=== PATIENT | female | born 1940 | race Caucasian/White ===

== ENCOUNTER 2022-06-13 20:06 | Outpatient (CLI) | payer MEDICARE, BC, SELFPAY | END 2022-06-13 20:07 | disposition home or self-care (01) | LOC: AMB 06-23 14:07 | PROVIDERS: PCP Family Medicine; Visit Provider Family Medicine | DX: R53.1 Weakness (principal) | CPT/HCPCS: A0998 ==

== ENCOUNTER 2022-07-14 12:38 | Emergency (ER) | payer MEDICARE, BC, SELFPAY ==
[2022-07-14 12:52] VITALS: BP 123/79; PULSE 91; RESP 18; TEMP 36.5; O2SAT 93; BMI 94.6
--- NOTE | 2022-07-14 14:06 | CRLHL7_ITS ---
For Patients: As a result of the Century Cures Act, medical imaging exams and procedure reports are released immediately into your electronic medical record. You may view this report before your referring provider. If you have questions, please contact your health care provider. INDICATION: Left ankle injury TECHNIQUE: X-ray left ankle, three views COMPARISON: None FINDINGS: Marked diffuse subcutaneous edema. The ankle mortise is intact. Small corticated osseous fragment at the lateral aspect of the calcaneus on the AP view appears chronic. Negative for acute fracture or dislocation. Moderate calcaneal spur. IMPRESSION: Marked subcutaneous edema. No acute fracture or dislocation. Moderate calcaneal spur. Dictated by Claire Martinez MD @ 07/14/2022 3:02:06 PM (Electronically Signed)
--- NOTE | 2022-07-14 14:56 | ED_ITS ---
HPI - Extremity Injury (Lower) General Chief Complaint: Extremity Pain/Injury, Lower Stated Complaint: Cant put weight on left leg Time Seen by Provider: 07/14/22 14:51 History of Present Illness HPI Narrative: This 82-year-old female comes in with severe pain in her left ankle. She states that she fell about a month ago and did have x-ray at that time. She was told that it was an ankle sprain. She has been ambulating on this ankle since then but reports that her pain is been worse over the past week and today she had great difficulty bearing weight due to pain in her left ankle. She does not report any other injury. She does live alone at home. Related Data Home Medications Medication Instructions Recorded Confirmed atorvastatin 20 mg tablet mg 07/14/22 bupropion HCl 150 mg 24 hr tablet, mg PO 07/14/22 extended release irbesartan 75 mg tablet mg 07/14/22 metformin 500 mg tablet mg 07/14/22 oxybutynin chloride 5 mg tablet mg 07/14/22 verapamil 240 mg tablet,extended mg PO 07/14/22 release Allergies Allergy/AdvReac Type Severity Reaction Status Date / Time No Known Drug Allergies Allergy Verified 07/14/22 12:58 Review of Systems Status of ROS: Reports: 10 or more systems reviewed and unremarkable except as noted in History and below Narrative: Constitutional: No fevers, no weight gain or loss. Eyes: No discharge. No vision changes. HENT: No congestion, no sore throat, no ear pain. Cardiovascular: No chest pain, no palpitations. Respiratory: No shortness of breath, no wheezes, no cough. Gastrointestinal: No abdominal pain, no vomiting, no diarrhea. Genitourinary: No dysuria, no hematuria. Musculoskeletal: Left ankle pain as described above. Skin: No rashes, no pruritis. Neurological: No dizziness, weakness, sensory change, speech change. Endo/Heme/Allergies: No bruising or bleeding. No polydipsia. Pysch: no suicidality, no anxiety, no insomnia. All other systems reviewed and are negative. Exam Narrative: Exam Narrative: Constitutional: Well-developed, well-nourished, no acute distress. HEENT: Normocephalic, atraumatic. Neck: Normal range of motion. Nontender. Supple. Heart: Regular. No murmurs. Normal rate. Intact distal pulses. Lungs: Clear to auscultation. No chest discomfort. No wheezes, rhonchi, or rales. Abdomen: Normal bowel sounds. Nontender. No rebound tenderness. Genitalia: Deferred. Back: No midline tenderness. Normal range of motion. Extremities: Left ankle pain. No sign of deformity or bruising. No ligament instability. Skin: Intact. No rash. Warm. No erythema or pallor. Neurologic: No altered sensation. No weakness. Alert and oriented. Psychiatric: No suicidality. No anxiety or depression. No insomnia. Nursing notes and vitals signs are reviewed. Const: Vital Signs, click to edit/add: Vital Signs - 24 hr 07/14/22 12:52 Temperature 97.7 F Pulse Rate [Pulse Oximeter] 91 Respiratory Rate 18 Blood Pressure [Le ft Upper Arm] 123/79 Pulse Oximetry 93 Oxygen Delivery Me thod Room Air Course Vital Signs Vital signs: Initial Vital Signs Temperature 97.7 F 07/14/22 12:52 Temperature Source Temporal Artery Scan 07/14/22 12:52 Pulse Rate 91 07/14/22 12:52 Respiratory Rate 18 07/14/22 12:52 Blood Pressure 123/79 07/14/22 12:52 Blood Pressure Mean 93 07/14/22 12:52 Blood Pressure Position Supine 07/14/22 12:52 Pulse Oximetry 93 07/14/22 12:52 Oxygen Delivery Method 07/14/22 12:52 Vital Signs Temperature 97.7 F 07/14/22 12:52 Pulse Rate 91 07/14/22 12:52 Respiratory Rate 18 07/14/22 12:52 Blood Pressure 123/79 07/14/22 12:52 Pulse Oximetry 93 07/14/22 12:52 Oxygen Delivery Method 07/14/22 12:52 Temperature 97.7 F 07/14/22 12:52 Pulse Rate 91 07/14/22 12:52 Respiratory Rate 18 07/14/22 12:52 Blood Pressure 123/79 07/14/22 12:52 Pulse Oximetry 93 07/14/22 12:52 Oxygen Delivery Method 07/14/22 12:52 MDM - Extremity Injury (Lower) MDM Narrative Medical decision making narrative: This patient comes in with worsening left ankle pain since a fall that occurred about a month ago. X-ray images of the ankle today show no acute findings. She does have significant swelling in that left lower extremity chronically due to lymphedema. The patient received an intramuscular injection of morphine 10 mg which brought some relief to her symptoms. Family members will be able to stay with her and help her as needed. She is okay to be discharged home. She did receive a prescription for [place]. Imaging Data XR L Ankle: Radiologist's impression: Marked subcutaneous edema. No acute fracture or dislocation. Moderate calcaneal spur. Discharge Plan Discharge Clinical Impression: Ankle sprain and strain Patient Disposition: Home w/ Parent or Adult Condition: Stable Additional Instructions: Use medications as needed and directed. Increase activity as tolerated. Follow up with MD or return if worsening symptoms occur. Prescriptions: No Action metformin 500 mg tablet Label Comments: TAKE ONE TABLET BY MOUTH TWICE DAILY WITH MEALS atorvastatin 20 mg tablet Label Comments: TAKE ONE TABLET BY MOUTH ONE TIME DAILY AT BEDTIME irbesartan 75 mg tablet Label Comments: TAKE ONE TABLET BY MOUTH ONE TIME DAILY verapamil 240 mg tablet extended release PO Label Comments: TAKE ONE TABLET BY MOUTH ONE TIME DAILY with a meal oxybutynin chloride 5 mg tablet Label Comments: TAKE ONE TABLET BY MOUTH TWICE DAILY bupropion HCl 150 mg tablet extended release 24 hr PO Label Comments: TAKE ONE TABLET BY MOUTH EVERY DAY IN THE MORNING. Follow Up/Referrals: Joaquina Cartwright DO [Primary Care Provider] - Stand Alone Forms: [employer] Info Instructions
[2022-07-14 15:00] VITALS: BP 143/80; RESP 16
[2022-07-14 15:30] VITALS: BP 152/88; RESP 16
[2022-07-14] MEDS: MORPHINE 10 MG/ML inj IM (15:45)
[2022-07-14 16:00] VITALS: BP 135/78; RESP 18
[2022-07-14 16:30] VITALS: BP 125/67
--- OUTSIDE RECORDS SUMMARY | 2022-07-21 21:33 | XMS_ITS | Clinical Summary ---
:1940 Author Organization [facility] [place] [address] Care Team Providers Name Role Phone Yossi Mendezrick Unavailable Unavailable Shay Woodard MD Unavailable Joaquina Cartwright DO Primary Care Provider Allergies Active Allergy Reactions Severity Noted Date Comments Adhesive Tape Contact Dermatitis 03/01/2007 TAKES TH E SKIN OFF Aspirin, Buffered Anaphylaxis High 03/01/2007 Dexamethasone GI Upset Low 03/01/2007 Esophagitis fr om prolonged high dose use. Brompheniramine Maleate Rash 03/01/2007 Triamterene-Hydrochloroth Itching 03/01/2007 iazid Ethylenediamine 08/10/2010 Raw Skin Iodine *Unknown - Pt 06/18/2008 Doesn't Remember Lisinopril Cough 03/14/2011 Shellfish Containing Anaphylaxis 06/18/2008 Products Simvastatin Myalgia 02/27/2012 Improved after stopping med Sulfite Anaphylaxis High 03/01/2007 Tetanus Antitoxin 03/01/2007 possible a llergy Hydrocodone-Acetaminophen Hypotension 04/10/2012 Ca used low BP, feels Strange Medications Medication Sig Dispensed Refills Start Date End Date Status Insulin USE USE 100 Each 1 08/29/2016 Active Syringe-Needle U-100 DIRECTED WITH 0.5 mL 31 gauge x INSULIN 02/26Indications: Diabetes mellitus without complication (HC) acetaminophen Take 1 tablet by 0 12/02/2018 Active (TYLENOL EXTRA mouth every 6 STRGTH) 500 mg tablet hours if needed. Max acetaminophen dose: 4000mg in 24 hrs. ULTICARE PEN NEEDLE FOR ADMINISTERING 100 Each 3 12/05/2018 Active 31 gauge x INSULIN AT HOME. 02/26Indications: Controlled type 2 diabetes mellitus with complication, with long-term current use of insulin (HC) CPAPIndications: CPAP machine for 1 Device 11/10/2019 Active Obstructive sleep home use at apnea pressure: 11 , Heated humidifier x 1 q 5 yr, Water chamber x 1 q 6 mo, chin strap x 1 q 6 mo, nasal interface mask x 1 q 3 mo, with nasal cushion x 2 q mo, heated pap tubing x 1 q 3 mo, headgear x 1 q 6 mo, non disposable filter 1 q 6 mo, disposable filter x 2 q mo Length of Need: 99 months, Frequency of use: Daily cholecalciferol Take 1 capsule by 0 09/14/2020 Active (VITAMIN D-3) 2,000 mouth once daily. unit capsule 3 times weekly Blood-Glucose Meter Dispense glucose 1 Each 0 09/12/2021 Active (True Metrix Glucose meter, test strips Meter)Indications: and lancets Diabetes mellitus covered by the without complication patient insurance. (HC) Test 1 time per day. blood sugar Dispense item 100 Each 3 09/12/2021 Act allie diagnostic (True covered by pt ins Metrix Glucose Test TEST ONCE DAILY Strip) stripIndications: Diabetes mellitus without complication (HC) insulin glargine, Inject 12 units 10 Each 3 10/03/2021 Active U-100, 100 unit/mL (3 subcutaneous mL) penIndications: before bedtime. Controlled type 2 Product diabetes mellitus desired:BASAGLAR with complication, with long-term current use of insulin (HC) diclofenac topical Apply 2 g 100 g 1 10/03/2021 Active (VOLTAREN) 1 % topically to gelIndications: DDD affected area(s) 4 (degenerative disc times daily. Apply disease), lumbosacral to lower back four times daily for pain EPINEPHrine (EpiPen Inject 0.3 mg (1 2 Each 1 06/19/2022 Active 2-Carlos) 0.3 mg/0.3 mL pen) intramuscular auto-injectorIndicati each time if ons: Allergic needed for reaction to drug, Allergic Reaction. sequela oxybutynin (DITROPAN) Take 1 Tablet (5 180 Tablet 0 06/19/2022 Active 5 mg mg) by mouth two tabletIndications: times daily. Urinary incontinence, unspecified type atorvastatin Take 1 Tablet (20 90 Tablet 3 10/02/2022 Active (LIPITOR) 20 mg mg) by mouth at tabletIndications: bedtime. Mixed hyperlipidemia buPROPion (WELLBUTRIN Take 1 Tablet (150 90 Tablet 3 2 Active XL) 150 mg mg) by mouth every Extended-Release morning. tabletIndications: Fibromyalgia DULoxetine (CYMBALTA) Take 2 Capsules 180 Capsule 3 10/02/2022 Active 30 mg Delayed-release (60 mg) by mouth capsuleIndications: once daily. Anxiety, Depression, recurrent (HC) irbesartan (AVAPRO) Take 1 Tablet (75 90 Tablet 3 10/02/2022 Active 75 mg mg) by mouth once tabletIndications: daily. Diabetic nephropathy associated with type 2 diabetes mellitus (HC) metFORMIN Take 1 Tablet (500 180 Tablet 3 10/02/2022 Active (GLUCOPHAGE) 500 mg mg) by mouth two tabletIndications: times daily with Diabetes mellitus meals. 9 am and 7 without complication pm (HC) verapamil SR (CALAN Take 1 Tablet (240 90 Tablet 3 10/02/2022 Active SR) 240 mg extended mg) by mouth once release daily with a meal. tabletIndications: Essential hypertension clotrimazole Apply topically to 45 g 0 06/19/2022 Active (LOTRIMIN) 1 % affected area(s) creamIndications: two times daily. Tinea corporis Until resolved, about 2-4 weeks Active Problems Problem Noted Date CKD (chronic kidney disease) stage 3, GFR 30-59 ml/min 10/23/2020 Overview: Per chart review: creatinine intermitten tly elevated since 2012 ranging from 1.07-1.66. In 2019, Dr Guerrero noted baseline to be around 1.2 ROB started Dec with increase creatinine 20-30% (depending if compare with 1.07 or baseline 1.2). Repeat end of Oct 2020, if increasing further t/c decreasing irbesartan and nephrology consult. See lab note sent via [facility] [facility] [facility]. Controlled type 2 diabetes mellitus with complication, with long-term 04/12/2020 current use of insulin Trigeminal neuralgia of right side of face 09/03/2019 BRITANY 04/05/2004 AHI-45 09/22/2018 Lymphedema of both lower extremities 07/01/2015 DDD (degenerative disc disease), thoracic 12/02/2014 DDD (degenerative disc disease), lumbar 12/02/2014 Severe lumbar facet arthropathy 10/20/2014 S/P knee replacement 06/07/2012 ACP (advance care planning) 08/13/2011 Overview: Discussed 08/13/2011 At risk for falling 08/13/2011 Overview: Uses cane when out; home: has a walker. 08/13/2011 Chronic pain 05/16/2011 Fibromyalgia 07/20/2010 Overview: S/P Accupuncture x 2 with no benefit. 05/16/2011 Unspecified urinary incontinence 07/20/2010 Overview: Reports much improved with Ditropan. Glenohumeral Arthropathy, Right Shoulder 03/22/2010 Colonic polyps 04/07/2009 Overview: Colonoscopy 04/2009 normal repeat in 5 ye ars Colonoscopy 06/2014 diverticulosis, no fo llow up needed Unspecified essential hypertension 06/19/2008 Esophageal reflux 07/24/2007 Dysthymic disorder 07/24/2007 Generalized osteoarthrosis, unspecified site 7 Type II or unspecified type diabetes mellitus without mention of 07/24/2007 complication, not stated as uncontrolled Overview: No October 2012, 11/27 Morbid obesity 05/07/2007 Mixed hyperlipidemia 03/06/2007 Other specified cardiac dysrhythmias(427.89) 7 Overview: SVT s/p Ablation 10/1991 Resolved Problems Problem Noted Date Resolved Date Long-term (current) use of anticoagulants 06/28/2008 02/03/2009 Routine general medical examination at [facility] 007 10/20/2014 facility Encounters Date Type Specialty Care Team Description 07/18/2022 Office Visit Joaquina Cartwright DO Derm Problem (Spot on right arm/); Ankle Pa in/problem 07/18/2022 Travel 06/19/2022 Office Visit Joaquina Cartwright DO Derm Problem (Check spot on (L) arm); Refil l Request; Leg Swelling; M edication Management; Hea ring Problem; Lab; B ack Pain 06/19/2022 Travel 05/21/2022 Refill Joaquina Cartwright DO Refi ll Request; OXYBUTYNIN 05/17/2022 Refill Joaquina Cartwright DO Refi ll Request (Oxybutinin 5mg tab ) 04/30/2022 Refill Joaquina Cartwright DO Refi ll Request (Duloxetine) from Last 3 Months Immunizations Name Administration Dates Next Due AMB INFLUENZA IIV3 (AGE 65+ YRS) PF 07/14/2018 (Flu Clinic Only) COVID-19 vaccine (Moderna 12/29/2020 100mcg/0.5mL) PF, MDV Influenza, High-dose Inactivated 06/14/2020, 07/14/2019, , 09/16/2015 Influenza, High-dose Quadrivalent 07/25/2021 Inactivated Influenza, Inactivated AIIV4 (Age 65+ 06/19/2022 Years) Preserv Free Influenza, Inactivated IIV3 (Age 65+ 08/07/2017 Years) Preserv Free Pneumococcal Poly,23-Valent 05/17/2016 (Pneumovax) Pneumococcal conj 13-Valent (Prevnar 02/15/2015 13) Zoster (Shingrix-RZV, recombinant) 01/20/2021, 09/20/2020 Family History Medical History Relation Name Comments Heart Disease Father [place] Hypertension Father [place] Hypertension Mother Melissa Stroke Mother Melissa cva at 56yo Heart Disease Sister Rhina Tachycardia; sp Ablation - didn't work; on Atenolol Anesthesia Problem No Family History Blood Disease No Family History Cancer-breast No Family History Relation Name Status Comments Father Boston (Age 61) accidental asp hyxiation Mother Melissa (Age 63) hemorrhagic [place] Sister Rhina Alive Social History Tobacco Use Types Packs/Day Years Used Date Never Smoker Smokeless Tobacco: Never Used Tobacco Cessation: Counseling Given: Yes Alcohol Use Standard Drinks/Week Comments Yes 0 (1 standard drink = 0.6 oz pure alcoho l) Rare Alcohol Habits Answer Date Recorded How often do you have a drink containing alcohol? Monthly or less 04/12/2020 How many drinks containing alcohol do you have on a 1 or 2 02/25/2019 typical day when you are drinking? How often do you have six or more drinks on one Never 02/25/2019 occasion? Comment: Rare 06/19/2022 Sex Assigned at Date Recorded Not on file COVID-19 Exposure Response Date Recorded In the last 10 days, have you been in contact with No / Unsu re 07/18/2022 10:09 AM CDT someone who was confirmed or suspected to have Coronavirus/COVID-19? Obstetrics History Para Term AB IAB SAB Ectopic Multiple Living Live Births 2 2 1 2 Date Outcome GA Total Labor/2nd/3rd Weight Sex Delivery Anes PTL Judy A 1 A5 Name Clin Labor Para Term Last Filed Vital Signs Vital Sign Reading Time Taken Comments Blood Pressure 131/76 07/18/2022 10:33 AM CDT Pulse 88 07/18/2022 10:33 AM CDT Temperature 37.5 ??C (99.5 ??F) 04/12/2020 11:05 AM CDT Respiratory Rate 20 05/30/2017 2:15 PM CDT Oxygen Saturation 96% 07/18/2022 10:33 AM CDT Inhaled Oxygen Concentration - - Weight 111.8 kg (246 lb 6.4 oz) 06/19/2022 11:33 AM CDT Height 161.3 cm (5' 3.5) 10/03/2021 7:51 AM CEREAL CHEMIST Body Mass Index 42.96 10/03/2021 7:51 AM CEREAL CHEMIST Plan of Treatment Upcoming Encounters Date Type Specialty Care Team Description 08/15/2022 Office Visit Bhumi Velez DPM [address] [phone] (Wo sonia) 10/04/2022 Office Visit Joaquina Cartwright DO [phone] (Adriano scott) Health Maintenance Due Date Last Done Comments Tetanus booster 03/18/2018 03/18/2008 (Declined) COVID-19 vaccine series (4 - 11/23/2021 09/28/2021, 021, Booster for Moderna series) 11/28/2020 BMI (ht and wt on same day) for 10/03/2022 10/03/2021, 11/2019, age 18+ 09/03/2019, Additional history exists Medicare Wellness for age 65+ 10/03/2022 10/03/2021, 2019, 09/03/2019, Additional history exists Depression screening for age 12+ 12/19/2022 12/19/2021, , 10/03/2021, Additional history exists DEXA/DXA scan for age 65+ Completed 04/17/2011 Pneumococcal series for age 65+ Completed 05/17/2016, 02/2015 Zoster (shingles) series for age Completed 01/20/2021, 05/2020 50+ Influenza for age 65+ Completed 06/19/2022, 07/25/2021, 06/14/2020, Additional history exists Medical Devices Implanted Type Area Crew Boss Device Shelf Model / Identifier Expiration Date Ser ial / Lot Head Fem Aubrey M 36mm [id number] - [id number] Left: Hip DE PUY [id number]# / Implanted: Qty: 1 on 06/18/2008 at [facility] / [id number] Procedures Procedure Name Priority Date/Time Associated Diagnosis Comme nts PATH TISSUE EXAM Routine 07/18/2022 11:00 AM Skin lesion of le ft Results for this CDT arm procedure are i n the results section. LATISHA Routine 06/19/2022 11:59 AM Skin lesion Results for this PREP,SKIN,HAIR,NAIL CDT procedur e are in the results section. from Last 3 Months Results PATH TISSUE EXAM (07/18/2022 11:00 AM CDT) Component Value Ref Test Analysis Performed At [facility] gist Range Method Time Signature Case Report Pathology Report ?Case: [id number] ? 07/20/2022 [facility] Authorizing Provider: ??Joshua bailey, Joaquina Loredo, DO ?Collected: ? 07/18/2022 1100 ? 12:43 PM LABORAT ORY-CE Ordering Location: ? [facility] [place] ?? Received: ?07/18/2022 1127 ? CDT NTRAL ? Clinic ? LABORATORY Pathologist: ? Greg Hernandez MD ? Specimen: ?Right Forearm ? Final SKIN, RIGHT FOREARM, BIOPSY: 07/20/2022 [facility] Electronically Diagnosis 1. Seborrheic keratosis 12:43 PM VENKATAA AYE-CE signed by David, 2. Negative for malignancy CDT NTR AL Greg Bautista MD LABORATORY on 022 at 12:43 PM Clinical Right forearm 07/20/2022 [facility] Information lesion, 12:43 PM LABORATORY-CE growing and CDT NTRAL changing. LABORATORY Gross A) Received in formalin, lab eled with the patient's name and date of , is a 1.9 x 1.1 cm skin biopsy. There is a 1.4 x 0.7 x 0.3 cm granular brown-black ??lesion. The specimen is inked red, seriall 07/20/2022 [facility] Description y sectioned and entirely submitted in 2 cassettes. 12:43 PM LABORATORY-CE CDT NTRAL Alex Carballo, 07/18/2022 5:46 PM LABORATORY Microscopic The final diagnosis is based on microscopic examination of appropriate sections of all specimens. 07/20/2022 DAVE YOUNG Description 12:43 PM LABORATORY-CE The epidermis shows acantho sis and hyperkeratosis. No significant atypia is seen. The presence of red ink is confirmed on tissue sections. CDT NTRAL LABORATORY Additional 07/20/2022 [facility] Information Interpreted at [facility], [facility] - [address], [place] [address] 12:43 PM LABORATORY-CE CDT NTRMN LABORATORY Specimen Anatomical Collection Method Collection Time Receive d Time (Source) Location / / Volume Laterality Other (Right Non-Blood / 07/18/2022 11:00 07/18/2022 Forearm) Unknown AM CDT 11:27 AM CDT Joaquina Cartwright DO PATHOLOGY/CYTOLOGY Performing Organization Address City/State/ZIP Code Phon e Number [facility] [address] [place] [address] LABORATORY-CENTRAL [address] LABORATORY (ABNORMAL) LATISHA PREP,SKIN,HAIR,NAIL (06/19/2022 11:59 AM CDT) [facility] gist Method Time Signature OBSERVATION Fungal 06/19/2022 [facility] elements 12:20 PM CDT [place] seen (A) CLINIC Specimen Anatomical Collection Method Collection Time Receive d Time (Source) Location / / Volume Laterality Other SPECIMEN FROM SKIN Non-Blood / 06/19/2022 11:59 06/19 OBTAINED BY Unknown AM CDT 11:59 AM CDT SCRAPING / Unknown Joaquina Cartwright DO MICROBIOLOGY Performing Organization Address City/State/ZIP Code Phon e Number [facility] [address] [place], [place] [id number] from Last 3 Months Insurance Payer Benefit Plan / Subscriber ID Effective Dates Phone Addre ss Type Group MEDICARE PART B MEDICARE PART B [id number] 2003-Presen ATTN: CLAIMS - HB USE ONLY HB ONLY t [address] [place] [address] MEDICARE PART A MEDICARE PART A [id number] 2003-Presen ATTN: CLAIMS - HB USE ONLY HB ONLY t [address] [place] [address] MEDICARE PART B MEDICARE PART B [id number] 2003-Presen ATTN: CLAIMS - HB USE ONLY HB ONLY t [address] [place] [address] MEDICARE PART A MEDICARE PART A [id number] 2003-Presen ATTN: CLAIMS - HB USE ONLY HB ONLY t [address] [place] [address] BLUE CROSS BLUE CROSS OF [id number] 2007-Presen [address] [place] [facility] [place] [address] BLUE CROSS MR BLUE CROSS [id number] 2016-Presen [address] [address] [place], [place] ONLY [id number] Paulette Monroe Personal/Family Self 1940 [address] [id number] Advance Directives Documents on File Type Date Recorded 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
== END 2022-07-14 17:05 | disposition home or self-care (01) ==
PROVIDERS: Emergency Provider Emergency Medicine Emergency Medical Services; PCP Family Medicine
DX: S93.402A Sprain of unspecified ligament of left ankle, initial encounter (principal); S96.912A Strain of unspecified muscle and tendon at ankle and foot level, left foot, initial encounter; X58.XXXA Exposure to other specified factors, initial encounter; Y93.9 Activity, unspecified; Y92.9 Unspecified place or not applicable; Y99.9 Unspecified external cause status
CPT/HCPCS: 73610; 96372; 99283; 99284; J2270

== ENCOUNTER 2022-08-07 11:52 | Outpatient (CLI) | payer MEDICARE, BC, SELFPAY ==
--- OUTSIDE RECORDS SUMMARY | 2022-09-16 18:09 | XMS_ITS | Clinical Summary ---
:1940 Author Organization [facility] [place] [address] Care Team Providers Name Role Phone Yosis Mendezrick Unavailable Unavailable Shay Woodard MD Unavailable [...] Strange Medications Medication Sig Dispensed Refills Start End Status Date Date Insulin USE USE 100 Each 1 08/29/20 Active Syringe-Needle DIRECTED WITH 16 U-100 0.5 mL 31 INSULIN gauge x 02/26Indications: Diabetes mellitus without complication (HC) acetaminophen Take 1 tablet by 0 12/02/19 Active (TYLENOL EXTRA mouth every 6 19 STRGTH) 500 mg hours if needed. tablet Max acetaminophen dose: 4000mg in 24 hrs. ULTICARE PEN NEEDLE FOR 100 Each 3 02/22/20 Active 31 gauge x ADMINISTERING 19 02/26Indications: INSULIN AT HOME. Controlled type 2 diabetes mellitus with complication, with long-term current use of insulin (HC) CPAPIndications: CPAP machine for 1 Device 11/10/19 Active Obstructive sleep home use at 20 apnea pressure: 11 , Heated humidifier x [...] of use: Daily cholecalciferol Take 1 capsule 0 09/14/20 Active (VITAMIN D-3) 2,000 by mouth once 20 unit capsule daily. 3 times weekly Blood-Glucose Meter Dispense glucose 1 Each 0 09/12/20 Active (True Metrix meter, test 21 Glucose strips and Meter)Indications: lancets covered Diabetes mellitus by the patient without insurance. Test complication (HC) 1 time per day. blood sugar Dispense item 100 Each 3 09/12/20 Acti ve diagnostic (True covered by pt 21 Metrix Glucose Test ins TEST ONCE Strip) DAILY stripIndications: Diabetes mellitus without complication (HC) diclofenac topical Apply 2 g 100 g 1 10/03/20 A ctive (VOLTAREN) 1 % topically to 21 gelIndications: DDD affected area(s) (degenerative disc 4 times daily. disease), Apply to lower lumbosacral back four times daily for pain EPINEPHrine (EpiPen Inject 0.3 mg (1 2 Each 1 06/19/20 Active 2-Carlos) 0.3 mg/0.3 pen) 22 mL intramuscular auto-injectorIndica each time if tions: Allergic needed for reaction to drug, Allergic sequela Reaction. oxybutynin Take 1 Tablet (5 180 Tablet 0 06/19/20 A ctive (DITROPAN) 5 mg mg) by mouth two 22 tabletIndications: times daily. Urinary incontinence, unspecified type atorvastatin Take 1 Tablet 90 Tablet 3 10/02/20 Act allie (LIPITOR) 20 mg (20 mg) by mouth 22 tabletIndications: at bedtime. Mixed hyperlipidemia buPROPion Take 1 Tablet 90 Tablet 3 10/02/20 Active (WELLBUTRIN XL) 150 (150 mg) by 22 mg Extended-Release mouth every tabletIndications: morning. Fibromyalgia DULoxetine Take 2 Capsules 180 Capsule 3 10/02/20 A ctive (CYMBALTA) 30 mg (60 mg) by mouth 22 Delayed-release once daily. capsuleIndications: Anxiety, Depression, recurrent (HC) irbesartan (AVAPRO) Take 1 Tablet 90 Tablet 3 10/02/20 Active 75 mg (75 mg) by mouth 22 tabletIndications: once daily. Diabetic nephropathy associated with type 2 diabetes mellitus (HC) metFORMIN Take 1 Tablet 180 Tablet 3 10/02/20 Activ e (GLUCOPHAGE) 500 mg (500 mg) by 22 tabletIndications: mouth two times Diabetes mellitus daily with without meals. 9 am and complication (HC) 7 pm verapamil SR (CALAN Take 1 Tablet 90 Tablet 3 10/02/20 Active SR) 240 mg extended (240 mg) by 22 release mouth once daily tabletIndications: with a meal. Essential hypertension clotrimazole Apply topically 45 g 0 06/19/20 A ctive (LOTRIMIN) 1 % to affected 22 creamIndications: area(s) two Tinea corporis times daily. Until resolved, about 2-4 weeks insulin glargine, Inject 12 units 10 Each 3 10/03/20 Discontinued U-100, 100 unit/mL subcutaneous 21 022 (*Discontinued (3 mL) before bedtime. by elyssa gamboa penIndications: Product clin ician) Controlled type 2 desired:BASAGLAR diabetes mellitus with complication, with long-term current use of insulin (HC) Active Problems Problem Noted Date CKD (chronic kidney disease) stage 3, GFR 30-59 ml/min 10/23/2020 Overview: Per chart review: creatinine intermitten tly elevated since 2012 ranging from 1.07-1.66. In 2018, Dr Guerrero noted baseline to be around 1.2 ROB started Dec with increase creatinine 20-30% (depending if compare with 1.07 or baseline 1.2). Repeat end of Oct 2020, if increasing further t/c decreasing irbesartan and nephrology consult. See lab note sent via [facility]. Controlled type 2 diabetes mellitus with complication, [...] 02/03/2009 Routine general medical examination at [facility] 007 10/20/2014 facility Encounters Date Type Specialty Care Team Description 08/22/2022 Office Visit Bailey Staley MD Hospita l F/U ([facility] COVID-19, alter ed mental status); Medica tion List Update (D/c ins ulin) 08/22/2022 Travel 08/16/2022 Telephone Rudy Velez DPM Que stions 08/07/2022 Orders Only Scanner <No scans attac hed> 08/06/2022 Orders Only Scanner <No scans attac hed> 07/18/2022 Office Visit Joaquina Cartwright, DO Derm Problem (Spot on right arm/); Ankle Pa in/problem 07/18/2022 Travel 07/14/2022 Orders Only Scanner <No scans attac hed> 06/19/2022 Office Visit Joaquina Cartwright, DO Derm Problem (Check spot on (L) arm); Refil l Request; Leg Swelling; M edication Management; Hea ring Problem; Lab; B ack Pain 06/19/2022 Travel from Last 3 Months Immunizations Name Administration [...] in contact with No / Unsu re 08/22/2022 12:42 PM [employer] someone who was confirmed or suspected to have Coronavirus/COVID-19? Obstetrics History Para Term AB IAB SAB Ectopic Multiple Living Live Births 2 2 1 2 Date Outcome GA Total Labor/2nd/3rd Weight Sex Delivery Anes PTL Judy A 1 A5 Name Clin Labor Para Term Last Filed Vital Signs Vital Sign Reading Time Taken Comments Blood Pressure 135/73 08/22/2022 1:05 PM [employer] Pulse 78 08/22/2022 1:05 PM [employer] Temperature 37.5 ??C (99.5 ??F) 04/12/2020 11:05 AM CDT Respiratory Rate 20 05/30/2017 2:15 PM CDT Oxygen Saturation 96% 08/22/2022 1:05 PM [employer] Inhaled Oxygen Concentration - - Weight 111.7 kg (246 lb 4.8 oz) 08/22/2022 1:05 PM [employer] Height 161.3 cm (5' 3.5) 10/03/2021 7:51 AM [employer] Body Mass Index 42.95 10/03/2021 7:51 AM [employer] Plan of Treatment Upcoming Encounters Date Type Specialty Care Team Description 09/18/2022 Office Visit Bhumi Velez DPM [address] [phone] (Wo rk) 10/04/2022 Office Visit Joaquina Cartwright DO [address] 1 [phone] (Wo rk) Health Maintenance Due Date Last Done Comments [...] history exists Medical Devices Implanted Type Area Second Rigger Device Shelf Model / Identifier Expiration Date Ser ial / Lot Head Fem Aubrey M 36mm [id number] - [id number] Left: Hip DE PUY [id number]# / Implanted: Qty: 1 on 06/18/2008 at [facility] / [id number] Procedures Procedure Name Priority Date/Time Associated Comments Diagnosis SCAN-CT INTERPRETATION 08/07/2022 12:00 AM CDT SCAN-RADIOLOGY REPORT 08/06/2022 12:00 Re sults for this AM CDT procedure are i n the results section. PATH TISSUE EXAM Routine 07/18/2022 11:00 Skin lesion of Resul ts for this AM CDT left arm procedure are i n the results section. SCAN-RADIOLOGY REPORT 07/14/2022 12:00 Re sults for this AM CDT procedure are i n the results section. LATISHA PREP,SKIN,HAIR,NAIL Routine 06/19/2022 11:59 Skin lesion Results for this AM CDT procedure are i n the results section. from Last 3 Months Results SCAN-CT INTERPRETATION (08/07/2022 12:00 AM CDT) Narrative This result has an attachment that is no t available. Scanner OTHER SCAN-RADIOLOGY REPORT (08/06/2022 12:00 AM CDT)Only the most recent of2 results within the time period is included. Narrative This result has an attachment that is no t available. Scanner OTHER PATH TISSUE EXAM (07/18/2022 11:00 AM CDT) Component Value Ref Test Analysis Performed At [facility] gist Range Method Time Signature Case Report Pathology Report ?Case: [id number] ? 07/20/2022 [facility] Authorizing Provider: ??Joaquina Ramos DO ?Collected: ? 07/18/2022 1100 ? 12:43 PM LABORAT ORY- Ordering Location: ? [facility] ?? Received: ?07/18/2022 1127 ? CDT NTRAL ? Clinic ? LABORATORY Pathologist: ? Greg Hernandez MD ? Specimen: ?Right Forearm ? Final SKIN, RIGHT FOREARM, BIOPSY: 07/20/2022 [facility] Electronically Diagnosis 1. Seborrheic keratosis 12:43 PM LABORA ALLYY-CE signed by David, 2. Negative for malignancy CDT NTR DAVE Bautista MD LABORATORY on 022 at 12:43 PM Clinical Right forearm 07/20/2022 [facility] Information lesion, 12:43 PM LABORATORY-CE growing and CDT NTRAL changing. LABORATORY Gross A) Received in formalin, lab eled with the patient's name and date of , is a 1.9 x 1.1 cm skin biopsy. There is a 1.4 x 0.7 x 0.3 cm granular brown-black ??lesion. The specimen is inked red, seriall 07/20/2022 [facility] Description y sectioned and entirely submitted in 2 cassettes. 12:43 PM LABORATORY-CE CDT NTRAL Alex Carballo, 07/18/2022 5:46 PM LABORATORY Microscopic The final diagnosis is based on microscopic examination of appropriate sections of all specimens. 07/20/2022 [employer] Description 12:43 PM LABORATORY-CE The epidermis shows acantho sis and hyperkeratosis. No significant atypia is seen. The presence of red ink is confirmed on tissue sections. CDT NTRAL LABORATORY Additional 07/20/2022 [facility] Information Interpreted at [facility], Central Laboratory - [address], [place] [address] 12:43 PM LABORATORY-CE CDT NTRAL LABORATORY Specimen Anatomical Collection Method Collection Time Receive d Time (Source) Location / / Volume Laterality Other (Right Non-Blood / 07/18/2022 11:00 07/18/2022 Forearm) Unknown AM CDT 11:27 AM CDT Joaquina Cartwright DO PATHOLOGY/CYTOLOGY Performing Organization Address City/State/ZIP Code Phon e Number [facility] [address] [place] [address] LABORATORY-CENTRAL 2000 LABORATORY (ABNORMAL) LATISHA PREP,SKIN,HAIR,NAIL (06/19/2022 11:59 AM CDT) [facility] gist Method Time Signature OBSERVATION Fungal 06/19/2022 [facility] elements 12:20 PM CDT [facility] seen (A) CLINIC Specimen Anatomical Collection Method Collection Time Receive d Time (Source) Location / / Volume Laterality Other SPECIMEN FROM SKIN Non-Blood / 06/19/2022 11:59 06/19 OBTAINED BY Unknown AM CDT 11:59 AM CDT SCRAPING / Unknown Joaquina Cartwright DO MICROBIOLOGY Performing Organization Address City/State/ZIP Code Phon e Number [facility] [address] [place] [id number] from Last 3 Months Insurance Payer Benefit Plan / Subscriber ID Effective Dates Phone Addre ss Type Group MEDICARE PART B MEDICARE PART B [id number] 2003-Presen ATTN: CLAIMS - HB USE ONLY HB ONLY t [address] [place] [address] MEDICARE PART A MEDICARE PART A [id number] 2003-Presen ATTN: CLAIMS - HB USE ONLY HB ONLY t [address] [place] [phone] MEDICARE PART B MEDICARE PART B [id number] 2003-Presen ATTN: CLAIMS - HB USE ONLY HB ONLY t [address] [place] [phone] MEDICARE PART A MEDICARE PART A [id number] 2003-[employer]en ATTN: CLAIMS - HB USE ONLY HB ONLY t [address] [place] [phone] BLUE CROSS BLUE CROSS OF [id number] 2007-Presen [address] [place] [address] BLUE CROSS MR BLUE CROSS [id number] 2016-Presen [address] [address] [place] t [place], [place] MR PB ONLY [id number] Paulette Monroe Personal/Family Self 1940 [address] [place] [phone] Advance Directives Documents on File Type Date Recorded Patient Registered Nurse Hh Case Manager Explanati on Healthcare Directive 12/19/2021 3:39 PM HEALTHCARE DIRECTIVE, 02/25/2019 Latest Code Status on File Code Status Date Activated Date Inactivated Comments Full Code 06/18/2008 10:57 AM 06/22/2008 1:52 PM Full Code 06/18/2008 9:12 AM 06/18/2008 10:57 AM Care Teams Dye Lab Technician Relationship Specialty Start Date End Date Joaquina Cartwright DO PCP - General Family Practice 11/14/[address] [place] [address] Yossi Mendez Orthopedics Surgery - Orthopedics 02/27/12 Shay Woodard MD Endocrinology 02/27/12 [address] [facility] [address] [place] [address]
== END 2022-08-07 11:53 | disposition home or self-care (01) ==
LOC: AMB 09-16 18:06
PROVIDERS: PCP Family Medicine; Visit Provider Family Medicine
DX: S39.92XA Unspecified injury of lower back, initial encounter (principal); S09.90XA Unspecified injury of head, initial encounter; W18.30XA Fall on same level, unspecified, initial encounter; Y92.031 Bathroom in apartment as the place of occurrence of the external cause
CPT/HCPCS: A0425; A0427

== ENCOUNTER 2022-08-07 12:49 | Observation (INO) | payer MEDICARE, BC, SELFPAY ==
[2022-08-07] VITALS (9 sets, daily range): BP systolic 109–145; BP diastolic 68–88; PULSE 76–97; RESP 18–22; TEMP 36.7–37.3; O2SAT 94–99; BMI 41.7; BMI 46.2
--- NOTE | 2022-08-07 13:19 | CRLHL7_ITS ---
For Patients: As a result of the Century Cures Act, medical imaging exams and procedure reports are released immediately into your electronic medical record. You may view this report before your referring provider. If you have questions, please contact your health care provider. INDICATION: FALL TECHNIQUE: Head CT without contrast. COMPARISON: CT head November 23, 2018 FINDINGS: CSF spaces: Within normal limits for age. Brain parenchyma and extra-axial spaces: There are nonspecific moderate low attenuation white matter changes consistent with chronic microvascular disease. No sign of intracranial hemorrhage, or midline shift. Central greater than peripheral volume loss with associated ex vacuo dilatation of the lateral ventricles. Stable left cerebellar encephalomalacia. Skull base and calvarium: The visualized paranasal sinuses and mastoid air cells demonstrate no acute or significant findings. The visualized orbits are grossly unremarkable. No skull fractures. Vascular calcifications. IMPRESSION: No acute intracranial abnormality. Central greater than peripheral volume loss with associated ex vacuo dilatation of the lateral ventricles. Finding can potentially be seen in the setting of normal pressure hydrocephalus (NPH). 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 Please note that all CT scans at this facility use dose modulation, iterative reconstruction, and/or weight-based dosing when appropriate to reduce radiation dose to as low as reasonably achievable. Dictated by Jesús Stevenson MD @ 08/07/2022 2:05:47 PM (Electronically Signed)
--- NOTE | 2022-08-07 13:19 | CRLHL7_ITS ---
For Patients: As a result of the Century Cures Act, medical imaging exams and procedure reports are released immediately into your electronic medical record. You may view this report before your referring provider. If you have questions, please contact your health care provider. Indication: Fall. Technique: Three views. Comparison: 09/08/2018. Findings/Impression: Status post bilateral total hip arthroplasties. No evidence of fracture or loosening. No hip dislocation. Degenerative changes in the bilateral SI joints and visualized lower lumbar spine. Arcuate lines are intact. Pubic symphysis is congruent. Dictated by Wild Avila MD @ 08/07/2022 2:24:57 PM (Electronically Signed)
--- NOTE | 2022-08-07 13:19 | CRLHL7_ITS ---
For Patients: As a result of the Century Cures Act, medical imaging exams and procedure reports are released immediately into your electronic medical record. You may view this report before your referring provider. If you have questions, please contact your health care provider. INDICATION: Neck injury. Fell. TECHNIQUE: Volumetric helical scanning of the cervical spine was performed without contrast material. Sagittal and coronal reconstructions were also obtained. COMPARISON: None. FINDINGS: No fracture, traumatic subluxation or prevertebral soft tissue swelling is demonstrated. Multilevel spondylosis is demonstrated. C4, C5 and C6 are fused. The cervical spine is alordotic. IMPRESSION: 1. Negative for acute traumatic abnormality. 2. C4-C6 fusion, multilevel spondylosis and alordosis. Please note that all CT scans at this facility use dose modulation, iterative reconstruction, and/or weight-based dosing when appropriate to reduce radiation dose to as low as reasonably achievable. Dictated by Franck Jones MD @ 08/07/2022 2:33:10 PM (Electronically Signed)
[2022-08-07 14:27] LABS: Basophils Absolute Auto 0.01 K/uL (0.00-0.30); Basophils Percent Auto 0.1 % (0.0-3.0); Eosinophils Absolute Auto 0.03 K/uL (0.00-0.50); Eosinophils Percent Auto 0.4 % (0.0-7.0); Hematocrit 42.2 % (33.0-51.0); Hemoglobin* 13.3 gm/dL (12.0-16.0); Immature Granulocytes Abs Auto 0.01 K/uL (0.00-0.30); Lymphocytes Percent Auto 15.2 % (20-44); Mean Corpuscular HGB Conc 32 gm/dL (32-36); Mean Corpuscular Hemoglobin 32 pg (26-34); Mean Corpuscular Volume 100 fL (80-100); Monocytes Percent Auto 13.9 % (0.0-11.0); Neutrophils Absolute Auto 5.32 K/uL (1.7-7.0); Neutrophils Percent Auto 70.3 % (42.0-72.0); Platelet Count* 204 K/uL (140-440); RDW Coefficient of Variation % 11.7 % (11.5-15.5); Red Blood Count 4.21 m/uL (4.00-5.20); White Blood Count* 7.57 K/uL (4.50-11.00)
[2022-08-07 14:34] LABS: Slide Review Reflex No; Troponin, Point-of-Care* 0.02 ng/ml (0.01-0.04)
--- OUTSIDE RECORDS SUMMARY | 2022-08-07 14:51 | XMS_ITS | Clinical Summary ---
:1940 Author Organization [facility] [place] [address] Care Team Providers Name Role Phone Yossi [...] nephrology consult. See lab note sent via Hyper[employer]. Controlled type 2 diabetes mellitus with complication, [...] 06/28/2008 02/03/2009 Routine general medical examination at [facility] 007 10/20/2014 facility Encounters Date Type Specialty [...] Refi ll Request (Oxybutinin 5mg tab ) from Last 3 Months Immunizations Name Administration [...] 161.3 cm (5' 3.5) 10/03/2021 7:51 AM PHARMACEUTICAL SCIENTIST Body Mass Index 42.96 10/03/2021 7:51 AM PHARMACEUTICAL SCIENTIST Plan of Treatment Upcoming Encounters Date Type Specialty Care Team Description 08/15/2022 Office Visit Bhumi Velez, HILARYM [address] [phone] ([place]) 10/04/2022 Office Visit Joaquina Cartwright DO [address] [phone] ([place]o [place]) Health Maintenance Due Date Last Done Comments [...] history exists Medical Devices Implanted Type Area Transit Planner Device Shelf Model / Identifier Expiration Date Ser ial / Lot Head Fem Aubrey M 36mm [id number] - [id number] Left: Hip DE PUY [id number]# / Implanted: Qty: 1 on 06/18/2008 at [facility] / [id number] Procedures Procedure Name Priority Date/Time Associated Diagnosis [...] Component Value Ref Test Analysis Performed At [facility] gist Range Method Time Signature Case Report Pathology Report ?Case: [id number] ? 07/20/2022 [facility] Authorizing Provider: ??Joshua bailey, Joaquina Loredo, DO ?Collected: ? 07/18/2022 1100 ? 12:43 PM LABORAT ORY-CE Ordering Location: ? [facility] ?? Received: ?07/18/2022 1127 ? CDT NTRAL ? Clinic ? LABORATORY Pathologist: ? Greg Hernandez MD ? Specimen: ?Right Forearm ? Final SKIN, RIGHT FOREARM, BIOPSY: 07/20/2022 [facility] Electronically Diagnosis 1. Seborrheic keratosis 12:43 PM LABORA AYE-CE signed by David, 2. Negative for malignancy CDT NTR AL Greg Bautista MD LABORATORY on 022 at 12:43 PM Clinical Right forearm 07/20/2022 [facility] Information lesion, 12:43 PM LABORATORY-CE growing and CDT NTRAL changing. LABORATORY Gross A) Received in formalin, lab eled with the patient's name and date of , is a 1.9 x 1.1 cm skin biopsy. There is a 1.4 x 0.7 x 0.3 cm granular brown-black ??lesion. The specimen is inked red, seriall 07/20/2022 [facility] Description y sectioned and entirely submitted in 2 cassettes. 12:43 PM LABORATORY-CE CDT NTRAL Alex Carballo, 07/18/2022 5:46 PM LABORATORY Microscopic The final diagnosis is based on microscopic examination of appropriate sections of all specimens. 07/20/2022 [facility] Description 12:43 PM LABORATORY-CE The epidermis shows acantho sis and hyperkeratosis. No significant atypia is seen. The presence of red ink is confirmed on tissue sections. CDT NTRAL LABORATORY Additional 07/20/2022 [facility] Information Interpreted at [facility], Central Laboratory - [address], [place] [address] 12:43 PM LABORATORY-CE CDT NTRTX LABORATORY Specimen Anatomical Collection Method Collection Time Receive d Time (Source) Location / / Volume Laterality Other (Right Non-Blood / 07/18/2022 11:00 07/18/2022 Forearm) Unknown AM CDT 11:27 AM CDT Joaquina Cartwright DO PATHOLOGY/CYTOLOGY Performing Organization Address City/[facility]/ZIP Code Phon e Number [facility] [address] [place] [address] LABORATORY-CENTRAL 2000 LABORATORY (ABNORMAL) LATISHA PREP,SKIN,HAIR,NAIL (06/19/2022 11:59 AM CDT) [facility] gist Method Time Signature OBSERVATION Fungal [facility] 12[facility]20 PM CDT SALT FLAT seen (A) CLINIC Specimen Anatomical Collection Method Collection Time Receive d Time (Source) Location / / Volume Laterality Other SPECIMEN FROM SKIN Non-Blood / 06/19/2022 11:59 06/19 OBTAINED BY Unknown AM CDT 11:59 AM CDT SCRAPING / Unknown Joaquina Cartwright DO MICROBIOLOGY Performing Organization Address City/State/ZIP Code Phon e Number [facility] [address] [place] [address] from Last 3 Months Insurance Payer Benefit Plan / Subscriber ID Effective Dates Phone Addre ss Type Group MEDICARE PART B MEDICARE PART B [id number] 2003-Presen ATTN: CLAIMS - HB USE ONLY HB ONLY t [address] [place] [address] MEDICARE PART A MEDICARE PART A [id number] 2003-Presen ATTN: CLAIMS - HB USE ONLY HB ONLY t [address] [place] [address] MEDICARE PART B MEDICARE PART B [id number] 2003-Presen ATTN: CLAIMS - HB USE ONLY HB ONLY t [address] [place] [address] MEDICARE PART A MEDICARE PART A [id number] 2003-Presen ATTN: CLAIMS - HB USE ONLY HB ONLY t [address] [place] [address] BLUE CROSS BLUE CROSS OF [id number] 2007-Presen [id number] [place] [address] BLUE CROSS MR BLUE CROSS [id number] 2016-Presen [address] [address] [place], [place] ONLY [id number] Paulette Monroe Personal/Family Self 1940 [address] ([address]) [address] [address] Advance Directives Documents on File Type Date Recorded Patient Supervisor Paper Testing Explanati on Healthcare Directive 12/19/2021 3:39 PM HEALTHCARE DIRECTIVE, 02/25/2019 Latest Code Status on File Code Status Date Activated Date Inactivated Comments Full Code 06/18/2008 10:57 AM 06/22/2008 1:52 PM Full Code 06/18/2008 9:12 AM 06/18/2008 10:57 AM Care Teams Certified Scrum Master Relationship Specialty Start Date End Date Joaquina Cartwright DO PCP - General Family Practice 11/14/[address] [place] [address] Yossi Mendez Orthopedics Surgery - Orthopedics 02/27/12 Shay Woodard MD Endocrinology 02/27/12 [address] [place] [address]
[2022-08-07 14:55] LABS: INR 1.02 (0.91-1.10)
[2022-08-07 15:15] LABS: Chloride* 103 mmol/L (96-114); Potassium* 4.5 mmol/L (3.6-5.1); Sodium* 137 mmol/L (135-149)
[2022-08-07 15:18] LABS: Blood Urea Nitrogen* 17 mg/dL (7-30); Calcium* 8.3 mg/dL (8.4-10.6); Carbon Dioxide* 24 mmol/L (20-32); Creatinine* 0.8 mg/dL (0.5-1.5); Est. Creatinine Clearance* 36.16; Estimated Glomerular Filt Rate 73 ml/min; Glucose* 125 mg/dL (60-115)
--- NOTE | 2022-08-07 15:24 | ED_ITS ---
HPI - Fall General Chief Complaint: Fall/Minor Trauma Stated Complaint: Hip pain Time Seen by Provider: 08/07/22 13:19 Source: patient Mode of arrival: EMS Limitations: no limitations History of Present Illness HPI Narrative: Patient is an 82-year-old female who lives independently in the community, brought in by EMS after she fell in the bathroom. She complains of left hip discomfort, and really inability to bear weight, although I do note that there is an abrasion the inner part of her left eye. She denies losing consciousness, does not have any chest pain or other extremity discomfort. Says that she has fallen 3 times in the more recent past. No history of blood thinners, loss of conscious, amnesia, neck or back pain. MD complaint: fall Onset (ago): minute(s) Fall from: standing Fall witnessed: no Place fall occurred: home Loss of consciousness: No Prolonged down time: no Symptoms prior to fall: none Context: tripped/slipped Location of injury: head and pelvis Severity: moderate Quality: sharp Associated symptoms (after fall): denies Related Data Home Medications Medication Instructions Recorded Confirmed atorvastatin 20 mg tablet 20 mg PO HS 07/14/22 08/07/22 bupropion HCl 150 mg 24 hr tablet, 150 mg PO QDAY 07/14/22 08/07/22 extended release irbesartan 75 mg tablet 75 mg PO DAILY 07/14/22 08/07/22 metformin 500 mg tablet 500 mg PO BID 07/14/22 08/07/22 oxybutynin chloride 5 mg tablet 5 mg PO BID 07/14/22 08/07/22 verapamil 240 mg tablet,extended 240 mg PO DAILY 07/14/22 08/07/22 release blood sugar diagnostic (Contour 08/07/22 08/07/22 Next Test Strips) clotrimazole 1 % topical cream 1 applic topical BID PRN 08/07/22 08/07/22 duloxetine 30 mg capsule,delayed 60 mg PO DAILY 08/07/22 08/07/22 release insulin glargine 100 unit/mL (3 12 unit subcut QPM 08/07/22 08/07/22 mL) subcutaneous pen Allergies Allergy/AdvReac Type Severity Reaction Status Date / Time aspirin Allergy Anaphylaxis Verified 08/07/22 13:05 Review of Systems Status of ROS: Reports: 10 or more systems reviewed and unremarkable except as noted in History and below [facility] Social History Smoking Status: Never smoker Do you use any of these nicotine containing products: None Second hand tobacco smoke exposure: No How often do you have a drink containing alcohol: never How often do you have six or more drinks on one occasion: Never AUDIT-C Alcohol total score: 0 Non-prescribed substance use: denies use Exam Narrative: Exam Narrative: Patient is an 82-year-old female brought in by EMS, complains of pain in her left hip, along with her sacral area, she was unable to stand so they brought her in, she has had a number of falls. Pupils are equal round reactive to light, GCS is 15/15, TMs are normal, neck is supple full range of motion, small abrasion is noted on the apart inner part of her left eye socket, oropharynx normal, cervical spine nontender, chest is clear heart sounds are normal, abdomen is soft and very obese, legs lower extremities show marked lymphedema bi laterally, with the scars from knee replacements, she can move her right leg, lifted up, her left leg she cannot up as well, and she grimaces in pain when I move her left laying through flexion extension internal external rotation distal pulses are normal Const: Vital Signs, click to edit/add: Vital Signs - 24 hr 08/07/22 12:50 08/07/22 14:18 08/07/22 14:30 Temperature 98.7 F Pulse Rate 97 96 Pulse Rate [Left P ulse Oximeter] 91 Respiratory Rate 20 Blood Pressure [Le ft Upper Arm] 145/84 H Pulse Oximetry 96 94 94 Oxygen Delivery Me thod Room Air Documenting provider has reviewed patient's vital signs: yes Common normals: no apparent distress Course Course Hospital Course: Patient was unable to walk further than approximately 10-15 feet, with a walker, complaining of left hip pain. During road test. from [facility] medicine, I discussed with and will see Vital Signs Vital signs: Initial Vital Signs Temperature 98.7 F 08/07/22 12:50 Temperature Source Temporal Artery Scan 08/07/22 12:50 Pulse Rate 91 08/07/22 12:50 Respiratory Rate 20 08/07/22 12:50 Blood Pressure 145/84 H 08/07/22 12:50 Blood Pressure Mean 104 08/07/22 12:50 Blood Pressure Position Semi-Fowlers 08/07/22 12:50 Pulse Oximetry 96 08/07/22 12:50 Oxygen Delivery Method 08/07/22 12:50 Vital Signs Temperature 98.7 F 08/07/22 12:50 Pulse Rate 91 08/07/22 12:50 Respiratory Rate 20 08/07/22 12:50 Blood Pressure 145/84 H 08/07/22 12:50 Pulse Oximetry 96 08/07/22 12:50 Oxygen Delivery Method 08/07/22 12:50 Temperature 98.7 F 08/07/22 12:50 Pulse Rate 96 08/07/22 14:30 Respiratory Rate 20 08/07/22 12:50 Blood Pressure 145/84 H 08/07/22 12:50 Pulse Oximetry 94 08/07/22 14:30 Oxygen Delivery Method 08/07/22 12:50 MDM - Fall MDM Narrative Medical decision making narrative: Considerations include but not limited to fracture, sprain, contusion, dislocation, vascular damage, nerve damage, ligamentous damage, tendon damage as well as other etiologies. Medical Records Attestation: I reviewed the patient's medical records. Lab Data Attestation: I reviewed the patient's lab results. Labs: Lab Results 08/07/22 08/07/22 08/07/22 Range/Units 14:20 14:20 14:20 WBC 7.57 (4.50-11.00) K/uL RBC 4.21 (4.00-5.20) m/uL Hgb 13.3 (12.0-16.0) gm/dL Hct 42.2 (33.0-51.0) % MCV 100 (80-100) fL MCH 32 (26-34) pg MCHC 32 (32-36) gm/dL RDW Coeff of Nicko 11.7 (11.5-15.5) % Plt Count 204 (140-440) K/uL Neut % (Auto) 70.3 (42.0-72.0) % Lymph % (Auto) 15.2 L (20-44) % Owsley % (Auto) 13.9 H (0.0-11.0) % Eos % (Auto) 0.4 (0.0-7.0) % Baso % (Auto) 0.1 (0.0-3.0) % Neut # (Auto) 5.32 (1.7-7.0) K/uL Lymph # (Auto) 1.20 (0.90-2.90) K/uL Owsley # (Auto) 1.10 H (0.00-0.90) K/UL Eos # (Auto) 0.03 (0.00-0.50) K/uL Baso # (Auto) 0.01 (0.00-0.30) K/uL Abs Immat Gran (auto) 0.01 (0.00-0.30) K/uL INR 1.02 (0.91-1.10) Sodium 137 (135-149) mmol/L Potassium 4.5 (3.6-5.1) mmol/L Chloride 103 (96-114) mmol/L Carbon Dioxide 24 (20-32) mmol/L BUN 17 (7-30) mg/dL Creatinine 0.8 (0.5-1.5) mg/dL Estimated Creat Clear 36.16 Estimated GFR 73 ml/min Glucose 125 H (60-115) mg/dL Calcium 8.3 L (8.4-10.6) mg/dL POC Troponin I (0.01-0.04) ng/ml 08/07/22 Range/Units 14:20 WBC (4.50-11.00) K/uL RBC (4.00-5.20) m/uL Hgb (12.0-16.0) gm/dL Hct (33.0-51.0) % MCV (80-100) fL MCH (26-34) pg MCHC (32-36) gm/dL RDW Coeff of Nicko (11.5-15.5) % Plt Count (140-440) K/uL Neut % (Auto) (42.0-72.0) % Lymph % (Auto) (20-44) % Owsley % (Auto) (0.0-11.0) % Eos % (Auto) (0.0-7.0) % Baso % (Auto) (0.0-3.0) % Neut # (Auto) (1.7-7.0) K/uL Lymph # (Auto) (0.90-2.90) K/uL Owsley # (Auto) (0.00-0.90) K/UL Eos # (Auto) (0.00-0.50) K/uL Baso # (Auto) (0.00-0.30) K/uL Abs Immat Gran (auto) (0.00-0.30) K/uL INR (0.91-1.10) Sodium (135-149) mmol/L Potassium (3.6-5.1) mmol/L Chloride (96-114) mmol/L Carbon Dioxide (20-32) mmol/L BUN (7-30) mg/dL Creatinine (0.5-1.5) mg/dL Estimated Creat Clear Estimated GFR ml/min Glucose (60-115) mg/dL Calcium (8.4-10.6) mg/dL POC Troponin I 0.02 (0.01-0.04) ng/ml ECG Data Attestation: I personally reviewed and interpreted this ECG as follows: Interpretation: Wide QRS rhythm, right bundle-branch block, no acute changes when review from previous EKG Discharge Plan Discharge Clinical Impression: Acute hip pain, Weakness, Fall Patient Disposition: Admitted As Inpatient
[2022-08-07] MEDS: ACETAMINOPHEN 500 MG TABLET 1000 MG PO (16:00)
[2022-08-07 16:32] LABS: PCR FLU A Negative PCR FLU A (Negative); PCR FLU B Negative PCR FLU B (Negative)
[2022-08-07 16:35] LABS: SARS PCR* POSITIVE SARS-CoV-2 (Negative)
--- NOTE | 2022-08-07 16:46 | PM.IMHP1 ---
Hospitalist- H&P: HPI History of Present Illness Date Seen: 08/08/22 Chief complaint: Hip pain Narrative: ADMISSION HISTORY AND PHYSICAL - HOSPITALIST Chief Complaint: I fell this morning; I'm not sure what happened HPI: 82 y/o WFPaulette, who lives alone at [address] [place] [address] woke this morning and upon waking she walked to the bathroom; fell hitting the back of her head. She did not pass out (she is pretty sure) and called out for help. A neighbor heard her calling out and the RN came in from the care center and helped her up - realizing she was weak and unsteady the RN called EMS. no signficant injury noted; no bleeding from the head; feels achy. She was at her baseline health status most of the last month. She did have an ER visit on 07/14/22 for a fall; she says that one was definitely related to some ankle pain she had been having. Ultimately in the ED: found to be Covid positive (vaccinated x 3, last was in 01/01) unsure of start of disease, today? Head CT and neck CT were unremarkable. Found to be too weak to go home; Hospital Medicine team I've updated the PFSH, medications and allergies in the [facility]se tabs. INVESTIGATIONS: LABS/MICRO/ECG/IMAGING Afebrile. Very mildly elevated blood pressures. Systolics run 143-152. Respiratory rate 16 18. Room air sats in mid 90s. Pulse 90s CBC unremarkable INR normal Chemistries are unremarkable, LFTs are pending Will add BNP, CRP. Will also had D-dimer and LDH. Pelvic XR Status post bilateral total hip arthroplasties. No evidence of fracture or loosening. No hip dislocation. Degenerative changes in the bilateral SI joints and visualized lower lumbar spine. Arcuate lines are intact. Pubic symphysis is congruent. Head CT IMPRESSION: No acute intracranial abnormality. Central greater than peripheral volume loss with associated ex vacuo dilatation of the lateral ventricles. Finding can potentially be seen in the setting of normal pressure hydrocephalus (NPH). 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 Neck CT IMPRESSION: 1. Negative for acute traumatic abnormality. 2. C4-C6 fusion, multilevel spondylosis and alordosis. REVIEW OF SYSTEMS: 12-point ROS completed with patient and negative unless otherwise stated in HPI or below. PHYSICAL EXAM: CODE STATUS: Needs addressing CONSTITUTIONAL: looks a little uncomfortable; tired appearing - forgetful and seems to lose track of my question. asking her to grab the side rails and pull herself up demonstrates she is very weak. VITAL SIGNS: see record. HEENT: Normocephalic, atraumatic. PERRL, EOMI, conjunctivae pink, no scleral icterus. Ears and nose externally normal. Pharynx normal. NECK: No JVD. No carotid bruit, no thyromegaly, no adenopathy. CHEST: Clear to auscultation bilaterally - no wheezes. HEART: S1 and S2 normal. No harsh murmurs. bilateral severe lymphedema MUSCULOSKELETAL: No gross joint deformity or swelling. NEURO: Cranial nerves intact. Grossly intact. No asymmetric findings. SKIN: No rashes, petechiae, concerning changes PSYCHIATRIC: Euthymic. ADMIT TO MEDSURG: FLOOR CARE DVT: Lovenox GI: PO intake Time spent: 70 minutes examining patient, conferring with family and patient, care staff, developing care plan [facility] Medical History At risk for falling Chronic pain CKD (chronic kidney disease) Dysthymic disorder Essential hypertension Fibromyalgia Generalized osteoarthritis GERD (gastroesophageal reflux disease) H/O paroxysmal supraventricular tachycardia Insulin dependent diabetes mellitus Lymphedema Mixed hyperlipidemia Morbid obesity BRITANY on CPAP Venous insufficiency of both lower extremities Surgical History H/O bilateral hip replacements History of bilateral knee replacement History of partial hysterectomy History of radiofrequency ablation (RFA) procedure for cardiac arrhythmia Social History (Updated 08/07/22 @ 17:17 by Yudith Narayan MD) Narrative: ; lives at [place]; Jayy (son) is POA. Highest level of school completed/degree received: high school graduate Smoking Status: Never smoker Do you use any of these nicotine containing products: None Second hand tobacco smoke exposure: No How often do you have a drink containing alcohol: never How often do you have six or more drinks on one occasion: Never AUDIT-C Alcohol total score: 0 Non-prescribed substance use: denies use Caffeine: No service: No Meds Home Medications and Allergies Home Medications Medication Instructions Recorded Confirmed Type atorvastatin 20 mg tablet 20 mg PO HS 07/14/22 08/07/22 History bupropion HCl 150 mg 24 hr tablet, 150 mg PO QDAY 07/14/22 08/07/22 History extended release irbesartan 75 mg tablet 75 mg PO DAILY 07/14/22 08/07/22 History metformin 500 mg tablet 500 mg PO BID 07/14/22 08/07/22 History oxybutynin chloride 5 mg tablet 5 mg PO BID 07/14/22 08/07/22 History verapamil 240 mg tablet,extended 240 mg PO DAILY 07/14/22 08/07/22 History release acetaminophen 500 mg tablet 1,000 mg PO Q6H PRN 08/07/22 08/07/22 History blood sugar diagnostic (Contour 08/07/22 08/07/22 History Next Test Strips) duloxetine 30 mg capsule,delayed 60 mg PO DAILY 08/07/22 08/07/22 History release epinephrine 0.3 mg/0.3 mL 0.3 ml IM DIRECTED PRN 08/07/22 08/07/22 History injection, auto-injector (EpiPen) insulin glargine 100 unit/mL (3 12 unit subcut QPM 08/07/22 08/07/22 History mL) subcutaneous pen Allergies Allergy/AdvReac Type Severity Reaction Status Date / Time aspirin Allergy Anaphylaxis Verified 08/07/22 13:05 Exam Const: Vital Signs, click to edit/add: Vital Signs - 24 hr 08/07/22 12:50 08/07/22 14:18 08/07/22 14:30 Temperature 98.7 F Pulse Rate 97 96 Pulse Rate [Left P ulse Oximeter] 91 Respiratory Rate 20 Blood Pressure [Le ft Upper Arm] 145/84 H Pulse Oximetry 96 94 94 Oxygen Delivery Me thod Room Air Hospitalist - H&P: Result Labs Labs: Short CBC 08/07/22 Range/Units 14:20 WBC 7.57 (4.50-11.00) K/uL Hgb 13.3 (12.0-16.0) gm/dL Hct 42.2 (33.0-51.0) % Plt Count 204 (140-440) K/uL BMP 08/07/22 14:20 Sodium 137 Potassium 4.5 Chloride 103 Carbon Dioxide 24 BUN 17 Creatinine 0.8 Glucose 125 H Calcium 8.3 L Assessment and Plan Assessment and plan (1) COVID-19: Problem comment: Not clear on the start of symptoms, presumably today. Should consider 3 days of IV Remdesivir secondary to her weakness and COVID fog. She would risk secondary to her multiple comorbidities for severe disease. However a risk benefit discussion should be had with her son as we are not seeing critical illness with this variant. Status: Acute (2) Weakness: Problem comment: related to #1 Status: Acute (3) Fall: Problem comment: related to #1 Status: Acute (4) AMS (altered mental status): Problem comment: related to #1 Status: Acute (5) Insulin dependent diabetes mellitus: Problem comment: SSI; A1C to lab add on Status: Acute (6) Essential hypertension: Problem comment: continue home meds cautiously Status: Acute (7) CKD (chronic kidney disease): Status: Acute (8) BRITANY on CPAP: Status: Acute (9) Morbid obesity: Status: Acute (10) GERD (gastroesophageal reflux disease): Status: Acute (11) Dysthymic disorder: Status: Acute (12) Chronic pain: Status: Acute (13) At risk for falling: Status: Acute (14) Lymphedema: Status: Acute (15) Generalized osteoarthritis: Status: Acute
--- NOTE | 2022-08-07 17:03 | W.PC.EDHO ---
Primary Language: Preferred Language: Orientation Status: [] Alert & Oriented [] Slight Confusion [] Known Dx Dementia Transfers By: [] Assist of 1 [] Assist of 2 [] Lift Active Medications Generic Name Dose Route Start Last Admin Trade Name Shabana PRN Reason Stop Dose Admin Acetaminophen 1,000 mg 08/07/22 16:54 08/07/22 16:00 Acetaminophen 500 Mg Tablet PO 08/07/22 16:55 1,000 mg ONCE ONE Administration Description of Symptoms ED Triage Present Problem Fell this morning. Thinks her walker slipped. Pt Description unsure of when she fell and how long she was on the ground for. Pt made a lot of noise and yelled for help from her neighbors. [facility] Initially c/o of left hip pain, has hx pf left hip pain, but stated this was different. Is a diabetic, BS 160. Takes insulin at night. EMS gave fentanyl for pain. ED Triage Date of Onset of 08/07/22 Symptoms Female History Patient Burton Coma Scale Burton coma scale total score 14 Pain Pain Description [Buttock] Dull, Achy Pain Description [Buttock] Dull, Achy Pain Intensity [Buttock] 2 Pain Intensity [Buttock] 2 Pain Intensity 2 Pain Scale Used [Buttock] Numeric (1 - 10) Pain Scale Used [Buttock] Numeric (1 - 10) Pain Scale Used Numeric (1 - 10) IV Insertion/Site Date of IV Line Insertion [ 08/07/22 Left] Oxygen Administration Pulse Oximetry 94 Pulse Oximetry 94 Pulse Oximetry 96 Oxygen Delivery Method Room Air Cardiac Monitoring EKG Method Bedside
[2022-08-07 17:59] LABS: D Dimer Quantitative* 0.56 ug/ml (0.00-0.50)
[2022-08-07 18:04] LABS: Hemoglobin A1C* 7.09 % (0-5.6)
[2022-08-07 18:52] LABS: Albumin* 4.3 g/dL (3.3-5.0)
[2022-08-07 18:55] LABS: Alanine Aminotransferase* 20 U/L (4-35); Alkaline Phosphatase* 77 U/L (40-150); Aspartate Amino Transferase* 54 U/L (12-35); Bilirubin Direct* 0.1 mg/dL (0.0-0.5); Bilirubin Total* 0.4 mg/dL (0.1-1.5); Lactate Dehydrogenase* 688 U/L (313-618); Total Protein* 7.1 g/dL (6.0-8.3)
[2022-08-07 19:00] LABS: C Reactive Protein* < 0.5 mg/dL (0.5-1.0)
--- NOTE | 2022-08-07 19:02 | PC.NURSE ---
ADMIT TO M/S FLOOR AT 1600. COVID POSITIVE. HERE D/T WEAKNESS AND FALL IN HOME HURTING LEFT HIP. PAIN REPORTED 2/10. TYLENOL GIVEN IN ED. PT UP WITH AXJennifer, VIC WAY TO [facility] TO VOID CLEAR YELLOW URINE. PT 02 STABLE DURING ASSESSMENT AT 97% RA. CONTINUOUS PULSE OX MONITORING IN PLACE. PT REPORTS SLIFHT CONFUSION/BRAIN FOG, OTHERWISE ABLE TO RECALL RECENT AND PAST EVENTS. TELE PLACED. BG AT ADMISSION 151.
[2022-08-07 19:04] LABS: NT Pro B Type NatriureticPept* 518 PG/mL (0-450)
[2022-08-07] MEDS: ATORVASTATIN 10 MG TABLET 20 MG PO (21:33)
[2022-08-07] MEDS: OXYBUTYNIN CHLORIDE 5 MG TABLET PO (21:34)
[2022-08-07] MEDS: SODIUM CHLORIDE 0.9 % (FLUSH) 10 ML SYRINGE IVF (21:42)
[2022-08-07] MEDS: 0.9 % SODIUM CHLORIDE 250 ml IV (22:23)
[2022-08-07] MEDS: ACETAMINOPHEN 325 MG TABLET PO (22:23)
[2022-08-08] VITALS (11 sets, daily range): BP systolic 106–161; BP diastolic 65–100; PULSE 76–106; RESP 20; TEMP 36.6–36.9; O2SAT 93–96
--- NOTE | 2022-08-08 06:47 | PC.NURSE ---
23-07: pleasant and cooperative. Calls appropriately. A x 1 with gb and walker to [facility], urge incontinence requiring brief changes. 1 Lg BM. VSS. Afebrile. Tele = first degree AV block. CPAP on when sleeping.
[2022-08-08] MEDS: buPROPion XL 150 MG TABLET PO (09:28)
[2022-08-08] MEDS: DULOXETINE 30 MG CAPSULE DR 60 MG PO (09:28)
[2022-08-08] MEDS: OXYBUTYNIN CHLORIDE 5 MG TABLET PO ×2 (09:28→21:03)
[2022-08-08] MEDS: SODIUM CHLORIDE 0.9 % (FLUSH) 10 ML SYRINGE IVF ×3 (09:29→22:02)
[2022-08-08] MEDS: VERAPAMIL HCL 240 MG ER TABLET PO (10:26)
[2022-08-08] MEDS: IRBESARTAN 150 MG TABLET 75 MG PO (10:27)
--- NOTE | 2022-08-08 12:35 | P.IMPN_ITS ---
Progress Note: A&P Assessment and plan (1) COVID-19: Problem details: We assume 08/07 as the start of her illness. We started Remdesivir yesterday. We will continue for a 3 day regimen. Likely she will be able to return to her apartment with some short-term home health verses working on placement for long- term assisted living. Status: Acute (2) Weakness: Problem details: related to #1 Status: Acute (3) Fall: Problem details: related to #1 Status: Acute (4) AMS (altered mental status): Problem details: related to #1 Status: Acute (5) Insulin dependent diabetes mellitus: Problem details: A1c 7.0. Blood glucose 151, 143, 149, 142. No supplemental insulin needed. Status: Acute (6) Essential hypertension: Problem details: continue home meds cautiously Status: Acute (7) CKD (chronic kidney disease): Status: Acute (8) BRITANY on CPAP: Status: Acute (9) Morbid obesity: Status: Acute (10) GERD (gastroesophageal reflux disease): Status: Acute (11) Dysthymic disorder: Status: Acute (12) Chronic pain: Status: Acute (13) At risk for falling: Status: Acute (14) Lymphedema: Status: Acute (15) Generalized osteoarthritis: Status: Acute Subjective Date Seen: 08/08/22 Interval history: Daily Progress Note - Hospital Medicine Day #: 2 COVID positive 08/07, 1st day of symptoms 08/07. CC: Weakness, confusion OVERNIGHT UPDATES FROM STAFF & MED, LAB, IMAGING UPDATES Paulette looks much brighter and alert today. She now can remember being down in the bathroom and using the bathroom shelving unit to make noise in order to get help. She specifically remembers thinking her true nevi knock over this shower racquet should make enough noise and someone should call for help. She has remained afebrile, normal vital signs, on room air. Nursing reports that she was able to use her walker and move slowly around the side of the bed. And she has eaten breakfast. No new labs were drawn this morning. Review of Systems: See subjective Cardiac: No new chest pain/pressure/palpitations. Respiratory: no new dyspnea. GI: No abdominal bloating Objective: Alert, sitting in her chair, eating breakfast Vitals: Reviewed and unremarkable i.e. remarkable for how normal they appear see above Lungs: Clear. Cardiac: S1S2. Disposition/Potential discharge - Likely to return to previous living situation with some short-term assistance verses long-term assisted living placement. Total time is 35 minutes with greater than 50% spent in counseling and coordination of care. Exam Const: Vital Signs, click to edit/add: Vital Signs - 24 hr 08/07/22 12:50 08/07/22 14:18 08/07/22 14:30 Temperature 98.7 F Pulse Rate 97 96 Pulse Rate [Left P ulse Oximeter] 91 Pulse Rate [orthos tatic lying] Pulse Rate [orthos tatic sitting] Pulse Rate [orthos tatic standing] Respiratory Rate 20 Blood Pressure [Le ft Upper Arm] 145/84 H Blood Pressure [Ri ght Arm] Blood Pressure [or thostatic lying] Blood Pressure [or thostatic sitting] Blood Pressure [or thostatic standing ] Pulse Oximetry 96 94 94 Oxygen Delivery Me thod Room Air Oxygen Flow Rate 08/07/22 18:11 08/07/22 18:30 08/07/22 18:30 Temperature 99.1 F Pulse Rate Pulse Rate [Left P ulse Oximeter] 97 Pulse Rate [orthos tatic lying] Pulse Rate [orthos tatic sitting] Pulse Rate [orthos tatic standing] Respiratory Rate 20 20 Blood Pressure [Le ft Upper Arm] Blood Pressure [Ri ght Arm] 133/80 Blood Pressure [or thostatic lying] Blood Pressure [or thostatic sitting] Blood Pressure [or thostatic standing ] Pulse Oximetry 97 97 97 Oxygen Delivery Me thod Room Air Room Air Oxygen Flow Rate 0 0 08/07/22 18:30 08/07/22 17:48 08/07/22 19:46 Temperature 98.8 F 98.8 F Pulse Rate Pulse Rate [Left P ulse Oximeter] 97 88 Pulse Rate [orthos tatic lying] Pulse Rate [orthos tatic sitting] Pulse Rate [orthos tatic standing] Respiratory Rate 22 20 20 Blood Pressure [Le ft Upper Arm] 109/68 Blood Pressure [Ri ght Arm] 124/76 Blood Pressure [or thostatic lying] Blood Pressure [or thostatic sitting] Blood Pressure [or thostatic standing ] Pulse Oximetry 97 99 95 Oxygen Delivery Me thod Room Air Room Air Room Air Oxygen Flow Rate 08/07/22 20:59 08/07/22 23:00 08/07/22 23:00 Temperature 98.1 F Pulse Rate Pulse Rate [Left P ulse Oximeter] 89 89 Pulse Rate [orthos tatic lying] Pulse Rate [orthos tatic sitting] Pulse Rate [orthos tatic standing] Respiratory Rate 18 20 Blood Pressure [Le ft Upper Arm] Blood Pressure [Ri ght Arm] 143/88 H Blood Pressure [or thostatic lying] Blood Pressure [or thostatic sitting] Blood Pressure [or thostatic standing ] Pulse Oximetry 95 94 Oxygen Delivery Me thod Room Air Oxygen Flow Rate 08/07/22 23:00 08/08/22 02:25 08/08/22 04:26 Temperature 97.9 F Pulse Rate 76 Pulse Rate [Left P ulse Oximeter] 82 Pulse Rate [orthos tatic lying] Pulse Rate [orthos tatic sitting] Pulse Rate [orthos tatic standing] Respiratory Rate 20 Blood Pressure [Le ft Upper Arm] Blood Pressure [Ri ght Arm] 153/98 H Blood Pressure [or thostatic lying] Blood Pressure [or thostatic sitting] Blood Pressure [or thostatic standing ] Pulse Oximetry 96 96 Oxygen Delivery Me thod Room Air Oxygen Flow Rate 08/08/22 06:00 08/08/22 07:00 08/08/22 07:00 Temperature 98.1 F Pulse Rate Pulse Rate [Left P ulse Oximeter] 91 Pulse Rate [orthos tatic lying] 89 Pulse Rate [orthos tatic sitting] 96 Pulse Rate [orthos tatic standing] 106 H Respiratory Rate 20 20 Blood Pressure [Le ft Upper Arm] Blood Pressure [Ri ght Arm] 152/89 H Blood Pressure [or thostatic lying] 161/98 H Blood Pressure [or thostatic sitting] 139/100 H Blood Pressure [or thostatic standing ] 118/70 Pulse Oximetry 93 Oxygen Delivery Me thod Room Air Oxygen Flow Rate 08/08/22 11:00 Temperature 98.5 F Pulse Rate Pulse Rate [Left P ulse Oximeter] 90 Pulse Rate [orthos tatic lying] Pulse Rate [orthos tatic sitting] Pulse Rate [orthos tatic standing] Respiratory Rate 20 Blood Pressure [Le ft Upper Arm] Blood Pressure [Ri ght Arm] 127/69 Blood Pressure [or thostatic lying] Blood Pressure [or thostatic sitting] Blood Pressure [or thostatic standing ] Pulse Oximetry 94 Oxygen Delivery Me thod Room Air High Flow Nasal Cannula Oxygen Flow Rate 0 Labs Labs: Laboratory Results - last 24 hr 08/07/22 08/07/22 08/07/22 14:20 14:20 14:20 WBC 7.57 RBC 4.21 Hgb 13.3 Hct 42.2 MCV 100 MCH 32 MCHC 32 RDW Coeff of Nicko 11.7 Plt Count 204 Neut % (Auto) 70.3 Lymph % (Auto) 15.2 L Gibson % (Auto) 13.9 H Eos % (Auto) 0.4 Baso % (Auto) 0.1 Neut # (Auto) 5.32 Lymph # (Auto) 1.20 Gibson # (Auto) 1.10 H Eos # (Auto) 0.03 Baso # (Auto) 0.01 Abs Immat Gran (auto) 0.01 INR 1.02 D-Dimer Quant (PE/DVT) 0.56 H Sodium 137 Potassium 4.5 Chloride 103 Carbon Dioxide 24 BUN 17 Creatinine 0.8 Estimated Creat Clear 36.16 Estimated GFR 73 Glucose 125 H Hemoglobin A1c Calcium 8.3 L Total Bilirubin 0.4 Direct Bilirubin 0.1 AST 54 H ALT 20 Alkaline Phosphatase 77 Lactate Dehydrogenase 688 H C-Reactive Protein < 0.5 L NT-Pro-B Natriuret Pep 518 H Total Protein 7.1 Albumin 4.3 SARS-CoV-2 (PCR) Influenza Type A (PCR) Influenza Type B (PCR) POC Troponin I 08/07/22 08/07/22 08/07/22 14:20 14:20 14:20 WBC RBC Hgb Hct MCV MCH MCHC RDW Coeff of Nicko Plt Count Neut % (Auto) Lymph % (Auto) Gibson % (Auto) Eos % (Auto) Baso % (Auto) Neut # (Auto) Lymph # (Auto) Gibson # (Auto) Eos # (Auto) Baso # (Auto) Abs Immat Gran (auto) INR D-Dimer Quant (PE/DVT) Sodium Potassium Chloride Carbon Dioxide BUN Creatinine Estimated Creat Clear Estimated GFR Glucose Hemoglobin A1c 7.09 H Calcium Total Bilirubin Cancelled Direct Bilirubin Cancelled AST Cancelled ALT Cancelled Alkaline Phosphatase Cancelled Lactate Dehydrogenase C-Reactive Protein NT-Pro-B Natriuret Pep Total Protein Cancelled Albumin Cancelled SARS-CoV-2 (PCR) Influenza Type A (PCR) Influenza Type B (PCR) POC Troponin I 0.02 08/07/22 15:27 WBC RBC Hgb Hct MCV MCH MCHC RDW Coeff of Nicko Plt Count Neut % (Auto) Lymph % (Auto) Gibson % (Auto) Eos % (Auto) Baso % (Auto) Neut # (Auto) Lymph # (Auto) Gibson # (Auto) Eos # (Auto) Baso # (Auto) Abs Immat Gran (auto) INR D-Dimer Quant (PE/DVT) Sodium Potassium Chloride Carbon Dioxide BUN Creatinine Estimated Creat Clear Estimated GFR Glucose Hemoglobin A1c Calcium Total Bilirubin Direct Bilirubin AST ALT Alkaline Phosphatase Lactate Dehydrogenase C-Reactive Protein NT-Pro-B Natriuret Pep Total Protein Albumin SARS-CoV-2 (PCR) POSITIVE SARS-CoV-2 A Influenza Type A (PCR) Negative PCR FLU A Influenza Type B (PCR) Negative PCR FLU B POC Troponin I
--- NOTE | 2022-08-08 13:23 | PC.SOCIAL ---
Discharge plan: CAlled son, Jayy, regarding d/c plans. Jayy states he and family have noticed pt is having more memory issues and they think she would benefit from assisted living facility. Son as already contacted [facility] and would like asssistance contacting [facility] assisted living to get pt on their waiting list. Son is not expecting pt to go directly into assisted living from this hospital stay and states they have people coming into her home to assist at this time and that pt can return to her apartment at discharge if appropriate. Called [facility] and requested pt be put on waiting list. rescue worker, Janie, will call son to discuss this option. rescue worker to follow up as needed.
[2022-08-08] MEDS: 0.9 % SODIUM CHLORIDE 250 ml IV ×2 (19:26→21:49)
--- NOTE | 2022-08-08 20:09 | PC.NURSE ---
Pt is using 4 wheel walker and SBA within room to ambulate between bed, BR, and chair. RA all day, personal CPAP w/o O2 while sleeping. Denies need for medication for random aches and pains. Reid BENTLEY edema +4 chronic, states she has used lymphedema treatments in past, isn't currently using due to be such a trouble.
[2022-08-08] MEDS: ATORVASTATIN 10 MG TABLET 20 MG PO (21:02)
[2022-08-08] MEDS: guaiFENesin 100 MG/ML CUP PO (22:32)
--- NOTE | 2022-08-08 23:53 | PC.NURSE ---
Nurse Care Hours: [id number] Pt this shift calm and cooperative. Up to bathroom with SB assist and 4WW. Loose stool x2 in toilet. Flame Hardener encouraged pt to eat some yogurt for breakfast for probiotics. Pt states loose stools are common after greasy food. Oral cares done, face washed, and gown changed. No c/o pain. Stable on room air. Moist cough non productive, LS coarse crackles throughout. Robitussin given PRN per pt request. 1 unit insulin given at 2100 for BS 163. cardiac rhythm NSR with 1 degree block. IV in L hand was hitting against wall when ambulating. Some leaking noted. After 20min, flushed and patent, IV fluids running, no concern. Hand protected by stretchy covering. CPAP on NOC.
[2022-08-09] VITALS (12 sets, daily range): BP systolic 112–146; BP diastolic 61–111; PULSE 66–97; RESP 20; TEMP 36.2–36.9; O2SAT 93–97
[2022-08-09 07:06] LABS: HCO3 VBG 29 mmol/L (21-28); Ionized Calcium* 1.12 mmol/L (1.11-1.30); PCO2 VBG 50 mmHG (40-50); PO2 VBG 51.1 mmHG (25-47); pH VBG 7.368 (7.32-7.43)
[2022-08-09 07:17] LABS: Hematocrit 39.7 % (33.0-51.0); Hemoglobin* 12.5 gm/dL (12.0-16.0); Mean Corpuscular HGB Conc 32 gm/dL (32-36); Mean Corpuscular Hemoglobin 32 pg (26-34); Mean Corpuscular Volume 101 fL (80-100); Platelet Count* 191 K/uL (140-440); Red Blood Count 3.94 m/uL (4.00-5.20); White Blood Count* 5.01 K/uL (4.50-11.00)
[2022-08-09 07:25] LABS: Slide Review Reflex No
--- NOTE | 2022-08-09 07:27 | PC.NURSE ---
[id number]: Patient pleasant and cooperative. Denies pain. SBA w/4ww. A&Ox3. O2 sats >90% on RA. Uses CPAP during noc. Afebrile. Patient reports feeling clearer than the previous day.
[2022-08-09 07:33] LABS: Chloride* 106 mmol/L (96-114); Sodium* 139 mmol/L (135-149)
[2022-08-09 07:36] LABS: Blood Urea Nitrogen* 23 mg/dL (7-30); Carbon Dioxide* 26 mmol/L (20-32); Creatinine* 0.9 mg/dL (0.5-1.5); Est. Creatinine Clearance* 36.16; Estimated Glomerular Filt Rate 63 ml/min
[2022-08-09 07:37] LABS: Calcium* 8.4 mg/dL (8.4-10.6); Glucose* 118 mg/dL (60-115); Magnesium* 1.6 mg/dL (1.5-2.6)
[2022-08-09 07:49] LABS: Potassium* 4.3 mmol/L (3.6-5.1)
[2022-08-09 07:54] LABS: NT Pro B Type NatriureticPept* 131 PG/mL (0-450)
[2022-08-09] MEDS: OXYBUTYNIN CHLORIDE 5 MG TABLET PO ×2 (08:16→21:10)
[2022-08-09] MEDS: VERAPAMIL HCL 240 MG ER TABLET PO (08:17)
[2022-08-09] MEDS: buPROPion XL 150 MG TABLET PO (08:17)
[2022-08-09] MEDS: IRBESARTAN 150 MG TABLET 75 MG PO (08:17)
[2022-08-09] MEDS: DULOXETINE 30 MG CAPSULE DR 60 MG PO (08:17)
[2022-08-09] MEDS: SODIUM CHLORIDE 0.9 % (FLUSH) 10 ML SYRINGE IVF ×2 (08:18→21:17)
--- NOTE | 2022-08-09 11:53 | P.IMPN_ITS ---
Progress Note: A&P Assessment and plan (1) COVID-19: Problem details: Clinically improved. At high risk for complicated and severe COVID. We assume 08/07 as the start of her illness. We started Remdesivir yesterday. We will continue for a 3 day regimen. Likely she will be able to return to her apartment with some short-term home health verses working on placement for long- term assisted living. Status: Acute (2) Fall: Problem details: related to #1. PT and OT to assess mobility with walker inability to return home Status: Acute (3) Weakness: Problem details: related to #1. PT and OT to assess ability to manage ADLs at home Status: Acute (4) AMS (altered mental status): Problem details: related to #1. Improved Status: Acute (5) Morbid obesity: Status: Acute (6) BRITANY on CPAP: Status: Acute (7) Lymphedema: Problem details: Patient declines support hose Status: Acute (8) Diabetes mellitus: Problem details: Adequate blood sugar control Status: Acute Plan Continue in hospital until safe discharge plan can be established. Patient is approaching getting back to baseline. If she can manage ADLs with her walker I think she can be discharged to home for outpatient recovery. Time Spent With Patient Total time spent: Total time spent today is 40 minutes, 30 minutes in course care discussing with patient other providers ongoing management of disability and COVID infection. Subjective Date Seen: 08/09/22 Interval history: 82-year-old female seen in followup of hospitalization with COVID infection. On the day of admission she fell and hit her head. She subsequently has had some report of brain fog probably related to COVID. Today she reports feeling better. She feels stronger. She feels like mentally she is sharper. She has began to get up and move with her walker and repeat it is that is getting better as well. Exam Narrative: Exam Narrative: She is alert and appears in no distress. She is able to give significant detail s of her history, social circumstances and ability to provide her own self-care. Respirations are clear to auscultation without wheezing rales or rhonchi. Cardiovascular: S1, S2, regular rate and rhythm. Abdomen is soft without tenderness or mass. Extremities with bilateral 3+ edema. Const: Vital Signs, click to edit/add: Vital Signs - 24 hr 08/08/22 12:00 08/08/22 15:00 08/08/22 15:00 Temperature 98.5 F Pulse Rate Pulse Rate [Left P ulse Oximeter] 76 76 Pulse Rate [orthos tatic lying] Pulse Rate [orthos tatic sitting] Pulse Rate [orthos tatic standing] Respiratory Rate 20 20 Blood Pressure [Le ft Arm] Blood Pressure [Ri ght Arm] 114/65 Blood Pressure [or thostatic lying] Blood Pressure [or thostatic sitting] Blood Pressure [or thostatic standing ] Pulse Oximetry 93 96 Oxygen Delivery Me thod Room Air Oxygen Flow Rate 08/08/22 15:00 08/08/22 19:00 08/08/22 20:00 Temperature 98.4 F Pulse Rate 84 Pulse Rate [Left P ulse Oximeter] 80 Pulse Rate [orthos tatic lying] Pulse Rate [orthos tatic sitting] Pulse Rate [orthos tatic standing] Respiratory Rate Blood Pressure [Le ft Arm] 132/67 Blood Pressure [Ri ght Arm] Blood Pressure [or thostatic lying] Blood Pressure [or thostatic sitting] Blood Pressure [or thostatic standing ] Pulse Oximetry 93 93 Oxygen Delivery Me thod Room Air Oxygen Flow Rate 08/08/22 23:49 08/08/22 23:49 08/08/22 23:00 Temperature 98.4 F Pulse Rate 79 Pulse Rate [Left P ulse Oximeter] 80 84 Pulse Rate [orthos tatic lying] Pulse Rate [orthos tatic sitting] Pulse Rate [orthos tatic standing] Respiratory Rate 20 20 Blood Pressure [Le ft Arm] 106/68 Blood Pressure [Ri ght Arm] 114/65 Blood Pressure [or thostatic lying] Blood Pressure [or thostatic sitting] Blood Pressure [or thostatic standing ] Pulse Oximetry 96 Oxygen Delivery Me thod Room Air Oxygen Flow Rate 08/09/22 02:13 08/09/22 04:00 08/09/22 06:00 Temperature Pulse Rate 85 Pulse Rate [Left P ulse Oximeter] Pulse Rate [orthos tatic lying] 83 Pulse Rate [orthos tatic sitting] 88 Pulse Rate [orthos tatic standing] 90 Respiratory Rate Blood Pressure [Le ft Arm] Blood Pressure [Ri ght Arm] Blood Pressure [or thostatic lying] 140/111 H Blood Pressure [or thostatic sitting] 124/72 Blood Pressure [or thostatic standing ] 121/70 Pulse Oximetry 95 Oxygen Delivery Me thod Oxygen Flow Rate 08/09/22 03:00 08/09/22 07:00 08/09/22 07:00 Temperature 98.4 F 97.1 F L Pulse Rate 78 Pulse Rate [Left P ulse Oximeter] 88 80 Pulse Rate [orthos tatic lying] Pulse Rate [orthos tatic sitting] Pulse Rate [orthos tatic standing] Respiratory Rate 20 20 Blood Pressure [Le ft Arm] 124/72 146/76 H Blood Pressure [Ri ght Arm] Blood Pressure [or thostatic lying] Blood Pressure [or thostatic sitting] Blood Pressure [or thostatic standing ] Pulse Oximetry 93 94 Oxygen Delivery Me thod Room Air Room Air Oxygen Flow Rate 0 08/09/22 07:00 Temperature Pulse Rate Pulse Rate [Left P ulse Oximeter] 80 Pulse Rate [orthos tatic lying] Pulse Rate [orthos tatic sitting] Pulse Rate [orthos tatic standing] Respiratory Rate Blood Pressure [Le ft Arm] Blood Pressure [Ri ght Arm] Blood Pressure [or thostatic lying] Blood Pressure [or thostatic sitting] Blood Pressure [or thostatic standing ] Pulse Oximetry Oxygen Delivery Me thod Oxygen Flow Rate Documenting provider has reviewed patient's vital signs: yes Labs Labs: Laboratory Results - last 24 hr 08/09/22 08/09/22 08/09/22 06:30 06:30 06:30 WBC 5.01 RBC 3.94 L Hgb 12.5 Hct 39.7 MCV 101 H MCH 32 MCHC 32 Plt Count 191 VBG pH 7.368 VBG pCO2 50 VBG pO2 51.1 H VBG HCO3 29 H Sodium 139 Potassium 4.3 Chloride 106 Carbon Dioxide 26 BUN 23 Creatinine 0.9 Estimated Creat Clear 36.16 Estimated GFR 63 Glucose 118 H Calcium 8.4 Ionized Calcium Alicia 1.12 Magnesium 1.6 NT-Pro-B Natriuret Pep 131
--- NOTE | 2022-08-09 20:34 | PC.NURSE ---
Pt up with SBA and 4 wheel walker within room. Continues on room air during wake hours and CPAP during sleep hours. Denies N/V.
[2022-08-09] MEDS: ACETAMINOPHEN 325 MG TABLET PO (21:08)
[2022-08-09] MEDS: ATORVASTATIN 10 MG TABLET 20 MG PO (21:09)
[2022-08-10] VITALS (8 sets, daily range): BP systolic 119–137; BP diastolic 79–83; PULSE 77–87; RESP 16–20; TEMP 36.4–36.6; O2SAT 94–99
--- NOTE | 2022-08-10 05:11 | PC.NURSE ---
Shift note: Pt's condition is stable. No fever, cough, diarrhea and headache observed. Pt denied pain and v/s WNL. No fall attempt noted. Assist of 1 with walker and GB. CPAP on at night.
[2022-08-10] MEDS: IRBESARTAN 150 MG TABLET 75 MG PO (09:18)
[2022-08-10] MEDS: DULOXETINE 30 MG CAPSULE DR 60 MG PO (09:18)
[2022-08-10] MEDS: OXYBUTYNIN CHLORIDE 5 MG TABLET PO (09:18)
[2022-08-10] MEDS: VERAPAMIL HCL 240 MG ER TABLET PO (09:19)
[2022-08-10] MEDS: buPROPion XL 150 MG TABLET PO (09:19)
[2022-08-10] MEDS: SODIUM CHLORIDE 0.9 % (FLUSH) 10 ML SYRINGE IVF (09:21)
--- NOTE | 2022-08-10 14:02 | PM.DS1 ---
DS: Providers Provider Time Seen by Provider: 12:15 Date Seen: 08/10/22 Date of admission: 08/07/22 16:59 Primary care physician: Joaquina Cartwright DO Admitting Clinician: Yudith Narayan MD Consults: 08/07/22 18:26 Consult to Occupational Therapy [CONS] Routine Comment: Reason(s) for OT Consult:: Evaluate and Treat Difficulty Managing ADLs Any Restrictions?:: No Restrictions Comment: COVID POSITIVE Consult to Physical Therapy [CONS] Routine Comment: Reason(s) for PT Consult:: Evaluate and Treat Recent Falls Any Restrictions?:: No Restrictions 08/07/22 18:30 Consult to Occupational Therapy [CONS] Routine Comment: Reason(s) for OT Consult:: Evaluate and Treat Any Restrictions?:: No Restrictions Consult to Physical Therapy [CONS] Routine Comment: Reason(s) for PT Consult:: Evaluate and Treat Any Restrictions?:: No Restrictions Consult to [facility] [CONS] Routine Comment: Reason for Consult:: Social Service Consult Attending Physician on discharge: Melissa Mejía MD Date of Discharge: 08/10/22 DS: Diagnosis Discharge Diagnosis (1) COVID-19: Status: Acute Problem details: Clinically improved. We assume 08/07 as the start of her illness. Completed 3 days of Remdesivir. (2) AMS (altered mental status): Status: Acute Problem details: related to #1. Resolved (3) Weakness: Status: Acute Problem details: related to #1. (4) Fall: Status: Acute Problem details: related to #1. (5) CKD (chronic kidney disease): Status: Chronic (6) Essential hypertension: Status: Chronic (7) Insulin dependent diabetes mellitus: Status: Chronic Problem details: A1c 7.0. DS: Summary Hospital Course Hospital Course: Marina is an 82-year-old female who lives alone at [address] [facility] [address] and fell upon walking to the bathroom 1st thing in the morning. As far she knows, she did not pass out. A neighbor heard her calling and then are and came and helped her get. She was still weak and unsteady so the RN called EMS. She was found to be positive for COVID. Head CT and neck CT were unremarkable. She was too weak to go home. She was admitted to the hospital and started on a 3 day course of Remdesivir. She remained afebrile and not need supplemental oxygen. At home her son assists with meals, shopping, transportation and setting up her meds in a pillbox. She has an alarm to alert her when to take the medications. They have been [place] [facility] for her; this started prior to her recent fall and need for hospitalization. Her [place] was 24/30 during this hospitalization. She reported brain fog from COVID. With a current level of care that she already is getting at her apartment, she is safe to return there today. I will order a home safety evaluation and her son can continue to assist her in finding a assisted living. She would benefit from further cognitive assessment when no longer having brain fog from COVID. Time Spent with Patient Time attestation: Total time spent providing and/or coordinating discharge services: Exam Narrative: Exam Narrative: General: No acute distress. Awake, alert, oriented x3. No pallor. No jaundice. Oropharynx: Clear. Mucous membranes moist. Cardiovascular: Regular rate and rhythm. No murmurs, gallops, or rubs. Respiratory: Clear to auscultation bilaterally. No wheezes or crackles. Abdomen: Bowel sounds present. Soft, nondistended, nontender. Extremities: 3+ bilateral pedal edema. Const: Vital Signs, click to edit/add: Vital Signs - 24 hr 08/09/22 15:00 08/09/22 15:00 08/09/22 19:00 Temperature 97.2 F L 98.5 F Pulse Rate 66 Pulse Rate [Left P ulse Oximeter] 97 85 Respiratory Rate 20 20 Blood Pressure [Le ft Arm] 112/61 114/68 Pulse Oximetry 97 94 Oxygen Delivery Me thod Room Air Room Air Oxygen Flow Rate 0 08/09/22 23:55 08/09/22 23:55 08/09/22 23:00 Temperature 98 F Pulse Rate 70 Pulse Rate [Left P ulse Oximeter] 81 Respiratory Rate 20 20 Blood Pressure [Le ft Arm] 121/75 Pulse Oximetry 94 Oxygen Delivery Me thod CPAP Oxygen Flow Rate 0 08/09/22 20:00 08/10/22 01:20 08/10/22 03:00 Temperature 97.6 F Pulse Rate Pulse Rate [Left P ulse Oximeter] 77 Respiratory Rate 20 20 Blood Pressure [Le ft Arm] 137/83 Pulse Oximetry 94 94 97 Oxygen Delivery Me thod Room Air Room Air Oxygen Flow Rate 0 08/10/22 04:00 08/10/22 07:58 08/10/22 11:34 Temperature 98 F 97.5 F L Pulse Rate Pulse Rate [Left P ulse Oximeter] 83 87 Respiratory Rate 16 18 Blood Pressure [Le ft Arm] 121/79 119/82 Pulse Oximetry 97 99 97 Oxygen Delivery Me thod Room Air Room Air Oxygen Flow Rate 08/10/22 12:15 08/10/22 12:45 Temperature Pulse Rate 80 Pulse Rate [Left P ulse Oximeter] Respiratory Rate Blood Pressure [Le ft Arm] Pulse Oximetry 97 Oxygen Delivery Me thod Oxygen Flow Rate Documenting provider has reviewed patient's vital signs: yes DS: Data Data Completed and Pending Completed studies during hospitalization: Ordering Physician: Chalino Zimmerman M.D. Date of Service: 08/07/22 Procedure(s): CT cervical spine wo con Accession Number(s): [id number] cc: Chalino Zimmerman M.D.; Joaquina Cartwright D.O.~ For Patients: As a result of the Cures Act, medical imaging exams and procedure reports are released immediately into your electronic medical record. You may view this report before your referring provider. If you have questions, please contact your health care provider. INDICATION: Neck injury. Fell. TECHNIQUE: Volumetric helical scanning of the cervical spine was performed without contrast material. Sagittal and coronal reconstructions were also obtained. COMPARISON: None. FINDINGS: No fracture, traumatic subluxation or prevertebral soft tissue swelling is demonstrated. Multilevel spondylosis is demonstrated. C4, C5 and C6 are fused. The cervical spine is alordotic. IMPRESSION: 1. Negative for acute traumatic abnormality. 2. C4-C6 fusion, multilevel spondylosis and alordosis. Please note that all CT scans at this facility use dose modulation, iterative reconstruction, and/or weight-based dosing when appropriate to reduce radiation dose to as low as reasonably achievable. Dictated by Franck Jones MD @ 08/07/2022 2:33:10 PM (Electronically Signed) Ordering Physician: Chalino Zimmerman M.D. Date of Service: 08/07/22 Procedure(s): CT head/brain wo con Accession Number(s): [id number] cc: Chalino Zimmerman M.D.; Joaquina Cartwright D.O.~ For Patients: As a result of the Cures Act, medical imaging exams and procedure reports are released immediately into your electronic medical record. You may view this report before your referring provider. If you have questions, please contact your health care provider. INDICATION: FALL TECHNIQUE: Head CT without contrast. COMPARISON: CT head November 23, 2018 FINDINGS: CSF spaces: Within normal limits for age. Brain parenchyma and extra-axial spaces: There are nonspecific moderate low attenuation white matter changes consistent with chronic microvascular disease. No sign of intracranial hemorrhage, or midline shift. Central greater than peripheral volume loss with associated ex vacuo dilatation of the lateral ventricles. Stable left cerebellar encephalomalacia. Skull base and calvarium: The visualized paranasal sinuses and mastoid air cells demonstrate no acute or significant findings. The visualized orbits are grossly unremarkable. No skull fractures. Vascular calcifications. IMPRESSION: No acute intracranial abnormality. Central greater than peripheral volume loss with associated ex vacuo dilatation of the lateral ventricles. Finding can potentially be seen in the setting of normal pressure hydrocephalus (NPH). 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 Please note that all CT scans at this facility use dose modulation, iterative reconstruction, and/or weight-based dosing when appropriate to reduce radiation dose to as low as reasonably achievable. Dictated by Jesús Stevenson MD @ 08/07/2022 2:05:47 PM (Electronically Signed) Ordering Physician: Chalino Zimmerman M.D. Date of Service: 08/07/22 Procedure(s): XR hip LT min 2V Accession Number(s): [id number] cc: Chalino Zimmerman M.D.; Joaquina Cartwright D.O.~ For Patients: As a result of the Cures Act, medical imaging exams and procedure reports are released immediately into your electronic medical record. You may view this report before your referring provider. If you have questions, please contact your health care provider. Indication: Fall. Technique: Three views. Comparison: 09/08/2018. Findings/Impression: Status post bilateral total hip arthroplasties. No evidence of fracture or loosening. No hip dislocation. Degenerative changes in the bilateral SI joints and visualized lower lumbar spine. Arcuate lines are intact. Pubic symphysis is congruent. Dictated by Wild Avila MD @ 08/07/2022 2:24:57 PM (Electronically Signed) 08/07/2022 1:42 p.m. EKG: Wide QRS rhythm, 94 beats per minute, left axis deviation, right bundle-branch block, inferior infarct, age undetermined. Discharge Plan Discharge Disposition: Home, Self-Care Date of Admission: 08/07/22 16:59 Attending Provider on Discharge: Melissa Mejía Primary Care Provider: Joaquina Cartwright Condition: Improved Anticipated Discharge Date/Time: 08/10/22 14:27 Discharge Medications: Continued metformin 500 mg tablet 500 mg PO BID Label Comments: TAKE ONE TABLET BY MOUTH TWICE DAILY WITH MEALS atorvastatin 20 mg tablet 20 mg PO HS Label Comments: TAKE ONE TABLET BY MOUTH ONE TIME DAILY AT BEDTIME irbesartan 75 mg tablet 75 mg PO DAILY Label Comments: TAKE ONE TABLET BY MOUTH ONE TIME DAILY verapamil 240 mg tablet extended release 240 mg PO DAILY Label Comments: TAKE ONE TABLET BY MOUTH ONE TIME DAILY with a meal oxybutynin chloride 5 mg tablet 5 mg PO BID Label Comments: TAKE ONE TABLET BY MOUTH TWICE DAILY bupropion HCl 150 mg tablet extended release 24 hr 150 mg PO QDAY Label Comments: TAKE ONE TABLET BY MOUTH EVERY DAY IN THE MORNING. duloxetine 30 mg capsule,delayed release(DR/EC) 60 mg PO DAILY Label Comments: TAKE TWO CAPSULES BY MOUTH DAILY (DME) Contour Next Test Strips Strip MISCELLANEOUS Label Comments: USE TO TEST BLOOD SUGARS ONCE DAILY acetaminophen 500 mg tablet 1,000 mg PO Q6H PRN epinephrine [EpiPen] 0.3 mg/0.3 mL auto-injector 0.3 ml IM DIRECTED PRN Rx Instructions: do not exceed 3 doses per episode Changed insulin glargine 100 unit/mL (3 mL) insulin pen 7 unit subcut QPM Qty: 15 0RF Discharge Orders: Discharge Order (Routine); Ordered 08/10/22 Ordered By: Melissa Mejía Patient Education: COVID-19 (Coronavirus Disease 2019) (DC) Additional Instructions: Cognitive testing when no longer having brain fog from acute covid. Home safety evaluation. Activity Level: Activity as Tolerated and Use Walker Discharge Diet: Diabetic Follow Up Appointments: Joaquina Cartwright, [Primary Care Provider] - (1-2 weeks) Forms: [facility]
--- NOTE | 2022-08-10 14:38 | PC.NURSE ---
Shift Summary: patient pleasant and cooperative. Up with SBA, walker and gait belt. Denies pain or SOB. Continues to maintain o2 sats >90% on RA. Tolerating regular diet. Alert and oriented, using call light appropriately.
--- NOTE | 2022-08-10 14:53 | PC.SOCIAL ---
Discharge planning: Spoke with sonJayy by phone. Jayy agrees with plan for discharge home today and will provide assistance as needed with meals. Son is concerned about others being exposed to pt due to COVID so states he will be the only family member stopping by to assist pt at home as needed and that he can do this. Son agrees with MD recommendation for home safety eval. Son will continue to look into plans for future placement at [facility] when pt needs a higher level of care and was not interested in resources on other facilities. Son will pick pt up at discharge and take her to her apartment. No further social work needs identified.
--- NOTE | 2022-08-10 16:45 | PC.NURSE ---
Discharge. shift note [id number]. Pt. alert and oriented. IV removed intact. Patient belongings list reviewed and signed by patient. Pt. used wheelchair to son waiting in car. Pt. was discharged at 1630.
== END 2022-08-10 16:30 | disposition home or self-care (01) ==
LOC: ED 15:39 → MEDSURG 16:59
PROVIDERS: Admitting Provider Family Medicine; Emergency Provider Family Medicine; PCP Family Medicine; Visit Provider Family Medicine
DX: U07.1 COVID-19 (principal); R53.1 Weakness; R41.82 Altered mental status, unspecified; M25.552 Pain in left hip; W19.XXXA Unspecified fall, initial encounter; I12.9 Hypertensive chronic kidney disease with stage 1 through stage 4 chronic kidney disease, or unspecified chronic kidney disease; E11.22 Type 2 diabetes mellitus with diabetic chronic kidney disease; N18.9 Chronic kidney disease, unspecified; Z79.4 Long term (current) use of insulin; Z79.84 Long term (current) use of oral hypoglycemic drugs; Z91.81 History of falling; I89.0 Lymphedema, not elsewhere classified; R26.89 Other abnormalities of gait and mobility; S00.81XA Abrasion of other part of head, initial encounter; Z96.653 Presence of artificial knee joint, bilateral; M79.7 Fibromyalgia; G47.33 Obstructive sleep apnea (adult) (pediatric); Z99.89 Dependence on other enabling machines and devices; E66.01 Morbid (severe) obesity due to excess calories; Z68.41 Body mass index [BMI] 40.0-44.9, adult; K21.9 Gastro-esophageal reflux disease without esophagitis; F34.1 Dysthymic disorder; G89.29 Other chronic pain; M15.9 Polyosteoarthritis, unspecified; Z90.711 Acquired absence of uterus with remaining cervical stump
CPT/HCPCS: 36415; 70450; 72125; 73502; 80048; 80076; 82330; 82803; 82947; 82962; 83036; 83615; 83735; 83880; 85025; 85027; 85379; 85610; 86140; 87631; 93005; 94761; 96365; 96366; 96372; 97112; 97116; 97161; 97165; 97535; 99284; 99285; G0378; A9270; G0379; J7050

== ENCOUNTER 2022-08-17 13:20 | Outpatient (RCR) | payer MEDICARE, BC, SELFPAY | END 2023-05-02 23:59 | disposition home or self-care (01) | PROVIDERS: PCP Family Medicine; Visit Provider Family Medicine | DX: R53.1 Weakness (principal); Z86.16 Personal history of COVID-19; Z51.89 Encounter for other specified aftercare | CPT/HCPCS: 97165; 97535 ==

== ENCOUNTER 2022-09-24 22:33 | Outpatient (CLI) | payer MEDICARE, BC, SELFPAY | END 2022-09-24 22:34 | disposition home or self-care (01) | LOC: AMB 10-04 18:56 | PROVIDERS: PCP Family Medicine; Visit Provider Internal Medicine | DX: S09.90XA Unspecified injury of head, initial encounter (principal); W18.30XA Fall on same level, unspecified, initial encounter; Y92.032 Bedroom in apartment as the place of occurrence of the external cause | CPT/HCPCS: A0425; A0429 ==

== ENCOUNTER 2022-09-24 23:06 | Emergency (ER) | payer MEDICARE, BC, SELFPAY ==
[2022-09-24 23:13] VITALS: BP 124/66; PULSE 89; RESP 18; TEMP 36.6; O2SAT 96
--- NOTE | 2022-09-24 23:17 | CRLHL7_ITS ---
For Patients: As a result of the Century Cures Act, medical imaging exams and procedure reports are released immediately into your electronic medical record. You may view this report before your referring provider. If you have questions, please contact your health care provider. INDICATION: Status post fall, striking the back of the head. Headache and neck tenderness. COMPARISON: CT of the head from 08/07/2022. TECHNIQUE: CT examination of the head was performed with 3 mm thick axial and 2 mm thick coronal and sagittal sections without intravenous contrast. Images were obtained from the vertex of the skull through the skull base, and I examined the images with the brain and bone windows. Please note that all CT scans at this facility use dose modulation, iterative reconstruction, and/or weight-based dosing when appropriate to reduce radiation dose to as low as reasonably achievable. FINDINGS: Again seen is the large old infarction of the inferior left cerebellar hemisphere, occupying the majority of the left PICA territory. There is stable moderate dilatation of the ventricles and mild to moderate dilatation of the sulci. This could represent either normal pressure hydrocephalus or moderate, age-appropriate central atrophy. There is stable moderate periventricular and subcortical white matter hypodensity representing age-appropriate small vessel ischemia. Again seen are multiple old lacunar infarcts distributed throughout the external capsules bilaterally, throughout the anterior and posterior limbs of the internal capsule on the left and throughout the internal capsule on the right. The brain is otherwise normal in appearance for the patient`s age on today`s study, with no sign of mass lesion, mass effect, hemorrhage, or edema. The visualized portions of the orbits are normal in appearance. The visualized paranasal sinuses and mastoids are clear. The osseous structures are normal in their appearance with no sign of abnormality in the skull base or calvarium. IMPRESSION: No sign of acute injury to the brain, with no sign of closed head injury. Stable moderate dilatation of the ventricles, more prominent than dilatation of the sulci, moderate, age-appropriate central atrophy versus normal pressure hydrocephalus. 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 Stable moderate, age-appropriate small-vessel ischemic change with stable appearance of multiple old lacunar infarcts. Please note that all CT scans at this facility use dose modulation, iterative reconstruction, and/or weight-based dosing when appropriate to reduce radiation dose to as low as reasonably achievable. Dictated by Jordan Galicia MD @ 09/24/2022 11:49:29 PM (Electronically Signed)
--- NOTE | 2022-09-24 23:18 | CRLHL7_ITS ---
For Patients: As a result of the Century Cures Act, medical imaging exams and procedure reports are released immediately into your electronic medical record. You may view this report before your referring provider. If you have questions, please contact your health care provider. INDICATION: Status post fall, striking the back of the head on the floor. Neck tenderness. COMPARISON: CT of the cervical spine from 08/07/2022 TECHNIQUE: CT examination of the cervical spine is performed without contrast using spiral technique. 1.5 mm thick axial, sagittal and coronal reconstructions were made. Please note that all CT scans at this facility use dose modulation, iterative reconstruction, and/or weight-based dosing when appropriate to reduce radiation dose to as low as reasonably achievable. FINDINGS: : There is stable appearance of fusion from C4 through C6 in anatomic alignment. The C5-6 disc space is nearly completely absent. There is partial absence of the anterior C4-5 disc space. The left C4-5 and both the C5-6 facet joints are fused. There is no sign of fracture or subluxation. The cervical vertebral bodies are normal in height and are in anatomic alignment. There is no sign of prevertebral soft tissue swelling. There is no change in moderate C6-7 disc degenerative disease with moderate loss of disc height. Again seen is mild diffuse disc bulging with posterior osteophytic ridging which may impinge upon the anterior cervical cord but do not appear to be prominent enough to result in spinal stenosis. Again seen is mild left foraminal stenosis from uncovertebral joint hypertrophy. There is no change in prominent anterior lateral osteophytic ridging at C6-7 and C7-T1. The airway structures are normal in appearance. The visualized skull base is normal in appearance. The visualized inferior brain is normal in appearance for the patient`s age. The apices of the lungs are clear. IMPRESSION: No sign of acute osseous injury to the cervical spine. Stable satisfactory appearance status post fusion from C4 through C6 in anatomic alignment. Stable moderate C6-7 disc degenerative disease. Please note that all CT scans at this facility use dose modulation, iterative reconstruction, and/or weight-based dosing when appropriate to reduce radiation dose to as low as reasonably achievable. Dictated by Jordan Galicia MD @ 09/24/2022 11:54:32 PM (Electronically Signed)
--- NOTE | 2022-09-24 23:34 | ED_ITS ---
HPI - Fall General Chief Complaint: Fall/Minor Trauma Stated Complaint: fall Time Seen by Provider: 09/24/22 23:09 History of Present Illness HPI Narrative: Pt is an 82 year old woman who lives independently who fell backwords after tripping in her apartment while getting ready for bed. Pt has no lacerations or skin tears. She appears to have struck her occiput. Pt had no LOC and was able to call for help. Pt his not on anticoagulants and has had a GCS of 15 since arrival. She has no other pain. Pt has full use of all extremities and has no other signs of injury. Pt has not fallen recently but her medical records does list that she is at risk of falling. Pt arrives by ambulance but is able to ambulate. Pt states that she has otherwise been feeling fine. Related Data Home Medications Medication Instructions Recorded Confirmed atorvastatin 20 mg tablet 20 mg PO HS 07/14/22 08/07/22 bupropion HCl 150 mg 24 hr tablet, 150 mg PO QDAY 07/14/22 08/07/22 extended release irbesartan 75 mg tablet 75 mg PO DAILY 07/14/22 08/07/22 metformin 500 mg tablet 500 mg PO BID 07/14/22 08/07/22 oxybutynin chloride 5 mg tablet 5 mg PO BID 07/14/22 08/07/22 verapamil 240 mg tablet,extended 240 mg PO DAILY 07/14/22 08/07/22 release acetaminophen 500 mg tablet 1,000 mg PO Q6H PRN 08/07/22 08/07/22 blood sugar diagnostic (Contour 08/07/22 08/07/22 Next Test Strips) duloxetine 30 mg capsule,delayed 60 mg PO DAILY 08/07/22 08/07/22 release epinephrine 0.3 mg/0.3 mL 0.3 ml IM DIRECTED PRN 08/07/22 08/07/22 injection, auto-injector (EpiPen) Previous Rx's Medication Instructions Recorded insulin glargine 100 unit/mL (3 7 unit (0.07 mL) subcut QPM #15 mL 08/10/22 mL) subcutaneous pen Allergies Allergy/AdvReac Type Severity Reaction Status Date / Time aspirin Allergy Anaphylaxis Verified 08/07/22 13:05 Review of Systems Status of ROS: Reports: 10 or more systems reviewed and unremarkable except as noted in History and below PFSH FORMERLY [facility] Medical History At risk for falling Chronic pain CKD (chronic kidney disease) Diabetes mellitus Dysthymic disorder Essential hypertension Fall Fibromyalgia Generalized osteoarthritis GERD (gastroesophageal reflux disease) H/O paroxysmal supraventricular tachycardia Insulin dependent diabetes mellitus Lymphedema Mixed hyperlipidemia Morbid obesity BRITANY on CPAP Venous insufficiency of both lower extremities Surgical History H/O bilateral hip replacements History of bilateral knee replacement History of partial hysterectomy History of radiofrequency ablation (RFA) procedure for cardiac arrhythmia Social History Narrative: ; lives at [place]; Jayy (son) is POA. Highest level of school completed/degree received: high school graduate Smoking Status: Never smoker Do you use any of these nicotine containing products: None Second hand tobacco smoke exposure: No How often do you have a drink containing alcohol: never How often do you have six or more drinks on one occasion: Never AUDIT-C Alcohol total score: 0 Non-prescribed substance use: denies use Caffeine: No service: No Exam Narrative: Exam Narrative: EXAM GENERAL: Patient appears comfortable and well. Obese and elderly. Head normocephalic no signs of trauma. EYES: No scleral icterus. ENT: Tympanic membranes and oropharynx normal. THYROID: no thyroid nodules or thyromegaly. LYMPH: No supraclavicular or cervical lymphadenopathy. SKIN: Visible skin seen during exam normal or with benign process only. EXT: No dependent lower extremity pedal edema. HEART: Regular rate and rhythm with no murmurs, rubs, or gallops. LUNGS: Clear to auscultation bilaterally with no crackles or wheezes. ABD: Soft, non tender, non distended. PSYCH: Good eye contact, speech is not pressured. Back exam unremarkable Neuro: CN 2-12 intact. No focal defects. GCS 15 no defects. Const: Vital Signs, click to edit/add: Vital Signs - 24 hr 09/24/22 23:13 Temperature 97.8 F Pulse Rate [Left P ulse Oximeter] 89 Respiratory Rate 18 Blood Pressure [Le ft Upper Arm] 124/66 Pulse Oximetry 96 Oxygen Delivery Me thod Room Air Course Course Hospital Course: Pt seen and examined. Pt sent for CT of the head and neck. Reevaluation(s) Reevaluation #1: Head and neck CT negative for acute injuries on my and radiology's review. Pt EKG shows rate of 93 with incomplete right bundle upon my review. Labs including CBC, BMP reviewed by me and are stable. Time: 00:20 Vital Signs Vital signs: Initial Vital Signs Temperature 97.8 F 09/24/22 23:13 Temperature Source Temporal Artery Scan 09/24/22 23:13 Pulse Rate 89 09/24/22 23:13 Respiratory Rate 18 09/24/22 23:13 Blood Pressure 124/66 09/24/22 23:13 Blood Pressure Mean 85 09/24/22 23:13 Blood Pressure Position Sitting 09/24/22 23:13 Pulse Oximetry 96 09/24/22 23:13 Oxygen Delivery Method 09/24/22 23:13 Vital Signs Temperature 97.8 F 09/24/22 23:13 Pulse Rate 89 09/24/22 23:13 Respiratory Rate 18 09/24/22 23:13 Blood Pressure 124/66 09/24/22 23:13 Pulse Oximetry 96 09/24/22 23:13 Oxygen Delivery Method 09/24/22 23:13 Temperature 97.8 F 09/24/22 23:13 Pulse Rate 89 09/24/22 23:13 Respiratory Rate 18 09/24/22 23:13 Blood Pressure 124/66 09/24/22 23:13 Pulse Oximetry 96 09/24/22 23:13 Oxygen Delivery Method 09/24/22 23:13 MDM - Fall MDM Narrative Medical decision making narrative: Pt is a 82 year old woman who lives alone who fell at home hitting her head. She is not on anticoagulation. Pt had CT of head and neck which were negative for acute injuries. Remainder of workup unremarkable. Pt up and does not appear to be orthostatic. Pt at baseline ambulating without difficulty. Differential Diagnosis Differential diagnosis: Likely syncope, compression fracture, concussion with loss of consciousness and concussion without loss of consciousness Medical Records Attestation: I reviewed the patient's medical records. Lab Data Labs: Lab Results 09/25/22 Range/Units 00:00 WBC 10.16 (4.50-11.00) K/uL RBC 3.82 L (4.00-5.20) m/uL Hgb 12.3 (12.0-16.0) gm/dL Hct 38.1 (33.0-51.0) % MCV 100 (80-100) fL MCH 32 (26-34) pg MCHC 32 (32-36) gm/dL RDW Coeff of Nicko 11.8 (11.5-15.5) % Plt Count 222 (140-440) K/uL Neut % (Auto) 65.2 (42.0-72.0) % Lymph % (Auto) 23.2 (20-44) % Pierce % (Auto) 9.3 (0.0-11.0) % Eos % (Auto) 2.0 (0.0-7.0) % Baso % (Auto) 0.2 (0.0-3.0) % Neut # (Auto) 6.63 (1.7-7.0) K/uL Lymph # (Auto) 2.36 (0.90-2.90) K/uL Pierce # (Auto) 0.90 (0.00-0.90) K/UL Eos # (Auto) 0.20 (0.00-0.50) K/uL Baso # (Auto) 0.02 (0.00-0.30) K/uL Abs Immat Gran (auto) 0.01 (0.00-0.30) K/uL Imm/Tot Granulo (auto) 0.1 % Discharge Plan Discharge Clinical Impression: Fall Patient Disposition: Home, Self-Care Condition: Stable Instructions: Fall Prevention for Older Adults (ED) Additional Instructions: Resume previous medications Follow up with your doctor as needed Activity Level: No Restrictions Discharge Diet: Regular Prescriptions: No Action metformin 500 mg tablet 500 mg PO BID Label Comments: TAKE ONE TABLET BY MOUTH TWICE DAILY WITH MEALS atorvastatin 20 mg tablet 20 mg PO HS Label Comments: TAKE ONE TABLET BY MOUTH ONE TIME DAILY AT BEDTIME irbesartan 75 mg tablet 75 mg PO DAILY Label Comments: TAKE ONE TABLET BY MOUTH ONE TIME DAILY verapamil 240 mg tablet extended release 240 mg PO DAILY Label Comments: TAKE ONE TABLET BY MOUTH ONE TIME DAILY with a meal oxybutynin chloride 5 mg tablet 5 mg PO BID Label Comments: TAKE ONE TABLET BY MOUTH TWICE DAILY bupropion HCl 150 mg tablet extended release 24 hr 150 mg PO QDAY Label Comments: TAKE ONE TABLET BY MOUTH EVERY DAY IN THE MORNING. duloxetine 30 mg capsule,delayed release(DR/EC) 60 mg PO DAILY Label Comments: TAKE TWO CAPSULES BY MOUTH DAILY (DME) Contour Next Test Strips Strip MISCELLANEOUS Label Comments: USE TO TEST BLOOD SUGARS ONCE DAILY acetaminophen 500 mg tablet 1,000 mg PO Q6H PRN epinephrine [EpiPen] 0.3 mg/0.3 mL auto-injector 0.3 ml IM DIRECTED PRN Rx Instructions: do not exceed 3 doses per episode insulin glargine 100 unit/mL (3 mL) insulin pen 7 unit subcut QPM Qty: 15 0RF Follow Up/Referrals: Joaquina Cartwright DO [Primary Care Provider] - Stand Alone Forms: MyHealth Info Instructions
--- OUTSIDE RECORDS SUMMARY | 2022-09-24 23:40 | XMS_ITS | Clinical Summary ---
:1940 Author Organization [facility] [place] [address] Care Team Providers Name Role Phone Yossi [...] (HC) CPAPIndications: CPAP machine for 1 Device 11 11/10/2019 Active Obstructive sleep home use at [...] Strip) stripIndications: Diabetes mellitus without complication (HC) diclofenac [...] nephrology consult. See lab note sent via [email or web address]. Controlled type 2 diabetes mellitus with complication, [...] 06/28/2008 02/03/2009 Routine general medical examination at [facility] 007 10/20/2014 facility Encounters Date Type Specialty Care Team Description 09/18/2022 Office Visit Rudy Velez DPM Con sult (Bilateral foot ) 09/18/2022 Travel 08/22/2022 Office Visit Bailey Staley MD Hospita l F/U ([facility] COVID-19, alter ed mental status); Medica tion List Update (D/c ins ulin) 08/22/2022 Travel 08/16/2022 Telephone Rudy Velez DPM Que stions 08/07/2022 Orders Only Scanner 1 scan: (1-Ord) [facility] CERVICAL SPI NE WO, 08/07/2022 08/06/2022 Orders Only Scanner 1 scan: (1-Ord) GEOVANNY, XR HIP LT MIN 2 V, 08/06/2022 07/18/2022 Office Visit Joaquina Cartwright, DO Derm Problem (Spot on right arm/); Ankle Pa in/problem 07/18/2022 Travel 07/14/2022 Orders Only Scanner 1 scan: (1-Ord) GEOVANNY, XR ANKLE LT MIN 3V, 07/14/2022 from Last 3 Months Immunizations Name Administration [...] Tobacco Use Types Packs/Day Years Used Date Smoking Tobacco: Never Smokeless Tobacco: Never Tobacco Cessation: Counseling Given: Yes Alcohol Use [...] more drinks on one Never 02/25/2019 occasion? 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 Height 161.3 cm (5' 3.5) 10/03/2021 7:51 AM 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 Body Mass Index 42.95 10/03/2021 7:51 AM 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 Plan of Treatment Upcoming Encounters Date Type Specialty Care Team Description 10/04/2022 Office Visit Joaquina Cartwright, DO [address] [place], [place] [address] (Wo rk) Health Maintenance Due Date Last Done Comments Tetanus booster 03/18/2018 03/18/2008 (Declined) COVID-19 vaccine series (4 - 11/23/2021 09/28/2021, 021, Booster for Moderna series) 11/28/2020 BMI (ht and wt on same day) for 10/03/2022 10/03/2021, 12/0 11/2019, age 18+ 09/03/2019, Additional history exists [...] history exists Medical Devices Implanted 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 Scanner OTHER SCAN-RADIOLOGY REPORT (08/06/2022 12:00 AM CDT)Only the most recent of2 results within the time period is included. Anatomical Region Laterality Modality Other Narrative This result has an attachment that is no t available. Scanner OTHER PATH TISSUE EXAM (07/18/2022 11:00 AM CDT) Component Value Ref Test Analysis Performed At [facility] gist Range Method Time Signature Case Report Pathology Report ?Case: [id number] ? 07/20/2022 [facility] Authorizing Provider: ??Joaquina Ramos DO ?Collected: ? 07/18/2022 1100 ? 12:43 PM LABORAT ORY-CE Ordering Location: ? [facility] ?? Received: ?07/18/2022 1127 ? CDT NTRAL ? Clinic ? LABORATORY Pathologist: ? Greg Hernandez MD ? Specimen: ?Right Forearm ? Final SKIN, RIGHT FOREARM, BIOPSY: [facility] 1. Seborrheic keratosis 12:43 PM LABORA TORY-CE signed by David, 2. Negative for malignancy CDT NTR AL Greg Bautista MD LABORATORY on 022 at 12:43 PM Clinical Right forearm 07/20/2022 [facility] Information lesion, 12:43 PM LABORATORY-CE growing and CDT NTRAL changing. LABORATORY Gross A) Received in formalin, lab eled with the patient's name and date of , is a 1.9 x 1.1 cm skin biopsy. There is a 1.4 x 0.7 x 0.3 cm granular brown-black ??lesion. The specimen is inked red, seriall 07/20/2022 [facility] Description y sectioned and entirely submitted in 2 cassettes. 12:43 PM LABORATORY-CE CDT NTRAL Alex Carballo, 07/18/2022 5:46 PM LABORATORY Microscopic The final diagnosis is based on microscopic examination of appropriate sections of all specimens. 07/20/2022 HI Cswitch Description 12:43 PM LABORATORY-CE The epidermis shows acantho sis and hyperkeratosis. No significant atypia is seen. The presence of red ink is confirmed on tissue sections. CDT NTRAL LABORATORY Additional 07/20/2022 [facility] Information Interpreted at [facility], [facility] Laboratory - [address], [place] [address] 12:43 PM LABORATORY-CE CDT NTRAL LABORATORY Specimen Anatomical Collection Method Collection Time Receive d Time (Source) Location / / Volume Laterality Other (Right Non-Blood / 07/18/2022 11:00 07/18/2022 Forearm) Unknown AM CDT 11:27 AM CDT Joaquina Cartwright DO PATHOLOGY/CYTOLOGY Performing Organization Address City/State/ZIP Code Phon e Number [facility] [address] [place] [address] LABORATORY-CENTRAL 2000 LABORATORY from Last 3 Months Insurance Payer Benefit Plan / Subscriber ID Effective Dates Phone Addre ss Type Group MEDICARE PART B MEDICARE PART B [id number] 2003-Presen ATTN: CLAIMS - HB USE ONLY HB ONLY t [address] [place] [address] MEDICARE PART A MEDICARE PART A [id number] 2003-Presen ATTN: CLAIMS - HB USE ONLY HB ONLY t [address] [place] [address] MEDICARE PART B MEDICARE PART B [id number] 2003-Presen ATTN: CLAIMS - HB USE ONLY HB ONLY t [address] [place] [address] MEDICARE PART A MEDICARE PART A [id number] 2003-Presen ATTN: CLAIMS - HB USE ONLY HB ONLY t [address] [place] [address] BLUE CROSS BLUE CROSS OF [id number] 2007-Presen [id number] [place], [place] [address] BLUE CROSS MR BLUE CROSS [id number] 2016-Presen [address] [address] [place] t [place], [place] ONLY [id number] Paulette Monroe Personal/Family Self 1940 [address] (Home) [address] [phone] Advance Directives Documents on File Type Date Recorded 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 on Healthcare Directive 12/19/2021 3:39 PM HEALTHCARE DIRECTIVE, 02/25/2019 Latest Code Status on File Code Status Date Activated Date Inactivated Comments Full Code 06/18/2008 10:57 AM 06/22/2008 1:52 PM Code Status History Code Status Date Activated Date Inactivated Comments Full Code 06/18/2008 9:12 AM 06/18/2008 10:57 AM Care Teams 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
[2022-09-25] VITALS: BP 128/71; PULSE 89; RESP 20; O2SAT 96
[2022-09-25 00:06] LABS: Basophils Absolute Auto 0.02 K/uL (0.00-0.30); Basophils Percent Auto 0.2 % (0.0-3.0); Hematocrit 38.1 % (33.0-51.0); Hemoglobin* 12.3 gm/dL (12.0-16.0); Immature Granulocytes Abs Auto 0.01 K/uL (0.00-0.30); Immature Granulocytes Pct Auto 0.1 %; Lymphocytes Absolute Auto 2.36 K/uL (0.90-2.90); Lymphocytes Percent Auto 23.2 % (20-44); Mean Corpuscular HGB Conc 32 gm/dL (32-36); Mean Corpuscular Hemoglobin 32 pg (26-34); Mean Corpuscular Volume 100 fL (80-100); Monocytes Percent Auto 9.3 % (0.0-11.0); Neutrophils Absolute Auto 6.63 K/uL (1.7-7.0); Neutrophils Percent Auto 65.2 % (42.0-72.0); Platelet Count* 222 K/uL (140-440); RDW Coefficient of Variation % 11.8 % (11.5-15.5); Red Blood Count 3.82 m/uL (4.00-5.20); White Blood Count* 10.16 K/uL (4.50-11.00)
[2022-09-25 00:09] LABS: Slide Review Reflex No
[2022-09-25 00:28] LABS: Chloride* 108 mmol/L (96-114); Potassium* 4.1 mmol/L (3.6-5.1); Sodium* 141 mmol/L (135-149)
[2022-09-25 00:31] LABS: Blood Urea Nitrogen* 26 mg/dL (7-30); Carbon Dioxide* 24 mmol/L (20-32); Creatinine* 0.9 mg/dL (0.5-1.5); Estimated Glomerular Filt Rate 63 ml/min; Glucose* 123 mg/dL (60-115)
[2022-09-25 00:32] LABS: Calcium* 8.9 mg/dL (8.4-10.6)
[2022-09-25] MEDS: ACETAMINOPHEN 500 MG TABLET 1000 MG PO (00:45)
== END 2022-09-25 01:00 | disposition home or self-care (01) ==
PROVIDERS: Emergency Provider Internal Medicine; PCP Family Medicine
DX: S09.90XA Unspecified injury of head, initial encounter (principal); W01.0XXA Fall on same level from slipping, tripping and stumbling without subsequent striking against object, initial encounter
CPT/HCPCS: 36415; 70450; 72125; 80048; 85025; 93005; 99283; 99285; A9270

== ENCOUNTER 2022-11-15 10:46 | Outpatient (CLI) | payer MEDICARE, BC, SELFPAY | END 2022-11-15 10:47 | disposition home or self-care (01) | LOC: AMB 18:06 | PROVIDERS: PCP Family Medicine; Visit Provider Internal Medicine | DX: M54.50 Low back pain, unspecified (principal) | CPT/HCPCS: A0998 ==

== ENCOUNTER 2022-12-11 14:28 | Outpatient (CLI) | payer MEDICARE, BC, SELFPAY | END 2022-12-11 14:29 | disposition home or self-care (01) | LOC: AMB 12-13 12:01 | PROVIDERS: PCP Family Medicine; Visit Provider Emergency Medicine | DX: R53.1 Weakness (principal) | CPT/HCPCS: A0998 ==

== ENCOUNTER 2022-12-26 23:25 | Outpatient (CLI) | payer MEDICARE, BC, SELFPAY | END 2022-12-26 23:26 | disposition home or self-care (01) | LOC: AMB 12-27 03:52 | PROVIDERS: PCP Family Medicine; Visit Provider Family Medicine | DX: S09.90XA Unspecified injury of head, initial encounter (principal); W19.XXXA Unspecified fall, initial encounter; Y92.009 Unspecified place in unspecified non-institutional (private) residence as the place of occurrence of the external cause | CPT/HCPCS: A0425; A0427 ==

== ENCOUNTER 2022-12-27 00:03 | Inpatient (IN) | payer MEDICARE, BC, SELFPAY ==
[2022-12-27] VITALS (34 sets, daily range): BP systolic 116–196; BP diastolic 55–121; PULSE 67–106; RESP 16–22; TEMP 36.6–36.9; O2SAT 93–99; BMI 35.4; BMI 42.8
--- NOTE | 2022-12-27 00:15 | CRLHL7_ITS ---
For Patients: As a result of the Century Cures Act, medical imaging exams and procedure reports are released immediately into your electronic medical record. You may view this report before your referring provider. If you have questions, please contact your health care provider. INDICATION: fall CT HEAD WITHOUT CONTRAST TECHNIQUE: Multiple axial CT images were performed through the head without intravenous contrast administration. COMPARISON: 09/24/2022 CT head. FINDINGS: No acute intracranial hemorrhage is identified. No extra-axial collections are evident and there is no mass effect or midline shift. There is mild diffuse age-related brain atrophy. Ventricular size and configuration are within normal limits for the patient`s age. A chronic infarct is again seen in the left cerebellum. There is patchy hypodensity in the periventricular white matter, a nonspecific finding which most likely reflects chronic small vessel ischemic change. Intracranial atherosclerotic vascular calcifications are noted. Small scalp laceration is noted over the left forehead. Osseous structures are within normal limits and no fractures are seen. Included portions of the paranasal sinuses and mastoid air cells are normally aerated. IMPRESSION: 1. No acute intracranial abnormality identified. 2. Small scalp laceration over the left forehead. No fracture is seen. 3. Mild age-related brain atrophy, white matter hypodensity consistent with chronic small vessel ischemic change, chronic left cerebellar infarct, and intracranial atherosclerotic vascular calcifications. DESHAWN LOPEZ MD [facility] Dictated by Omer Lopez MD @ 12/27/2022 2:16:31 AM Please note that all CT scans at this facility use dose modulation, iterative reconstruction, and/or weight-based dosing when appropriate to reduce radiation dose to as low as reasonably achievable. Dictated by: Omer Lopez MD @ 12/27/2022 02:16:48 (Electronically Signed)
--- NOTE | 2022-12-27 00:15 | CRLHL7_ITS ---
For Patients: As a result of the Century Cures Act, medical imaging exams and procedure reports are released immediately into your electronic medical record. You may view this report before your referring provider. If you have questions, please contact your health care provider. Indication: Fall bilateral hip pain Technique: AP hip centered pelvic film Comparison: 08/07/2022 Findings: Bilateral hip replacement hardware intact. No loosening or dislocation. Impression: No sign of acute injury. Dictated by Shon Pittman MD @ 12/27/2022 11:06:45 AM (Electronically Signed)
--- NOTE | 2022-12-27 00:15 | CRLHL7_ITS ---
For Patients: As a result of the Cures Act, medical imaging exams and procedure reports are released immediately into your electronic medical record. You may view this report before your referring provider. If you have questions, please contact your health care provider. Indication: Fall Technique: Chest 1 view Comparison: December 04, 2016 Findings/Impression: Stable cardiac size. Low lung volumes accentuate the pulmonary vascular markings. Possible atelectasis/effusion,/infiltrate in the left costophrenic angle. No pneumothorax. Mild dextroscoliosis. Mild degenerative changes in left glenohumeral joint. S/p reverse right shoulder arthroplasty Dictated by Vita York MD @ 12/27/2022 1:18:39 AM (Electronically Signed)
--- NOTE | 2022-12-27 00:25 | CRLHL7_ITS ---
For Patients: As a result of the Cures Act, medical imaging exams and procedure reports are released immediately into your electronic medical record. You may view this report before your referring provider. If you have questions, please contact your health care provider. INDICATION: fall CT CERVICAL SPINE WITHOUT CONTRAST TECHNIQUE: Multidetector axial CT imaging was performed through the cervical spine, without contrast. Sagittal and coronal reconstructions were generated. COMPARISON: 09/24/[address] FINDINGS: No acute fractures are identified. Multilevel degenerative change is noted in the cervical spine, including diffuse degenerative disc disease and scattered facet joint degenerative changes. There is fusion of the C4, C5, and C6 vertebral segments, as before. Osseous alignment is within normal limits and no subluxation is seen. Prevertebral soft tissues are unremarkable. Included portions of the airway and lung apices are within normal limits. IMPRESSION: 1. No fracture, subluxation, or other acute finding identified. 2. Cervical spondylosis, as noted above. DESHAWN LOPEZ MD [facility] Dictated by Omer Lopez MD @ 12/27/2022 2:10:34 AM Please note that all CT scans at this facility use dose modulation, iterative reconstruction, and/or weight-based dosing when appropriate to reduce radiation dose to as low as reasonably achievable. Dictated by: Omer Lopez MD @ 12/27/2022 02:10:57 (Electronically Signed)
--- NOTE | 2022-12-27 00:27 | ED.GENADULT ---
HPI - General Adult General Time Seen by Provider: 00:10 Date Seen: 12/27/22 Chief complaint: Head Injury/Pain Stated complaint: STEMI/tta Time Seen by Provider: 12/27/22 00:13 Source: patient, EMS and RN notes reviewed Mode of arrival: ambulatory Limitations: no limitations History of Present Illness HPI narrative: 82-year-old female who comes in today with a fall. Per EMS, patient was found face down at her home. Patient says she tripped and fell about an hour prior to EMS arrival. At this time, she complains of left leg pain which she says is usual for her, no other complaints. Denies recent cough, cold, nausea, vomiting, diarrhea. Denies chest pain, abdominal pain, shortness of breath. Related Data Home Medications Medication Instructions Recorded Confirmed atorvastatin 20 mg tablet 20 mg PO HS 07/14/22 08/07/22 bupropion HCl 150 mg 24 hr tablet, 150 mg PO QDAY 07/14/22 08/07/22 extended release irbesartan 75 mg tablet 75 mg PO DAILY 07/14/22 08/07/22 metformin 500 mg tablet 500 mg PO BID 07/14/22 08/07/22 oxybutynin chloride 5 mg tablet 5 mg PO BID 07/14/22 08/07/22 verapamil 240 mg tablet,extended 240 mg PO DAILY 07/14/22 08/07/22 release acetaminophen 500 mg tablet 1,000 mg PO Q6H PRN 08/07/22 08/07/22 blood sugar diagnostic (Contour 08/07/22 08/07/22 Next Test Strips) duloxetine 30 mg capsule,delayed 60 mg PO DAILY 08/07/22 08/07/22 release epinephrine 0.3 mg/0.3 mL 0.3 ml IM DIRECTED PRN 08/07/22 08/07/22 injection, auto-injector (EpiPen) Previous Rx's Medication Instructions Recorded insulin glargine 100 unit/mL (3 7 unit (0.07 mL) subcut QPM #15 mL 08/10/22 mL) subcutaneous pen Allergies Allergy/AdvReac Type Severity Reaction Status Date / Time aspirin Allergy Severe Anaphylaxis Verified 12/27/22 02:04 [facility] Medical History At risk for falling Chronic pain CKD (chronic kidney disease) Diabetes mellitus Dysthymic disorder Essential hypertension Fall Fibromyalgia Generalized osteoarthritis GERD (gastroesophageal reflux disease) H/O paroxysmal supraventricular tachycardia Insulin dependent diabetes mellitus Lymphedema Mixed hyperlipidemia Morbid obesity BRITANY on CPAP Venous insufficiency of both lower extremities Surgical History H/O bilateral hip replacements History of bilateral knee replacement History of partial hysterectomy History of radiofrequency ablation (RFA) procedure for cardiac arrhythmia Social History Narrative: ; lives at [place]; Jayy (son) is POA. Highest level of school completed/degree received: high school graduate Smoking Status: Never smoker Do you use any of these nicotine containing products: None Second hand tobacco smoke exposure: No How often do you have a drink containing alcohol: never How often do you have six or more drinks on one occasion: Never AUDIT-C Alcohol total score: 0 Non-prescribed substance use: denies use Caffeine: No service: No Exam Narrative: Exam Narrative: Airway: Patent Breathing: Nonlabored Circulation: Left forehead laceration, otherwise heart is regular and no external signs of bleeding Disability: GCS 15 Musculoskeletal: No tenderness of the thoracic or lumbar spine General: Well-developed and well-nourished, no acute distress Head: 1 cm laceration of the left forehead just above the eyebrow Eyes: Pupils are equal reactive, extraocular motions intact, conjunctiva clear ENT: External nose and ears are normal, posterior pharynx without erythema or exudate Neck: No midline cervical tenderness, full spontaneous range of motion the neck, trachea midline, no adenopathy Heart: Regular rate and rhythm no murmurs or thrills Lungs: Clear to auscultation bilaterally without wheezes or crackles Abdomen: Soft, nontender, nondistended with active bowel sounds Musculoskeletal: Tenderness of the left distal thigh Neurologic: Awake, alert, and oriented x3, no gross focal neurologic deficits, cranial nerves intact as tested Psych: Mood and affect are appropriate Skin: No rashes Const: Vital Signs, click to edit/add: Vital Signs - 24 hr 12/27/22 00:05 12/27/22 00:35 12/27/22 00:40 Temperature 98.2 F Pulse Rate 100 98 Pulse Rate [Right Pulse Oximeter] 106 H Respiratory Rate 22 Blood Pressure Blood Pressure [Ri ght Upper Arm] 141/100 H Pulse Oximetry 99 97 96 Oxygen Delivery Me thod Room Air 12/27/22 00:50 12/27/22 00:51 12/27/22 01:12 Temperature Pulse Rate 97 98 100 Pulse Rate [Right Pulse Oximeter] Respiratory Rate Blood Pressure 154/91 H Blood Pressure [Ri ght Upper Arm] Pulse Oximetry 98 97 94 Oxygen Delivery Me thod 12/27/22 01:16 12/27/22 01:20 12/27/22 01:21 Temperature Pulse Rate 97 101 H 99 Pulse Rate [Right Pulse Oximeter] Respiratory Rate Blood Pressure 158/95 H 160/95 H Blood Pressure [Ri ght Upper Arm] Pulse Oximetry 94 94 96 Oxygen Delivery Me thod 12/27/22 01:30 12/27/22 01:31 12/27/22 01:40 Temperature Pulse Rate 101 H 101 H 99 Pulse Rate [Right Pulse Oximeter] Respiratory Rate Blood Pressure 196/121 H Blood Pressure [Ri ght Upper Arm] Pulse Oximetry 95 96 96 Oxygen Delivery Me thod 12/27/22 01:42 12/27/22 01:48 12/27/22 01:43 Temperature Pulse Rate 98 97 Pulse Rate [Right Pulse Oximeter] Respiratory Rate Blood Pressure 188/97 H Blood Pressure [Ri ght Upper Arm] Pulse Oximetry 95 96 95 Oxygen Delivery Me thod 12/27/22 01:50 12/27/22 01:52 12/27/22 02:01 Temperature Pulse Rate 98 Pulse Rate [Right Pulse Oximeter] Respiratory Rate Blood Pressure 160/95 H 149/88 H Blood Pressure [Ri ght Upper Arm] Pulse Oximetry 94 Oxygen Delivery Me thod 12/27/22 02:11 12/27/22 02:21 12/27/22 02:22 Temperature Pulse Rate 96 96 Pulse Rate [Right Pulse Oximeter] Respiratory Rate Blood Pressure 151/88 H 152/87 H Blood Pressure [Ri ght Upper Arm] Pulse Oximetry 96 98 Oxygen Delivery Me thod 12/27/22 02:30 12/27/22 02:31 12/27/22 02:40 Temperature Pulse Rate 96 98 98 Pulse Rate [Right Pulse Oximeter] Respiratory Rate Blood Pressure 137/96 H Blood Pressure [Ri ght Upper Arm] Pulse Oximetry 95 96 96 Oxygen Delivery Me thod Course Course Hospital Course: Patient seen immediately on arrival, trauma alert activated by EMS. On initial exam, patient is awake alert. She has lacerated the left forehead. No tenderness to palpation of the cervical, lumbar, thoracic spine. No chest wall tenderness and lungs are clear bilaterally. No abdominal tenderness. There is bilateral lower extremity edema, there is tenderness of the left distal thigh but patient says this is usual for her. Labs are ordered along with CT scan of the head. Initial EKG demonstrates accelerated junctional rhythm, no acute ST elevations or depressions. Labs and imaging are ordered. X-ray of the pelvis independently interpreted by me at bedside demonstrates bilateral hip prostheses that are well located. Reevaluation(s) Reevaluation #1: Labs independently interpreted by me so far demonstrate elevated white blood cell count as well as elevated lactate, patient does meet sepsis criteria although no hypotension. She does have tachycardia although this is improving without treatment. Elevated lactate elevated white blood cell count could both be related to decreased perfusion from laying on the floor or dehydration. CT scan is ordered to evaluate for source of intrathoracic or intra-abdominal sepsis. Chest x-ray and panel interpreted by me demonstrates some questionable right lower lobe infiltrate Time: 02:05 Reevaluation #2: Urinalysis consistent with infection, consider Rocephin, no prior cultures, Zosyn is ordered as patient does meet sepsis criteria. Additional fluids will be ordered and patient will be observed in the hospital overnight. Time: 02:29 [facility]evaluation #3: [facility] Time: 02:50 Vital Signs Vital signs: Initial Vital Signs Temperature 98.2 F 12/27/22 00:05 Temperature Source Temporal Artery Scan 12/27/22 00:05 Pulse Rate 106 H 12/27/22 00:05 Respiratory Rate 22 12/27/22 00:05 Blood Pressure 141/100 H 12/27/22 00:05 Blood Pressure Mean 113 12/27/22 00:05 Blood Pressure Position Sitting 12/27/22 00:05 Pulse Oximetry 99 12/27/22 00:05 Oxygen Delivery Method 12/27/22 00:05 Vital Signs Temperature 98.2 F 12/27/22 00:05 Pulse Rate 106 H 12/27/22 00:05 Respiratory Rate 22 12/27/22 00:05 Blood Pressure 141/100 H 12/27/22 00:05 Pulse Oximetry 99 03/16/23 00:05 Oxygen Delivery Method 12/27/22 00:05 Temperature 98.2 F 12/27/22 00:05 Pulse Rate 98 12/27/22 02:40 Respiratory Rate 22 12/27/22 00:05 Blood Pressure 137/96 H 12/27/22 02:31 Pulse Oximetry 96 12/27/22 02:40 Oxygen Delivery Method 12/27/22 00:05 Medical Decision Making Lab Data Labs: Lab Results 12/27/22 12/27/22 12/27/22 Range/Units 00:15 00:15 00:15 WBC 14.49 H (4.50-11.00) K/uL RBC 3.89 L (4.00-5.20) m/uL Hgb 12.2 (12.0-16.0) gm/dL Hct 38.9 (33.0-51.0) % MCV 100 (80-100) fL MCH 31 (26-34) pg MCHC 31 L (32-36) gm/dL RDW Coeff of Nicko 11.8 (11.5-15.5) % Plt Count 260 (140-440) K/uL Neut % (Auto) 73.0 H (42.0-72.0) % Lymph % (Auto) 16.1 L (20-44) % [place] % (Auto) 8.9 (0.0-11.0) % Eos % (Auto) 1.6 (0.0-7.0) % Baso % (Auto) 0.3 (0.0-3.0) % Neut # (Auto) 10.60 H (1.7-7.0) K/uL Lymph # (Auto) 2.30 (0.90-2.90) K/uL [place] # (Auto) 1.30 H (0.00-0.90) K/UL Eos # (Auto) 0.20 (0.00-0.50) K/uL Baso # (Auto) 0.00 (0.00-0.30) K/uL INR 0.99 (0.91-1.10) Sodium 139 (135-149) mmol/L Potassium 4.0 (3.6-5.1) mmol/L Chloride 106 (96-114) mmol/L Carbon Dioxide 25 (20-32) mmol/L BUN 22 (7-30) mg/dL Creatinine 1.0 (0.5-1.5) mg/dL Estimated GFR 56 ml/min Glucose 230 H (60-115) mg/dL Lactate (0.5-1.9) mmol/L Calcium 8.8 (8.4-10.6) mg/dL Total Bilirubin 0.5 (0.1-1.5) mg/dL Direct Bilirubin 0.3 (0.0-0.5) mg/dL AST 22 (12-35) U/L ALT 19 (4-35) U/L Alkaline Phosphatase 67 (40-150) U/L Total Protein 6.3 (6.0-8.3) g/dL Albumin 3.8 (3.3-5.0) g/dL Urine Color (Yellow) Urine Appearance (Clear) Urine pH (5.0-8.5) Ur Specific [place] (1.000-1.030) Urine Protein (Negative) Urine Glucose (UA) (Negative) Urine Ketones (Negative) Urine Blood (Negative) Urine Nitrite (Negative) Urine Bilirubin (Negative) Urine Urobilinogen (0.2-1.0) Ur Leukocyte Esterase (Negative) Urine RBC (0-2) Urine WBC (0-5) Ur Squamous Epith Cells (None-Few) Urine Bacteria (None) Urine Mucus (None) POC Troponin I (0.01-0.04) ng/ml 12/27/22 12/27/22 12/27/22 Range/Units 00:15 00:17 02:09 WBC (4.50-11.00) K/uL RBC (4.00-5.20) m/uL Hgb (12.0-16.0) gm/dL Hct (33.0-51.0) % MCV (80-100) fL MCH (26-34) pg MCHC (32-36) gm/dL RDW Coeff of Nicko (11.5-15.5) % Plt Count (140-440) K/uL Neut % (Auto) (42.0-72.0) % Lymph % (Auto) (20-44) % [place] % (Auto) (0.0-11.0) % Eos % (Auto) (0.0-7.0) % Baso % (Auto) (0.0-3.0) % Neut # (Auto) (1.7-7.0) K/uL Lymph # (Auto) (0.90-2.90) K/uL [place] # (Auto) (0.00-0.90) K/UL Eos # (Auto) (0.00-0.50) K/uL Baso # (Auto) (0.00-0.30) K/uL INR (0.91-1.10) Sodium (135-149) mmol/L Potassium (3.6-5.1) mmol/L Chloride (96-114) mmol/L Carbon Dioxide (20-32) mmol/L BUN (7-30) mg/dL Creatinine (0.5-1.5) mg/dL Estimated GFR ml/min Glucose (60-115) mg/dL Lactate 2.5 H (0.5-1.9) mmol/L Calcium (8.4-10.6) mg/dL Total Bilirubin (0.1-1.5) mg/dL Direct Bilirubin (0.0-0.5) mg/dL AST (12-35) U/L ALT (4-35) U/L Alkaline Phosphatase (40-150) U/L Total Protein (6.0-8.3) g/dL Albumin (3.3-5.0) g/dL Urine Color Yellow (Yellow) Urine Appearance Clear (Clear) Urine pH 5.0 (5.0-8.5) Ur Specific [place] 1.010 (1.000-1.030) Urine Protein Negative (Negative) Urine Glucose (UA) Negative (Negative) Urine Ketones Negative (Negative) Urine Blood 1+ A (Negative) Urine Nitrite Positive A (Negative) Urine Bilirubin Negative (Negative) Urine Urobilinogen 0.2 (0.2-1.0) Ur Leukocyte Esterase 2+ A (Negative) Urine RBC 0-2 (0-2) Urine WBC 5-10 A (0-5) Ur Squamous Epith Cells Few (None-Few) Urine Bacteria Moderate A (None) Urine Mucus Few A (None) POC Troponin I 0.02 (0.01-0.04) ng/ml ECG Data Attestation: I personally reviewed and interpreted this ECG as follows: Prior ECG tracings: not available for review Interpretation: Performed at 12:05 a.m. independently interpreted by me demonstrates junctional rhythm rate 126, no acute ST elevations or depressions, left axis deviation, normal intervals, ND 166, QTC 515. No change from prior of September 2022. Repeat due to questionable quality of initial EKG performed at 12:25 a.m. demonstrates junctional rhythm with left axis deviation rate 101, no acute ST elevations or depressions, normal intervals, QTC 484. No change from prior of earlier today Discharge Plan Discharge Clinical Impression: Urinary tract infection, Diabetes mellitus, Forehead contusion, Forehead laceration, Fall Patient Disposition: Admitted As Inpatient Condition: Improved
[2022-12-27 00:30] LABS: Lactate* 2.5 mmol/L (0.5-1.9)
[2022-12-27 00:31] LABS: Basophils Percent Auto 0.3 % (0.0-3.0); Eosinophils Percent Auto 1.6 % (0.0-7.0); Hematocrit 38.9 % (33.0-51.0); Hemoglobin* 12.2 gm/dL (12.0-16.0); Immature Granulocytes Pct Auto 0.1 %; Lymphocytes Percent Auto 16.1 % (20-44); Mean Corpuscular HGB Conc 31 gm/dL (32-36); Mean Corpuscular Hemoglobin 31 pg (26-34); Mean Corpuscular Volume 100 fL (80-100); Monocytes Percent Auto 8.9 % (0.0-11.0); Platelet Count* 260 K/uL (140-440); RDW Coefficient of Variation % 11.8 % (11.5-15.5); Red Blood Count 3.89 m/uL (4.00-5.20); White Blood Count* 14.49 K/uL (4.50-11.00)
[2022-12-27 00:33] LABS: Slide Review Reflex No
[2022-12-27 00:37] LABS: INR 0.99 (0.91-1.10); Prothrombin Time 13.7 Seconds
--- NOTE | 2022-12-27 00:37 | CRLHL7_ITS ---
For Patients: As a result of the Century Cures Act, medical imaging exams and procedure reports are released immediately into your electronic medical record. You may view this report before your referring provider. If you have questions, please contact your health care provider. Indication: Fall, sepsis Technique: Postcontrast CT chest, abdomen and pelvis. 125 cc Isovue 370 intravenous contrast. Please note that all CT scans at this facility use dose modulation, iterative reconstruction, and/or weight-based dosing when appropriate to reduce radiation dose to as low as reasonably achievable. Comparison: None Findings: In the chest, mild dependent areas of scarring are present in both lung bases. No pleural effusion or pulmonary contusion. No pneumothorax. No adenopathy. No traumatic aortic injury. No pleural or pericardial effusion. No trade. No fracture. Degenerative changes. Right shoulder replacement hardware. In the abdomen, the liver parenchyma is within normal limits. Normal spleen. Fatty atrophy of the pancreas. Adrenal glands are normal. Bilateral simple renal cortical cysts measuring up to 3.2 cm. Slight stranding within the central mesenteric fat along with a few scattered subcentimeter lymph nodes representing mild nonspecific mesenteric panniculitis. No free air or abscess. No bowel obstruction. Atherosclerotic disease. No aneurysm. No enlarged lymph nodes. In the pelvis, multilevel degenerative facet arthropathy throughout the lumbar spine with grade 1 degenerative spondylolisthesis of L3 on L4 and L4 on L5. Multilevel vacuum disc phenomenon noted. No evidence of discitis or osteomyelitis. No acute fracture. Bilateral hip replacement hardware. Mild colonic diverticulosis. No diverticulitis. Appendix normal. No enlarged pelvic or inguinal lymph nodes. Visualized bladder appears normal. There is beam hardening artifact. A right ovarian cyst is present measuring 2.4 cm. No pelvic soft tissue mass. Impression: No traumatic injury or acute inflammatory changes regarding the chest, abdomen and pelvis. Please note that all CT scans at this facility use dose modulation, iterative reconstruction, and/or weight-based dosing when appropriate to reduce radiation dose to as low as reasonably achievable. Dictated by Shon Pittman MD @ 12/30/2022 10:11:07 AM (Electronically Signed)
[2022-12-27 00:38] LABS: Albumin* 3.8 g/dL (3.3-5.0); Chloride* 106 mmol/L (96-114); Sodium* 139 mmol/L (135-149)
[2022-12-27 00:41] LABS: Alanine Aminotransferase* 19 U/L (4-35); Alkaline Phosphatase* 67 U/L (40-150); Aspartate Amino Transferase* 22 U/L (12-35); Bilirubin Direct* 0.3 mg/dL (0.0-0.5); Bilirubin Total* 0.5 mg/dL (0.1-1.5); Blood Urea Nitrogen* 22 mg/dL (7-30); Carbon Dioxide* 25 mmol/L (20-32); Estimated Glomerular Filt Rate 56 ml/min; Glucose* 230 mg/dL (60-115); Total Protein* 6.3 g/dL (6.0-8.3)
[2022-12-27 00:42] LABS: Calcium* 8.8 mg/dL (8.4-10.6)
[2022-12-27] MEDS: 0.9 % SODIUM CHLORIDE 1000 ml 1,000 ML IV ×2 (00:42→02:45)
[2022-12-27 00:43] LABS: Troponin, Point-of-Care* 0.02 ng/ml (0.01-0.04)
[2022-12-27 02:14] LABS: Appearance Urine Clear (Clear); Bilirubin Urine Negative (Negative); Blood Urine 1+ (Negative); Color Urine Yellow (Yellow); Glucose Urine Negative (Negative); Ketones Urine Negative (Negative); Leukocyte Esterase Urine 2+ (Negative); Nitrite Urine Positive (Negative); Protein Urine Negative (Negative); Urobilinogen Urine 0.2 (0.2-1.0)
[2022-12-27 02:23] LABS: Bacteria Urine Moderate; Mucus Urine Few; RBC Urine 0-2 (0-2); Squamous Epithelial Cell Urine Few (None-Few)
--- NOTE | 2022-12-27 02:30 | CRLHL7_ITS ---
For Patients: As a result of the Century Cures Act, medical imaging exams and procedure reports are released immediately into your electronic medical record. You may view this report before your referring provider. If you have questions, please contact your health care provider. INDICATION: Fall. Pain. TECHNIQUE: Two views of the left femur. COMPARISON: Pelvis radiographs 12/27/2022 and left hip radiographs 08/07/2022. FINDINGS: There are hardware components of a left hip and knee arthroplasties partially visualized situated in anatomic alignment. No hip or knee dislocation. No evidence of periprosthetic fracture or suspicious osseous lesion. There is mild reticulation of the subcutaneous fat over the left distal femur which could be related to edema or bruising. IMPRESSION: No evidence of acute fracture. Dictated by Linda Gamez MD @ 12/27/2022 3:39:39 AM (Electronically Signed)
[2022-12-27] MEDS: PIPERACILLIN/TAZOBACTAM 3.375 GM in 0.9 % SODIUM CHLORIDE Mini-bag 100 ML IVPB (02:36)
--- NOTE | 2022-12-27 02:47 | PC.NURSE ---
call placed to patients son Jayy [phone], patients JOSÉ MIGUEL does not have a name. message left for Jayy to return call.
[2022-12-27 03:02] LABS: PCR FLU A Negative PCR FLU A (Negative); PCR FLU B Negative PCR FLU B (Negative)
[2022-12-27 03:03] LABS: SARS PCR* Negative SARS-CoV-2 (Negative)
[2022-12-27] MEDS: 0.9 % SODIUM CHLORIDE 1000 ml 1,000 ML 75 ML IV (04:40)
[2022-12-27] MEDS: cefTRIAXone 2 GM in 0.9 % SODIUM CHLORIDE Mini-bag 100 ML IVPB (04:40)
[2022-12-27] MEDS: ACETAMINOPHEN 325 MG TABLET 650 MG PO ×2 (04:45→09:01)
[2022-12-27] MEDS: LIDOCAINE 5% PATCH 1 PATCH TRANSDERMA (04:45)
--- NOTE | 2022-12-27 04:56 | PM.IMCN1 ---
Date of Consult Consult date: 12/27/22 Primary Care Provider: Joaquina Cartwright DO Consult Narrative Narrative: Paulette Monroe is a 82 year old female [facility] Medical History At risk for falling Chronic pain CKD (chronic kidney disease) Diabetes mellitus Dysthymic disorder Essential hypertension Fall Fibromyalgia Generalized osteoarthritis GERD (gastroesophageal reflux disease) H/O paroxysmal supraventricular tachycardia Insulin dependent diabetes mellitus Lymphedema Mixed hyperlipidemia Morbid obesity BRITANY on CPAP Venous insufficiency of both lower extremities Surgical History H/O bilateral hip replacements History of bilateral knee replacement History of partial hysterectomy History of radiofrequency ablation (RFA) procedure for cardiac arrhythmia Social History Narrative: ; lives at [facility] [place]; Jayy (son) is POA. Highest level of school completed/degree received: high school graduate Smoking Status: Never smoker Do you use any of these nicotine containing products: None Second hand tobacco smoke exposure: No How often do you have a drink containing alcohol: never How often do you have six or more drinks on one occasion: Never AUDIT-C Alcohol total score: 0 Non-prescribed substance use: denies use Caffeine: No service: No Meds Home Medications and Allergies Home Medications Medication Instructions Recorded Confirmed Type atorvastatin 20 mg tablet 20 mg PO HS 07/14/22 08/07/22 History bupropion HCl 150 mg 24 hr tablet, 150 mg PO QDAY 07/14/22 08/07/22 History extended release irbesartan 75 mg tablet 75 mg PO DAILY 07/14/22 08/07/22 History metformin 500 mg tablet 500 mg PO BID 07/14/22 08/07/22 History oxybutynin chloride 5 mg tablet 5 mg PO BID 07/14/22 08/07/22 History verapamil 240 mg tablet,extended 240 mg PO DAILY 07/14/22 08/07/22 History release acetaminophen 500 mg tablet 1,000 mg PO Q6H PRN 08/07/22 08/07/22 History blood sugar diagnostic (Contour 08/07/22 08/07/22 History Next Test Strips) duloxetine 30 mg capsule,delayed 60 mg PO DAILY 08/07/22 08/07/22 History release epinephrine 0.3 mg/0.3 mL 0.3 ml IM DIRECTED PRN 08/07/22 08/07/22 History injection, auto-injector (EpiPen) Allergies Allergy/AdvReac Type Severity Reaction Status Date / Time aspirin Allergy Severe Anaphylaxis Verified 12/27/22 02:04 Exam Const: Vital Signs, click to edit/add: Vital Signs - 24 hr 12/27/22 00:05 12/27/22 00:35 12/27/22 00:40 Temperature 98.2 F Pulse Rate 100 98 Pulse Rate [Right Pulse Oximeter] 106 H Respiratory Rate 22 Blood Pressure Blood Pressure [Ri ght Upper Arm] 141/100 H Pulse Oximetry 99 97 96 Oxygen Delivery Me thod Room Air 12/27/22 00:50 12/27/22 00:51 12/27/22 01:12 Temperature Pulse Rate 97 98 100 Pulse Rate [Right Pulse Oximeter] Respiratory Rate Blood Pressure 154/91 H Blood Pressure [Ri ght Upper Arm] Pulse Oximetry 98 97 94 Oxygen Delivery Me thod 12/27/22 01:16 12/27/22 01:20 12/27/22 01:21 Temperature Pulse Rate 97 101 H 99 Pulse Rate [Right Pulse Oximeter] Respiratory Rate Blood Pressure 158/95 H 160/95 H Blood Pressure [Ri ght Upper Arm] Pulse Oximetry 94 94 96 Oxygen Delivery Me thod 12/27/22 01:30 12/27/22 01:31 12/27/22 01:40 Temperature Pulse Rate 101 H 101 H 99 Pulse Rate [Right Pulse Oximeter] Respiratory Rate Blood Pressure 196/121 H Blood Pressure [Ri ght Upper Arm] Pulse Oximetry 95 96 96 Oxygen Delivery Me thod 12/27/22 01:42 12/27/22 01:48 12/27/22 01:43 Temperature Pulse Rate 98 97 Pulse Rate [Right Pulse Oximeter] Respiratory Rate Blood Pressure 188/97 H Blood Pressure [Ri ght Upper Arm] Pulse Oximetry 95 96 95 Oxygen Delivery Me thod 12/27/22 01:50 12/27/22 01:52 12/27/22 02:01 Temperature Pulse Rate 98 Pulse Rate [Right Pulse Oximeter] Respiratory Rate Blood Pressure 160/95 H 149/88 H Blood Pressure [Ri ght Upper Arm] Pulse Oximetry 94 Oxygen Delivery Me thod 12/27/22 02:11 12/27/22 02:21 12/27/22 02:22 Temperature Pulse Rate 96 96 Pulse Rate [Right Pulse Oximeter] Respiratory Rate Blood Pressure 151/88 H 152/87 H Blood Pressure [Ri ght Upper Arm] Pulse Oximetry 96 98 Oxygen Delivery Me thod 12/27/22 02:30 12/27/22 02:31 12/27/22 02:40 Temperature Pulse Rate 96 98 98 Pulse Rate [Right Pulse Oximeter] Respiratory Rate Blood Pressure 137/96 H Blood Pressure [Ri ght Upper Arm] Pulse Oximetry 95 96 96 Oxygen Delivery Ms thod 12/27/22 02:50 12/27/22 03:00 12/27/22 03:02 Temperature Pulse Rate 97 98 95 Pulse Rate [Right Pulse Oximeter] Respiratory Rate Blood Pressure 159/92 H Blood Pressure [Ri ght Upper Arm] Pulse Oximetry 95 96 96 [facility] Labs: Short CBC 12/27/22 Range/Units 00:15 WBC 14.49 H (4.50-11.00) K/uL Hgb 12.2 (12.0-16.0) gm/dL Hct 38.9 (33.0-51.0) % Plt Count 260 (140-440) K/uL BMP 12/27/22 00:15 Sodium 139 Potassium 4.0 Chloride 106 Carbon Dioxide 25 BUN 22 Creatinine 1.0 Glucose 230 H Calcium 8.8 Liver Function 12/27/22 Range/Units 00:15 Total Bilirubin 0.5 (0.1-1.5) mg/dL Direct Bilirubin 0.3 (0.0-0.5) mg/dL AST 22 (12-35) U/L ALT 19 (4-35) U/L Alkaline Phosphatase 67 (40-150) U/L Albumin 3.8 (3.3-5.0) g/dL Urine 12/27/22 Range/Units 02:09 Urine Color Yellow (Yellow) Urine Appearance Clear (Clear) Urine pH 5.0 (5.0-8.5) Ur Specific [place] 1.010 (1.000-1.030) Urine Protein Negative (Negative) Urine Glucose (UA) Negative (Negative) Assessment and Plan Assessment and plan (1) Urinary tract infection: Status: Acute Plan [facility] Hospitalist eHospitalist was contacted with request of consultation on Ms. Paulette Monroe Patient is a 82-year-old female who is brought to ER by EMS after she had a fall at home where she was found to be lying on her face down. Patient does not recall the full details of the event, he just states she was to much weak and does not recall what happened and she laid onto the floor hitting her left eye eventually. She denies losing consciousness but she is not sure, she denies chest or abdominal pain but she has been endorsing acute on chronic back pain since then. She is able to move her extremities however is lethargic to walk independently. She denies any known fever, cough, shortness of breath at rest. She denies any significant urinary complaints including dysuria frequency, she gets diarrhea with fatty food but it has not happened in the last couple of weeks. In the emergency room work-up including screening imaging of CT head and cervical spine that were negative for acute abnormality, it was followed by CT chest abdomen and pelvis that was again negative for acute abnormality as per ED staff. X-ray femur was negative for acute fracture on the left side. She was noted to have UA abnormal concerning for infection, urine cultures were sent, she was given a dose of Zosyn, due to elevated lactate and leukocytosis she was also given 2 L of IVF and admitted for further management. Her periorbital skin was glued in ED. Home Medications: Tylenol, atorvastatin, bupropion, duloxetine, insulin, metformin, oxybutynin, verapamil Pertinent Medical History: HTN, HLP, mood disorder, BRITANY on CPAP Exam (performed via interactive video with assistance of bedside nurse): General: [alert, cooperative, no acute distress but looks tired] HEENT: EOMI grossly [oral mucosa moist without erythema bruise around the left orbit] Lungs: [Equal air entry bilaterally , no wheeze] CV: [regular rate and rhythm without loud murmur rub or gallop] Abd: [denies tenderness and does not exhibit signs of pain with palpation done by bedside nurse] Ext: [no pitting edema noted] Skin: [Left periorbital bruises, with minor laceration appreciated on gross visualization of exposed skin] Neuro: [alert, oriented x . EOMI, moves all extremities without any significant focal deficit appreciated by nurse] Labs and imaging were reviewed. Assessment and Plan: Sepsis likely secondary to UTI (leukocytosis, elevated lactate, abnormal UA) Generalized weakness and mechanical fall likely secondary to above along with deconditioning S/p Zosyn in ED, switched to ceftriaxone 2 g daily, no previous resistant bugs noted, patient hemodynamically stable, no chronic Vela catheter Send blood cultures, repeat lactate this morning, follow-up urine culture results, change antibiotics further based on course and culture results S/p Boulter IVF in ED, continue NS 75 cc/h 1 more liter, encourage p.o. intake. IVF later today if LA normalized Acute on chronic back pain likely secondary to fall?acute fractures ruled out on imaging studies, continue Tylenol, lidocaine patch, and morphine as needed for severe breakthrough pain cautiously Facial injury/repaired in ED, continue nursing care Comorbidities BRITANY?ordered CPAP at home setting DM 2?insulin lispro sliding scale with blood sugar monitoring HTN?hold antihypertensive for now to make sure patient does not develop complications of infection Patient has requested DNR, carb consistent diet, SCDs and Lovenox for DVT prophylaxis, appropriate for inpatient admission as anticipate greater than 2 midnight stay Thank you for including [facility] Hospitalist in the patients care. This service is available for further assistance as requested by your care team by calling [phone].
[2022-12-27] MEDS: ENOXAPARIN 40 MG/0.4 ML INJ SUBCUT (06:12)
--- NOTE | 2022-12-27 06:46 | PC.NURSE ---
END OF SHIFT NOTE: PT CONFUSED; ALERT TO SELF.?COOPERATIVE WITH CARES. PT DENIES CP, SOB, N/V. PT COMPLAINS OF FRONTAL HEAD, BACK AND ANKLE PAIN. PAIN RELIEVER ADMINISTERED AND LIDOCAINE PATCH APPLIED TO LEFT LOWER BACK. HEAD LAC TO FRONTAL LEFT HEAD THAT WAS GLUE IN ED. PT HAS BEEN INCONTINENT OF URINE THIS SHIFT. ATTEMPT TO AMBULATE PT WAS UNSUCCESSFUL. VSS ON RA; AFEBRILE. BED ALARM ON AND CALL LIGHT WITHIN PT?S REACH.?
[2022-12-27 06:51] LABS: Lactate* 1.3 mmol/L (0.5-1.9)
[2022-12-27 06:57] LABS: Basophils Percent Auto 0.3 % (0.0-3.0); Eosinophils Percent Auto 0.7 % (0.0-7.0); Hemoglobin* 12.6 gm/dL (12.0-16.0); Immature Granulocytes Pct Auto 0.1 %; Lymphocytes Percent Auto 14.2 % (20-44); Mean Corpuscular HGB Conc 32 gm/dL (32-36); Mean Corpuscular Hemoglobin 32 pg (26-34); Mean Corpuscular Volume 100 fL (80-100); Monocytes Percent Auto 9.1 % (0.0-11.0); Neutrophils Percent Auto 75.6 % (42.0-72.0); Platelet Count* 243 K/uL (140-440); RDW Coefficient of Variation % 11.8 % (11.5-15.5); Red Blood Count 3.89 m/uL (4.00-5.20); White Blood Count* 13.48 K/uL (4.50-11.00)
[2022-12-27 06:58] LABS: Slide Review Reflex No
[2022-12-27] MEDS: DULOXETINE 30 MG CAPSULE DR 60 MG PO (10:09)
[2022-12-27] MEDS: VERAPAMIL HCL 240 MG ER TABLET PO (10:10)
[2022-12-27] MEDS: IRBESARTAN 150 MG TABLET 75 MG PO (10:10)
--- NOTE | 2022-12-27 10:31 | P.IMHP_ITS ---
Hospitalist- H&P: HPI History of Present Illness Date Seen: 12/27/22 Chief complaint: STEMI/tta Narrative: Paulette Monroe is a 82 year old female admitted to the hospital after a fall at home. This morning patient has altered mental status and has difficulty giving details of history. She tells me that she thought she was feeling well yesterday when she went to bed. After that she does not recall what happened. She does not recall getting out of bed, falling or calling for help. She apparently was found down on the floor unable to get up. She had a left forehead laceration and contusion. Was evaluated in the emergency department for that as well as for other source of illness it was making her ill. Review of Systems Narrative: Patient denies any symptoms of illness. History is unreliable due to altered mental status. [facility] Medical History (Updated 12/27/22 @ 11:00 by Franck Painter MD) AMS (altered mental status) At risk for falling Chronic pain CKD (chronic kidney disease) COVID-19 Diabetes mellitus Dysthymic disorder Essential hypertension Fall Fibromyalgia Generalized osteoarthritis GERD (gastroesophageal reflux disease) H/O paroxysmal supraventricular tachycardia Insulin dependent diabetes mellitus Lymphedema Mixed hyperlipidemia Morbid obesity BRITANY on CPAP Spinal stenosis Urinary incontinence Venous insufficiency of both lower extremities Weakness Surgical History H/O bilateral hip replacements History of bilateral knee replacement History of partial hysterectomy History of radiofrequency ablation (RFA) procedure for cardiac arrhythmia Social History (Updated 12/27/22 @ 10:44 by Franck Painter MD) Narrative: ; lives at [facility]; Jayy (son) is POA. Walks with a walker but also uses an electric scooter. Nurses set up medications. Code status is DNR. Her son Jayy is healthcare power of workers compensation defense attorney. Highest level of school completed/degree received: high school graduate Smoking Status: Never smoker Do you use any of these nicotine containing products: None Second hand tobacco smoke exposure: No How often do you have a drink containing alcohol: never How often do you have six or more drinks on one occasion: Never AUDIT-C Alcohol total score: 0 Non-prescribed substance use: denies use Caffeine: No service: No Meds Home Medications and Allergies Home Medications Medication Instructions Recorded Confirmed Type atorvastatin 20 mg tablet 20 mg PO HS 07/14/22 12/27/22 History bupropion HCl 150 mg 24 hr tablet, 150 mg PO QDAY 07/14/22 12/27/22 History extended release irbesartan 75 mg tablet 75 mg PO DAILY 07/14/22 12/27/22 History metformin 500 mg tablet 500 mg PO BID 07/14/22 12/27/22 History oxybutynin chloride 5 mg tablet 5 mg PO BID 07/14/22 12/27/22 History verapamil 240 mg tablet,extended 240 mg PO DAILY 07/14/22 12/27/22 History release acetaminophen 500 mg tablet 1,000 mg PO Q6H PRN 08/07/22 12/27/22 History blood sugar diagnostic (Contour 08/07/22 08/07/22 History Next Test Strips) duloxetine 30 mg capsule,delayed 60 mg PO DAILY 08/07/22 12/27/22 History release epinephrine 0.3 mg/0.3 mL 0.3 ml IM DIRECTED PRN 08/07/22 12/27/22 History injection, auto-injector (EpiPen) Home Medication Comments: Patient does not know her medications. Nurse sets up and administers medications. Allergies Allergy/AdvReac Type Severity Reaction Status Date / Time aspirin Allergy Severe Anaphylaxis Verified 12/27/22 02:04 Exam Narrative: Exam Narrative: She is sleepy but arouses to voice. She is not oriented to her circumstances. She he is unable to give any information about the events leading to her hospitalization. She does not recall falling and hitting her head. She does not know where she lives. Head is notable for bruising and laceration over the left forehead and lateral eyebrow. Moderate bruising without active bleeding. No bony deformity palpated. No other head trauma identified. Eyes are normal. Pupils are equal round and reactive to light. Extraocular movements are full. Visual lafleur are intact. There is no facial asymmetry. Oropharynx with small airway. Dry mucous membranes. Neck is supple without mass or adenopathy. She has limited range of motion in her neck. No significant pain with motion. Palpation over the midline posteriorly is nontender. Respirations are clear to auscultation. Cardiovascular: S1, S2, regular rate and rhythm. Abdomen: Bowel sounds active. Abdomen is soft without tenderness or mass. She has 5/5 strength in upper extremities with finger extension and wire brusher strength, wrist flexion and extension, elbow flexion extension, shoulder flexion extension. Intact pulses. He [id number] is accurate though she struggles to follow the instructions for it. Lower extremities with bilateral moderate lymphedema. Foot and ankle flexion and extension and great toe dorsiflexion bilaterally normal. She is barely able to lift her heels off the bed. Intact pedal pulses. Const: Vital Signs, click to edit/add: Vital Signs - 24 hr 12/27/22 00:05 12/27/22 00:35 12/27/22 00:40 Temperature 98.2 F Pulse Rate 100 98 Pulse Rate [Pulse Oximeter] Pulse Rate [Right Pulse Oximeter] 106 H Respiratory Rate 22 Blood Pressure Blood Pressure [Le ft Arm] Blood Pressure [Ri ght Upper Arm] 141/100 H Pulse Oximetry 99 97 96 Oxygen Delivery Me od Room Air 12/27/22 00:50 12/27/22 00:51 12/27/22 01:12 Temperature Pulse Rate 97 98 100 Pulse Rate [Pulse Oximeter] Pulse Rate [Right Pulse Oximeter] Respiratory Rate Blood Pressure 154/91 H Blood Pressure [Le ft Arm] Blood Pressure [Ri ght Upper Arm] Pulse Oximetry 98 97 94 Oxygen Delivery Me thod 12/27/22 01:16 12/27/22 01:20 12/27/22 01:21 Temperature Pulse Rate 97 101 H 99 Pulse Rate [Pulse Oximeter] Pulse Rate [Right Pulse Oximeter] Respiratory Rate Blood Pressure 158/95 H 160/95 H Blood Pressure [Le ft Arm] Blood Pressure [Ri ght Upper Arm] Pulse Oximetry 94 94 96 Oxygen Delivery Me thod 12/27/22 01:30 12/27/22 01:31 12/27/22 01:40 Temperature Pulse Rate 101 H 101 H 99 Pulse Rate [Pulse Oximeter] Pulse Rate [Right Pulse Oximeter] Respiratory Rate Blood Pressure 196/121 H Blood Pressure [Le ft Arm] Blood Pressure [Ri ght Upper Arm] Pulse Oximetry 95 96 96 Oxygen Delivery Me thod 12/27/22 01:42 12/27/22 01:48 12/27/22 01:43 Temperature Pulse Rate 98 97 Pulse Rate [Pulse Oximeter] Pulse Rate [Right Pulse Oximeter] Respiratory Rate Blood Pressure 188/97 H Blood Pressure [Le ft Arm] Blood Pressure [Ri ght Upper Arm] Pulse Oximetry 95 96 95 Oxygen Delivery Me thod 12/27/22 01:50 12/27/22 01:52 12/27/22 02:01 Temperature Pulse Rate 98 Pulse Rate [Pulse Oximeter] Pulse Rate [Right Pulse Oximeter] Respiratory Rate Blood Pressure 160/95 H 149/88 H Blood Pressure [Le ft Arm] Blood Pressure [Ri ght Upper Arm] Pulse Oximetry 94 Oxygen Delivery Me thod 12/27/22 02:11 12/27/22 02:21 12/27/22 02:22 Temperature Pulse Rate 96 96 Pulse Rate [Pulse Oximeter] Pulse Rate [Right Pulse Oximeter] Respiratory Rate Blood Pressure 151/88 H 152/87 H Blood Pressure [Le ft Arm] Blood Pressure [Ri ght Upper Arm] Pulse Oximetry 96 98 Oxygen Delivery Me thod 12/27/22 02:30 12/27/22 02:31 12/27/22 02:40 Temperature Pulse Rate 96 98 98 Pulse Rate [Pulse Oximeter] Pulse Rate [Right Pulse Oximeter] Respiratory Rate Blood Pressure 137/96 H Blood Pressure [Le ft Arm] Blood Pressure [Ri ght Upper Arm] Pulse Oximetry 95 96 96 Oxygen Delivery Me thod 12/27/22 02:50 12/27/22 03:00 12/27/22 03:02 Temperature Pulse Rate 97 98 95 Pulse Rate [Pulse Oximeter] Pulse Rate [Right Pulse Oximeter] Respiratory Rate Blood Pressure 159/92 H Blood Pressure [Le ft Arm] Blood Pressure [Ri ght Upper Arm] Pulse Oximetry 95 96 96 Oxygen Delivery Me thod 12/27/22 04:21 12/27/22 04:21 Temperature 97.9 F Pulse Rate Pulse Rate [Pulse Oximeter] 89 Pulse Rate [Right Pulse Oximeter] Respiratory Rate 18 Blood Pressure Blood Pressure [Le ft Arm] 116/82 Blood Pressure [Ri ght Upper Arm] Pulse Oximetry 96 96 Oxygen Delivery Me thod Room Air Room Air Documenting provider has reviewed patient's vital signs: yes Hospitalist - H&P: Result Labs Labs: Short CBC 12/27/22 12/27/22 Range/Units 00:15 04:50 WBC 14.49 H 13.48 H (4.50-11.00) K/uL Hgb 12.2 12.6 (12.0-16.0) gm/dL Hct 38.9 39.0 (33.0-51.0) % Plt Count 260 243 (140-440) K/uL BMP 12/27/22 00:15 Sodium 139 Potassium 4.0 Chloride 106 Carbon Dioxide 25 BUN 22 Creatinine 1.0 Glucose 230 H Calcium 8.8 Liver Function 12/27/22 Range/Units 00:15 Total Bilirubin 0.5 (0.1-1.5) mg/dL Direct Bilirubin 0.3 (0.0-0.5) mg/dL AST 22 (12-35) U/L ALT 19 (4-35) U/L Alkaline Phosphatase 67 (40-150) U/L Albumin 3.8 (3.3-5.0) g/dL Urine 12/27/22 Range/Units 02:09 Urine Color Yellow (Yellow) Urine Appearance Clear (Clear) Urine pH 5.0 (5.0-8.5) Ur Specific [place] 1.010 (1.000-1.030) Urine Protein Negative (Negative) Urine Glucose (UA) Negative (Negative) Imaging CT Chest/Ab/Pelvis: Radiologist's impression: Preliminary report shows no acute findings in the chest abdomen or pelvis. CT scan - head: Radiologist's impression: CT head and cervical spine show no acute hemorrhage or intracranial or cervical traumatic injury Assessment and Plan Assessment and plan (1) Sepsis: Problem comment: Improved with fluids and antibiotics Status: Acute (2) Urinary tract infection: Problem comment: Likely source for sepsis. Cultures pending. Continue ceftriaxone. Status: Acute (3) AMS (altered mental status): Problem comment: Very sleepy. Not oriented. Difficult to arouse. Not receiving opioid pain medicine. Head injury and sepsis on this admission. Possible delirium. Possible concussion. Status: Acute (4) Forehead contusion: Problem comment: Possible concussion verses delirium from sepsis Status: Acute (5) Diabetes mellitus: Problem comment: Long-acting and sliding scale insulin. Hold metformin and glipizide while acutely ill Status: Acute (6) Weakness: Problem comment: Acute on chronic. PT and OT to assess Status: Acute (7) Fall: Problem comment: Fall with head injury. Details unknown. Recurrent problem. Status: Acute (8) BRITANY on CPAP: Status: Acute (9) Urinary incontinence: Problem comment: Due to altered mental status hold ditropan. Bladder scan shows 91 mL of urine. Does not appear to have bladder outlet obstruction troubles. Likely urge incontinence and stress incontinence. Status: Acute (10) Spinal stenosis: Problem comment: MRI 12/19/2022 shows central canal and neural foraminal stenosis at multiple levels Status: Acute (11) Forehead laceration: Problem comment: Appears to be healing appropriately. Continue to monitor Status: Acute (12) Venous insufficiency of both lower extremities: Problem comment: Support hose. Has declined support does in the past Status: Acute Plan Patient will be admitted to the hospital for treatment of sepsis due to urinary tract infection and ongoing evaluation treatment of altered mental status due to delirium or concussion or other cause. Total time spent today is 80 minutes, 50 minutes in coordination of care discussing with other providers ongoing evaluation management of above medical problems
[2022-12-27] MEDS: buPROPion XL 150 MG TABLET PO (12:07)
[2022-12-27] MEDS: ACETAMINOPHEN 325 MG TABLET 975 MG PO (14:19)
--- NOTE | 2022-12-27 14:28 | PC.NURSE ---
End of Shift: Patient is confused but pleasant, orientated to self. Has been sleeping on and off this morning. Laceration above left eyebrow. Needs encouragement with meals, but tolerates well. Blood sugars done and insulin given. Lidocaine patch located on lower back is intact. Companied of headache, relieved with PRN medication. Bilateral ROB wraps placed on legs. Bladder scanned twice today per MD order with <100. Heavy 2 assist, PT recommending EZ stand. Resting in bed.
--- NOTE | 2022-12-27 19:26 | PC.NURSE ---
End of Shift ([id number]): Patient pleasant, cooperative, and confused, only oriented to self. Patient vitally stable, lungs clear, BS WNL, IV running NS at 75. Patient 2 assist/EZ stand. Patient rated ankle pain 3/10, no pain meds given. Patient bruised with laceration above left eyebrow, pain with palpation. Patient up in chair for dinner eating 50% of meal. Tele=1 degree HB. Blood sugar 159.
[2022-12-27] MEDS: ATORVASTATIN 10 MG TABLET 20 MG PO (21:21)
[2022-12-27] MEDS: SODIUM CHLORIDE 0.9 % (FLUSH) 10 ML SYRINGE 5 ML IVF (21:21)
[2022-12-28] VITALS (8 sets, daily range): BP systolic 113–160; BP diastolic 53–90; PULSE 65–103; RESP 18–20; TEMP 36.3–37.1; O2SAT 93–96
[2022-12-28] MEDS: cefTRIAXone 2 GM in 0.9 % SODIUM CHLORIDE Mini-bag 100 ML IVPB (04:20)
[2022-12-28] MEDS: LIDOCAINE 5% PATCH 1 PATCH TRANSDERMA (04:20)
--- NOTE | 2022-12-28 06:47 | PC.NURSE ---
23-07: T&R Q 2hrs. Incont. Lidocaine patch to lower back. VSS. Occasionally tachy, highest HR 103. Tele = NS w/ 1st degree HB.
[2022-12-28] MEDS: DULOXETINE 30 MG CAPSULE DR 60 MG PO (08:26)
[2022-12-28] MEDS: buPROPion XL 150 MG TABLET 300 MG PO (08:27)
[2022-12-28] MEDS: SODIUM CHLORIDE 0.9 % (FLUSH) 10 ML SYRINGE 5 ML IVF ×2 (08:27→20:37)
[2022-12-28] MEDS: IRBESARTAN 150 MG TABLET 75 MG PO (08:27)
[2022-12-28] MEDS: VERAPAMIL HCL 240 MG ER TABLET PO (08:28)
--- NOTE | 2022-12-28 08:52 | CRLHL7_ITS ---
For Patients: As a result of the Century Cures Act, medical imaging exams and procedure reports are released immediately into your electronic medical record. You may view this report before your referring provider. If you have questions, please contact your health care provider. INDICATION: Altered mental status. TECHNIQUE: Multiplanar multisequence noncontrast MR images acquired through the brain. COMPARISON: CT brain 12/27/2022. FINDINGS: [id number] enlargement of the supratentorial ventricular system out of proportion to the degree of cerebral sulcal prominence. No mass effect or midline shift. Patchy T2 FLAIR hyperintensities in the supratentorial white matter and kj, typical for moderate chronic microvascular ischemic changes. 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 No diffusion restriction to suggest acute infarction. Very shallow FLAIR hyperintensity at the left temporal convexity may represent dural thickening and/or chronic subdural hematoma or hematohygroma. No intrinsic T1 shortening or hyperattenuation on prior CT to suggest recent hemorrhage. Punctate susceptibility blooming within the central medulla is nonspecific though may represent a chronic microhemorrhage. 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 The major arterial flow voids of the skullbase are preserved. Hyperostosis frontalis interna. The globes are symmetric. Mild paranasal sinus mucosal thickening. Trace right mastoid fluid. IMPRESSION: 1. No acute infarction or intracranial mass effect. 2. 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 3. Very shallow FLAIR hyperintensity at the left temporal convexity may represent dural thickening and/or chronic subdural hematoma or hematohygroma. No intrinsic T1 shortening, or hyperattenuation on prior CT, to suggest recent hemorrhage. 4. 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 No evidence for recent lesional hemorrhage. 5. Moderate chronic microvascular ischemic changes. 6. [id number] enlargement of the supratentorial ventricular system out of proportion to the degree of cerebral sulcal prominence may be secondary to central predominant volume loss, though raises the possibility of normal-pressure hydrocephalus in an appropriate clinical setting. Dictated by Janes Jarvis MD @ 12/28/2022 1:31:44 PM (Electronically Signed)
--- NOTE | 2022-12-28 10:32 | P.IMPN_ITS ---
Progress Note: A&P Assessment and plan (1) Sepsis: Problem details: Improved with fluids and ceftriaxone Status: Acute (2) Urinary tract infection: Problem details: Likely source for sepsis. Cultures pending. Continue ceftriaxone. Status: Acute (3) AMS (altered mental status): Problem details: Very sleepy. Not oriented. Difficult to arouse. Not receiving opioid pain medicine. Head injury and sepsis on this admission. Possible delirium. Possible concussion. Obtain brain MRI. Status: Acute (4) Forehead contusion: Problem details: Possible concussion verses delirium from sepsis Status: Acute (5) Diabetes mellitus: Problem details: Long-acting and sliding scale insulin. Hold metformin and glipizide while acutely ill Status: Acute (6) Weakness: Problem details: Acute on chronic. PT and OT to assess. Currently very disabled related to mental status changes and physical weakness Status: Acute (7) Fall: Problem details: Fall with head injury. Details unknown. Recurrent problem. Status: Acute (8) BRITANY on CPAP: Status: Acute (9) Urinary incontinence: Problem details: Due to altered mental status hold ditropan. Bladder scan shows 91 mL of urine. Does not appear to have bladder outlet obstruction troubles. Likely urge incontinence and stress incontinence. Status: Acute (10) Spinal stenosis: Problem details: MRI 12/19/2022 shows central canal and neural foraminal stenosis at multiple levels Status: Acute (11) Forehead laceration: Problem details: Appears to be healing appropriately. Continue to monitor Status: Acute (12) Venous insufficiency of both lower extremities: Problem details: Support hose. Has declined support does in the past Status: Acute Plan Continue in hospital for evaluation and management of urinary tract infection and altered mental status Time Spent With Patient Total time spent: Total time spent today is 40 minutes, 30 minutes in coordination of care and discussing with other providers ongoing evaluation management Subjective Date Seen: 12/28/22 Interval history: 82-year-old female seen in followup of hospitalization after a fall with sepsis, altered mental status, profound weakness, head injury. Altered mental status has not improved overnight. There was concern she could altered mental status secondary to sepsis, concussion, inadequate sleep. Today she remains unable to carry on a conversation. She will follow simple commands and answer simple questions only. She does not respond to questions about orientation at all. She is unable to feed herself breakfast which is on the tray in front of her. She does arouse to voice but immediately closes her eyes and appears to fall asleep. Exam Narrative: Exam Narrative: Mental status as noted above. Head is notable for improving appearance of the bruise and laceration of her left forehead. Eyes remain normal. Pupils are equal round reactive to light. Extraocular movements are full. Oropharynx with small airway. Neck is supple without mass or adenopathy. There is no facial asymmetry. Respirations are clear to auscultation. Cardiovascular: S1, S2, regular rate and rhythm. Abdomen: Bowel sounds active. Abdomen is soft without tenderness. She moves all 4 extremities well. She is slow to follow commands but does accurately follow simple commands. She gives poor effort with strength testing but is symmetric in upper and lower extremities. Well perfused in her extremities. Const: Vital Signs, click to edit/add: Vital Signs - 24 hr 12/27/22 16:30 12/27/22 15:00 12/27/22 15:00 Temperature 98.5 F Pulse Rate 67 Pulse Rate [Bilate ral Dorsalis Pedis ] Pulse Rate [Pulse Oximeter] 69 69 Respiratory Rate 22 22 Blood Pressure [Le ft Arm] 117/55 L Pulse Oximetry [facility] 12/27/22 19:00 12/27/22 23:00 12/27/22 23:00 Temperature 98 F 98.4 F Pulse Rate Pulse Rate [Bilate ral Dorsalis Pedis ] 80 80 Pulse Rate [Pulse Oximeter] 101 H 101 H Respiratory Rate 16 18 18 Blood Pressure [Le ft Arm] 130/67 148/88 H Pulse Oximetry 96 93 [facility] 12/28/22 01:47 12/28/22 02:47 12/28/22 07:00 Temperature 98.2 F Pulse Rate 99 Pulse Rate [Bilate ral Dorsalis Pedis ] Pulse Rate [Pulse Oximeter] 99 103 H Respiratory Rate 18 20 Blood Pressure [Le ft Arm] 149/90 H Pulse Oximetry 93 [facility] 12/28/22 07:00 12/28/22 07:00 Temperature 97.6 F Pulse Rate 103 H Pulse Rate [Bilate ral Dorsalis Pedis ] Pulse Rate [Pulse Oximeter] 103 H Respiratory Rate 20 Blood Pressure [Le ft Arm] 160/89 H Pulse Oximetry 96 [facility] Documenting provider has reviewed patient's vital signs: yes
[2022-12-28] MEDS: ACETAMINOPHEN 325 MG TABLET 975 MG PO ×2 (13:15→22:31)
--- NOTE | 2022-12-28 14:18 | PC.NURSE ---
PATIENT ALERT TO SELF, AWARE OF SITUATION, AWAKES TO VOICE, VERY SLEEPY THIS MORNING, PATIENT STATES IM JUST TIRED, ANSWERS QUESTIONS APPROPRIATELY, MD AWARE OF PATIENT BEING MORE TIRED TODAY, MRI COMPLETE PER MD ORDER, TOLERATING REGULAR DIET ALTHOUGH HAD TO BE FED THIS MORNING, TELE SINUS TACH/NSR WITH 1ST DEGREE HB, LACERATION OVER EYE INTACT WITH GLUE, ROB WRAPS TO BLE, INITIALLY DECLINING PAIN THIS MORNING, LATER REPORTING PAIN IN RIGHT ANKLE AND BACK FOR WHICH PATIENT STATES ARE CHRONIC PRN TYLENOL GIVEN WITH SOME RELIEF.
--- NOTE | 2022-12-28 16:14 | PC.SOCIAL ---
Discharge planning- Phone call to pt's son, Jayy, to discuss discharge plans. Jayy informed that pt is currently residing at [facility], but he understands that pt may need a higher level of care. Informed that pt was getting an MRI of the brain this afternoon. Informed that PT and OT will assess pt this weekend as pt is currently transferring with an EZ stand. PT was not able to assess today due to pt refusal. Pt is not ready for discharge yet. Informed pt's son that social work will be in contact with him on Saturday to develop a discharge plan when recommendations are made. Social work will follow up as necessary.
[2022-12-28] MEDS: ATORVASTATIN 10 MG TABLET 20 MG PO (20:37)
[2022-12-28] MEDS: MELATONIN 3 MG TABLET PO (22:31)
--- NOTE | 2022-12-28 22:47 | PC.NURSE ---
Shift [id number]- Patient is up to chair and feeding herself this afternoon. She is sleepy on and off throughout shift. Uses EZ stand to transfer. Pillows used for offloading while in bed. She is alert and oriented 2/4. PRN tylenol given for back pain. She is incontinent- Pericares provided. Laceration above eye is bruised, slightly swollen, glued- still well-approximated.
[2022-12-29] VITALS (9 sets, daily range): BP systolic 131–178; BP diastolic 71–98; PULSE 75–86; RESP 18; TEMP 36.4–37.1; O2SAT 93–95
[2022-12-29] MEDS: cefTRIAXone 2 GM in 0.9 % SODIUM CHLORIDE Mini-bag 100 ML IVPB (04:24)
[2022-12-29] MEDS: 0.9 % SODIUM CHLORIDE 250 ml IV (04:29)
[2022-12-29 06:04] LABS: Basophils Absolute Auto 0.03 K/uL (0.00-0.30); Basophils Percent Auto 0.3 % (0.0-3.0); Eosinophils Absolute Auto 0.26 K/uL (0.00-0.50); Eosinophils Percent Auto 2.8 % (0.0-7.0); Hematocrit 36.4 % (33.0-51.0); Hemoglobin* 11.6 gm/dL (12.0-16.0); Immature Granulocytes Abs Auto 0.07 K/uL (0.00-0.30); Immature Granulocytes Pct Auto 0.8 %; Lymphocytes Percent Auto 16.5 % (20-44); Mean Corpuscular HGB Conc 32 gm/dL (32-36); Mean Corpuscular Hemoglobin 32 pg (26-34); Mean Corpuscular Volume 99 fL (80-100); Monocytes Percent Auto 11.1 % (0.0-11.0); Neutrophils Absolute Auto 6.33 K/uL (1.7-7.0); Neutrophils Percent Auto 68.5 % (42.0-72.0); Platelet Count* 202 K/uL (140-440); RDW Coefficient of Variation % 11.7 % (11.5-15.5); Red Blood Count 3.67 m/uL (4.00-5.20); White Blood Count* 9.24 K/uL (4.50-11.00)
[2022-12-29 06:07] LABS: Slide Review Reflex No
[2022-12-29 06:12] LABS: Chloride* 105 mmol/L (96-114); Potassium* 3.5 mmol/L (3.6-5.1); Sodium* 138 mmol/L (135-149)
[2022-12-29 06:15] LABS: Blood Urea Nitrogen* 15 mg/dL (7-30); Calcium* 8.3 mg/dL (8.4-10.6); Carbon Dioxide* 28 mmol/L (20-32); Creatinine* 0.7 mg/dL (0.5-1.5); Est. Creatinine Clearance* 34.64; Estimated Glomerular Filt Rate 85 ml/min; Glucose* 161 mg/dL (60-115)
[2022-12-29] MEDS: LIDOCAINE 5% PATCH 1 PATCH TRANSDERMA (06:34)
--- NOTE | 2022-12-29 06:35 | PC.NURSE ---
Shift note: Pt has been in bed throughout the shift. Turn and reposition every 2hours and brief changed 1x tonight. Pt only complained of pain during reposition and changes. Oriented to self only. Pt had adequate sleep. Vitally stable.
[2022-12-29] MEDS: DULOXETINE 30 MG CAPSULE DR 60 MG PO (09:09)
[2022-12-29] MEDS: cephALEXin 500 MG CAPSULE PO ×3 (09:10→21:02)
[2022-12-29] MEDS: ACETAMINOPHEN 325 MG TABLET 975 MG PO ×2 (09:10→19:09)
[2022-12-29] MEDS: buPROPion XL 150 MG TABLET 300 MG PO (09:10)
[2022-12-29] MEDS: METFORMIN 500 MG TABLET PO ×2 (09:11→21:02)
[2022-12-29] MEDS: IRBESARTAN 150 MG TABLET 75 MG PO (09:11)
[2022-12-29] MEDS: VERAPAMIL HCL 240 MG ER TABLET PO (09:12)
[2022-12-29] MEDS: SODIUM CHLORIDE 0.9 % (FLUSH) 10 ML SYRINGE 5 ML IVF ×2 (09:12→21:02)
--- NOTE | 2022-12-29 13:43 | PM.IMPN1 ---
Progress Note: A&P Assessment and plan (1) Sepsis: Problem details: Improved with fluids and ceftriaxone. Culture growing E coli sensitive to cephalosporins Status: Acute (2) Urinary tract infection: Problem details: Likely source for sepsis. Improving. Switched to oral Keflex. Status: Acute (3) AMS (altered mental status): Problem details: Marked improvement in mental status. Brain MRI obtained yesterday showed chronic changes multiple findings but no acute abnormality. Status: Acute (4) Forehead contusion: Problem details: Bruising laceration are healing. Concussion symptoms improved Status: Acute (5) Diabetes mellitus: Problem details: Long-acting and sliding scale insulin. Fairly good blood sugar control with insulin. Hold metformin and glipizide while acutely ill Status: Acute (6) Weakness: Problem details: Acute on chronic. Improved today with improvement in mental status. PT and OT to assess. Currently very disabled related to mental status changes and physical weakness Status: Acute (7) Fall: Problem details: Fall with head injury. Details unknown. Recurrent problem. Status: Acute (8) BRITANY on CPAP: Status: Acute (9) Urinary incontinence: Problem details: Due to altered mental status hold ditropan. Bladder scan shows 91 mL of urine. Does not appear to have bladder outlet obstruction troubles. Likely urge incontinence and stress incontinence. Status: Acute (10) Spinal stenosis: Problem details: MRI 12/19/2022 shows central canal and neural foraminal stenosis at multiple levels Status: Acute (11) Forehead laceration: Problem details: Appears to be healing appropriately. Continue to monitor Status: Acute (12) Venous insufficiency of both lower extremities: Problem details: Support hose. Has declined support hose in the past. Tolerating elastic bandage compression Status: Acute (13) Bacteremia: Problem details: 1 of 2 blood cultures on admission have turned positive for Gram-positive cocci in clusters. ? Contaminant verses invasive staph infection. Pending culture results will initiate vancomycin Status: Acute Plan Continue in hospital for treatment of infections, management of altered mental status, appropriate safe discharge plan. Time Spent With Patient Total time spent: Total time spent today is 35 minutes, 25 minutes in coordination of care discussing with patient other providers ongoing evaluation management of infections and altered mental status Subjective Date Seen: 12/29/22 Interval history: 82-year-old female seen in followup of sepsis with altered mental status and urinary tract infection. For last 2 days she has been somnolent, difficult to arouse and unable to give significant information about recent events are current symptoms. Today she is more alert. She is able to carry on an appropriate conversation.. She made better progress with physical therapy as well. She is able to feed herself a meal for the 1st time since being here. She has no concerns today. Exam Narrative: Exam Narrative: She is alert and awake. She is oriented to being in the hospital. She does recall some of the events leading up to her hospital stay. Speech is fluent. Oropharynx with small airway. No facial asymmetry. Respirations are clear to auscultation. Cardiovascular: S1, S2, regular rate and rhythm. No murmur gallop or rub. Abdomen: Bowel sounds active. Abdomen is soft without tenderness or mass. Extremities with fairly severe chronic bilateral lymphedema. No open ulcers or erythema. She moves all 4 extremities well. Const: Vital Signs, click to edit/add: Vital Signs - 24 hr 12/28/22 16:00 12/28/22 17:46 12/28/22 18:43 Temperature 97.4 F L 98.1 F Pulse Rate 65 Pulse Rate [Pulse Oximeter] 67 75 Respiratory Rate 18 18 Blood Pressure [Le ft Arm] 113/53 L 134/74 Blood Pressure [Ri ght Arm] Pulse Oximetry 93 93 Oxygen Delivery Me thod Room Air Room Air 12/28/22 23:00 12/28/22 23:00 12/29/22 04:33 Temperature 98.3 F 98.3 F Pulse Rate 85 Pulse Rate [Pulse Oximeter] 84 86 Respiratory Rate 18 18 Blood Pressure [Le ft Arm] 143/78 H 153/90 H Blood Pressure [Ri ght Arm] Pulse Oximetry 94 93 Oxygen Delivery Me thod Room Air Room Air 12/29/22 08:23 12/29/22 08:21 12/29/22 09:00 Temperature 98.7 F Pulse Rate Pulse Rate [Pulse Oximeter] 83 Respiratory Rate 18 18 Blood Pressure [Le ft Arm] 155/80 H 178/98 H Blood Pressure [Ri ght Arm] Pulse Oximetry 94 Oxygen Delivery Me thod Room Air 12/29/22 08:11 12/29/22 11:00 Temperature 97.6 F Pulse Rate 80 Pulse Rate [Pulse Oximeter] 75 Respiratory Rate 18 Blood Pressure [Le ft Arm] Blood Pressure [Ri ght Arm] 141/73 H Pulse Oximetry 94 Oxygen Delivery Me thod Room Air Documenting provider has reviewed patient's vital signs: yes Labs Labs: Laboratory Results - last 24 hr 12/29/22 12/29/22 05:49 05:49 WBC 9.24 RBC 3.67 L Hgb 11.6 L Hct 36.4 MCV 99 MCH 32 MCHC 32 RDW Coeff of Nicko 11.7 Plt Count 202 Neut % (Auto) 68.5 Lymph % (Auto) 16.5 L [place] % (Auto) 11.1 H Eos % (Auto) 2.8 Baso % (Auto) 0.3 Neut # (Auto) 6.33 Lymph # (Auto) 1.50 [place] # (Auto) 1.00 H Eos # (Auto) 0.26 Baso # (Auto) 0.03 Sodium 138 Potassium 3.5 L Chloride 105 Carbon Dioxide 28 BUN 15 Creatinine 0.7 Estimated Creat Clear 34.64 Estimated GFR 85 Glucose 161 H Calcium 8.3 L
--- NOTE | 2022-12-29 15:39 | PC.NURSE ---
Patient up w/EZ stand, tolerated well. Lidocaine patch to left low back intact. LS clear, afebrile. Blood pressures (BP) elevated w/first time sitting up on bedside, also dizzy (see vitals). MD updated, no new orders. BP has since normalized. Pt denied pain other than when ROB wraps initially applied to B/L LE's. Blood cultures came back positive from 12/27/22, vancomycin IV initiated per Dr. Painter. Pt. c/o discomfort to IV site R wrist, but still flushed w/saline. Rate decreased to 150ml/hr, more tolerable. After approximately 25min, pt. noted site more bothersome. RN attempted to flush, saline felt fine per patient, no infiltration noted. RN tried to place new IV on left arm, unable to place. Requested another nurse to try new site. Report given to CHRISTA Cheek.
[2022-12-29] MEDS: ATORVASTATIN 10 MG TABLET 20 MG PO (21:02)
[2022-12-30] VITALS (7 sets, daily range): BP systolic 129–156; BP diastolic 67–88; PULSE 71–91; RESP 18–20; TEMP 36.3–36.7; O2SAT 94–96
--- NOTE | 2022-12-30 04:59 | PC.NURSE ---
Shift note: Pt is doing well and has been in bed throughout the shift. Pt asked leg wrap to be removed for discomfort and was removed at 0230. No pain reported, however, pt complained of nausea but refused medication for it.
[2022-12-30 07:00] LABS: Basophils Absolute Auto 0.04 K/uL (0.00-0.30); Basophils Percent Auto 0.5 % (0.0-3.0); Eosinophils Absolute Auto 0.27 K/uL (0.00-0.50); Eosinophils Percent Auto 3.2 % (0.0-7.0); Hematocrit 36.4 % (33.0-51.0); Hemoglobin* 11.7 gm/dL (12.0-16.0); Immature Granulocytes Abs Auto 0.06 K/uL (0.00-0.30); Immature Granulocytes Pct Auto 0.7 %; Lymphocytes Absolute Auto 2.19 K/uL (0.90-2.90); Lymphocytes Percent Auto 25.7 % (20-44); Mean Corpuscular HGB Conc 32 gm/dL (32-36); Mean Corpuscular Hemoglobin 32 pg (26-34); Mean Corpuscular Volume 99 fL (80-100); Monocytes Percent Auto 10.9 % (0.0-11.0); Neutrophils Absolute Auto 5.02 K/uL (1.7-7.0); Platelet Count* 230 K/uL (140-440); RDW Coefficient of Variation % 11.6 % (11.5-15.5); Red Blood Count 3.69 m/uL (4.00-5.20); White Blood Count* 8.51 K/uL (4.50-11.00)
[2022-12-30] MEDS: LIDOCAINE 5% PATCH 1 PATCH TRANSDERMA (07:01)
[2022-12-30 07:04] LABS: Slide Review Reflex No
[2022-12-30 07:13] LABS: Chloride* 107 mmol/L (96-114)
[2022-12-30 07:14] LABS: Potassium* 3.6 mmol/L (3.6-5.1); Sodium* 138 mmol/L (135-149)
[2022-12-30 07:16] LABS: Creatinine* 0.7 mg/dL (0.5-1.5); Est. Creatinine Clearance* 34.64; Estimated Glomerular Filt Rate 85 ml/min
[2022-12-30 07:17] LABS: Blood Urea Nitrogen* 17 mg/dL (7-30); Calcium* 8.6 mg/dL (8.4-10.6); Carbon Dioxide* 25 mmol/L (20-32); Glucose* 118 mg/dL (60-115)
[2022-12-30] MEDS: ACETAMINOPHEN 325 MG TABLET 975 MG PO (09:37)
[2022-12-30] MEDS: VERAPAMIL HCL 240 MG ER TABLET PO (09:38)
[2022-12-30] MEDS: IRBESARTAN 150 MG TABLET 75 MG PO (09:46)
[2022-12-30] MEDS: buPROPion XL 150 MG TABLET 300 MG PO (09:46)
[2022-12-30] MEDS: DULOXETINE 30 MG CAPSULE DR 60 MG PO (09:47)
[2022-12-30] MEDS: cephALEXin 500 MG CAPSULE PO ×3 (09:48→19:54)
[2022-12-30] MEDS: METFORMIN 500 MG TABLET PO ×2 (09:48→19:54)
[2022-12-30] MEDS: SODIUM CHLORIDE 0.9 % (FLUSH) 10 ML SYRINGE 5 ML IVF ×2 (09:48→19:54)
--- NOTE | 2022-12-30 12:55 | PM.IMPN1 ---
Progress Note: A&P Assessment and plan (1) Sepsis: Problem details: Improved with fluids and ceftriaxone. Culture growing E coli sensitive to cephalosporins Status: Acute (2) Urinary tract infection: Problem details: Likely source for sepsis. Improving. Switched to oral Keflex. Status: Acute (3) AMS (altered mental status): Problem details: Clinically appears to be hypoactive delerium. Marked improvement in mental status the past 2 days. Brain MRI showed chronic changes multiple findings but no acute abnormality. Status: Acute (4) Forehead contusion: Problem details: Bruising laceration are healing. Concussion symptoms improved Status: Acute (5) Diabetes mellitus: Problem details: Long-acting and sliding scale insulin. Fairly good blood sugar control with insulin. Metformin resumed. Status: Acute (6) Weakness: Problem details: Acute on chronic. Improved today with improvement in mental status. PT and OT to assess. Currently very disabled related to mental status changes and physical weakness Status: Acute (7) Fall: Problem details: Fall with head injury. Details unknown. Recurrent problem. Status: Acute (8) BRITANY on CPAP: Status: Acute (9) Urinary incontinence: Problem details: Due to altered mental status hold ditropan. Bladder scan shows 91 mL of urine. Does not appear to have bladder outlet obstruction troubles. Likely urge incontinence and stress incontinence. Status: Acute (10) Spinal stenosis: Problem details: MRI 12/19/2022 shows central canal and neural foraminal stenosis at multiple levels Status: Acute (11) Forehead laceration: Problem details: Appears to be healing appropriately. Continue to monitor Status: Acute (12) Venous insufficiency of both lower extremities: Problem details: Support hose. Has declined support hose in the past. Tolerating elastic bandage compression Status: Acute (13) Bacteremia: Problem details: 1 of 2 blood cultures on admission have turned positive for Gram-positive cocci in clusters. ? Contaminant verses invasive staph infection. Pending culture results will initiate vancomycin. No other obvious foci of infection Status: Acute Plan Continue in hospital pending culture results. Continue IV antibiotic for bacteremia. Continue therapy for strengthening. Likely will need residential facility placement for rehab. Time Spent With Patient Total time spent: Total time spent today is 45 minutes, 30 minutes in coordination of care and discussing with patient and family ongoing evaluation management of her infections, dementia, delirium Subjective Date Seen: 12/30/22 Interval history: 82-year-old female seen in followup of hospitalization for altered mental status/hypoactive delirium, urinary tract infection, head injury/concussion. Patient continues to have some improvement in her mental status. She does not recall recent events or my explanations from yesterday about the series of events leading to her hospitalization. She is aware she is in the hospital today. She is also seen with her youngest son today. Her oldest son who is more involved medical care is in [place]. She has no specific concerns today. Exam Narrative: Exam Narrative: She is alert and oriented to being in the hospital. Bruise and laceration on her left forehead are healing nicely. She discovered a small chip on 1 of her teeth today presumably after her fall. Respirations are clear to auscultation. Cardiovascular: S1, S2, regular rate and rhythm. Abdomen: Bowel sounds active. Abdomen is soft without tenderness. She has diffuse tenderness of both lower extremities with moderate lymphedema. No erythema or open ulcers. Const: Vital Signs, click to edit/add: Vital Signs - 24 hr 12/29/22 15:00 12/29/22 15:00 12/29/22 19:00 Temperature 98.8 F 98.3 F Pulse Rate [Pulse Oximeter] 86 86 82 Respiratory Rate 18 18 18 Blood Pressure [Le ft Arm] 131/78 Blood Pressure [Ri ght Arm] Pulse Oximetry 95 95 Oxygen Delivery Me thod Room Air Room Air 12/29/22 23:00 12/29/22 23:00 12/30/22 02:09 Temperature 98.1 F 97.5 F L Pulse Rate [Pulse Oximeter] 79 91 Respiratory Rate 18 18 18 Blood Pressure [Le ft Arm] Blood Pressure [Ri ght Arm] 144/71 H 156/83 H Pulse Oximetry 94 94 Oxygen Delivery Me thod Room Air Room Air 12/30/22 09:00 12/30/22 09:00 12/30/22 11:00 Temperature 97.3 F L Pulse Rate [Pulse Oximeter] 85 Respiratory Rate 18 18 20 Blood Pressure [Le ft Arm] 152/88 H Blood Pressure [Ri ght Arm] Pulse Oximetry 95 Oxygen Delivery Me thod Room Air Room Air Documenting provider has reviewed patient's vital signs: yes Labs Labs: Laboratory Results - last 24 hr 12/30/22 12/30/22 05:37 05:37 WBC 8.51 RBC 3.69 L Hgb 11.7 L Hct 36.4 MCV 99 MCH 32 MCHC 32 RDW Coeff of Nicko 11.6 Plt Count 230 Neut % (Auto) 59.0 Lymph % (Auto) 25.7 [place] % (Auto) 10.9 Eos % (Auto) 3.2 Baso % (Auto) 0.5 Neut # (Auto) 5.02 Lymph # (Auto) 2.19 [place] # (Auto) 0.90 Eos # (Auto) 0.27 Baso # (Auto) 0.04 Sodium 138 Potassium 3.6 Chloride 107 Carbon Dioxide 25 BUN 17 Creatinine 0.7 Estimated Creat Clear 34.64 Estimated GFR 85 Glucose 118 H Calcium 8.6
--- NOTE | 2022-12-30 15:28 | PC.NURSE ---
Patient up initially w/EZ stand, then w/walker and Ax2, pivoting from chair to commode and bed. 2 bowel movements today, both soft, 1 incontinent onto floor. Staff noted increased confusion at this point as well, slightly clearing after BM. Pt. pulled IV out from R arm/wrist this shift just prior to scheduled Vancomycin dose. After multiple IV attempts, CHRISTA Zabala able to place 22# in left thumb. Pt. became teary stating I just don't want to , during this time. Vanco currently running. Continues to have periods of increased confusion. Voiding adequately w/some incontinence.
--- NOTE | 2022-12-30 18:57 | PC.NURSE ---
Shift [id number]- Patient denies pain. She moves with walker, gait belt and assist of 1-2. 1 large very soft stool in BSC. She is incontinent of urine. Legs are wrapped. She is confused- alert and oriented 2/4 to self and date, not situation or place.
[2022-12-30] MEDS: ATORVASTATIN 10 MG TABLET 20 MG PO (19:54)
[2022-12-31] MEDS: LIDOCAINE 5% PATCH 1 PATCH TRANSDERMA (03:57)
[2022-12-31 04:00] VITALS: BP 146/83; PULSE 84; RESP 18; TEMP 36.1; O2SAT 96
--- NOTE | 2022-12-31 05:13 | PC.NURSE ---
Shift note 19-: Pt alert w/ baseline confusion although able to answer basic questions appropriately. Up to BSC w/ A of 1 and walker, appears to be getting stronger, denies any pain. Afebrile.
[2022-12-31 07:00] VITALS: BP 166/97; PULSE 86; RESP 16; TEMP 36.4; O2SAT 96
[2022-12-31 07:04] LABS: Basophils Absolute Auto 0.03 K/uL (0.00-0.30); Basophils Percent Auto 0.4 % (0.0-3.0); Eosinophils Percent Auto 3.7 % (0.0-7.0); Hematocrit 36.6 % (33.0-51.0); Hemoglobin* 11.6 gm/dL (12.0-16.0); Immature Granulocytes Abs Auto 0.01 K/uL (0.00-0.30); Immature Granulocytes Pct Auto 0.1 %; Lymphocytes Absolute Auto 1.69 K/uL (0.90-2.90); Lymphocytes Percent Auto 21.1 % (20-44); Mean Corpuscular HGB Conc 32 gm/dL (32-36); Mean Corpuscular Hemoglobin 32 pg (26-34); Mean Corpuscular Volume 100 fL (80-100); Neutrophils Absolute Auto 5.11 K/uL (1.7-7.0); Neutrophils Percent Auto 63.7 % (42.0-72.0); Platelet Count* 248 K/uL (140-440); RDW Coefficient of Variation % 11.6 % (11.5-15.5); Red Blood Count 3.68 m/uL (4.00-5.20); White Blood Count* 8.02 K/uL (4.50-11.00)
[2022-12-31 07:14] LABS: Slide Review Reflex No
[2022-12-31 07:16] LABS: Chloride* 108 mmol/L (96-114); Potassium* 3.4 mmol/L (3.6-5.1); Sodium* 139 mmol/L (135-149)
[2022-12-31 07:19] LABS: Carbon Dioxide* 26 mmol/L (20-32); Creatinine* 0.7 mg/dL (0.5-1.5); Est. Creatinine Clearance* 34.64; Estimated Glomerular Filt Rate 85 ml/min
[2022-12-31 07:20] LABS: Blood Urea Nitrogen* 16 mg/dL (7-30); Calcium* 8.6 mg/dL (8.4-10.6); Glucose* 126 mg/dL (60-115)
[2022-12-31 07:43] LABS: Magnesium* 1.4 mg/dL (1.5-2.6)
[2022-12-31] MEDS: POTASSIUM BICARB 25 MEQ EFFERVESCENT TAB PO (08:14)
[2022-12-31] MEDS: cephALEXin 500 MG CAPSULE PO ×3 (09:14→20:19)
[2022-12-31] MEDS: VERAPAMIL HCL 240 MG ER TABLET PO (09:14)
[2022-12-31] MEDS: buPROPion XL 150 MG TABLET 300 MG PO (09:14)
[2022-12-31] MEDS: METFORMIN 500 MG TABLET PO ×2 (09:14→20:19)
[2022-12-31] MEDS: DULOXETINE 30 MG CAPSULE DR 60 MG PO (09:14)
[2022-12-31] MEDS: IRBESARTAN 150 MG TABLET 75 MG PO (09:15)
[2022-12-31] MEDS: SODIUM CHLORIDE 0.9 % (FLUSH) 10 ML SYRINGE 5 ML IVF ×2 (09:17→20:20)
[2022-12-31 11:00] VITALS: BP 159/90; PULSE 82; RESP 16; TEMP 36.8; O2SAT 96
--- NOTE | 2022-12-31 13:35 | P.IMPN_ITS ---
Progress Note: A&P Assessment and plan (1) Sepsis: Problem details: Improved with fluids and ceftriaxone. Culture growing E coli sensitive to cephalosporins Status: Acute (2) Urinary tract infection: Problem details: Likely source for sepsis. Improving. Switched to oral Keflex. Status: Acute (3) AMS (altered mental status): Problem details: Clinically appears to be hypoactive delerium. Marked improvement in mental status the past 2 days. Brain MRI showed chronic changes multiple findings but no acute abnormality. Today she is alert but disoriented. Status: Acute (4) Forehead contusion: Problem details: Bruising laceration are healing. Concussion symptoms improved Status: Acute (5) Diabetes mellitus: Problem details: Long-acting and sliding scale insulin. Fairly good blood sugar control with insulin. Metformin resumed. Status: Acute (6) Weakness: Problem details: Acute on chronic. Improved today with improvement in mental status. PT and OT to assess. Currently very disabled related to mental status changes and physical weakness Status: Acute (7) Fall: Problem details: Fall with head injury. Details unknown. Recurrent problem. Status: Acute (8) BRITANY on CPAP: Status: Acute (9) Urinary incontinence: Problem details: Due to altered mental status hold ditropan. Bladder scan shows 91 mL of urine. Does not appear to have bladder outlet obstruction troubles. Likely urge incontinence and stress incontinence. Status: Acute (10) Spinal stenosis: Problem details: MRI 12/19/2022 shows central canal and neural foraminal stenosis at multiple levels Status: Acute (11) Forehead laceration: Problem details: Appears to be healing appropriately. Continue to monitor Status: Acute (12) Venous insufficiency of both lower extremities: Problem details: Support hose. Has declined support hose in the past. Tolerating elastic bandage compression Status: Acute (13) Bacteremia: Problem details: 1 of 2 blood cultures on admission have turned positive for Gram-positive cocci in clusters. Appears to be a contaminant. Status: Acute Plan Continue in hospital for management of medical problems pending safe discharge. In this case [facility]. Time Spent With Patient Total time spent: Total time spent today is 40 minutes, 30 minutes in coordination of care discussing with patient other providers ongoing evaluation management of sepsis, delirium, dementia, weakness and disability. Subjective Date Seen: 12/31/22 Interval history: 82-year-old female seen in hospitalization for fall at home with altered mental status and delirium. Initially patient had a hypoactive delirium was hard to arouse. She has been intermittently improved over the last 2 days but today is not oriented to her circumstances. She is alert and awake however. She has no concerns today other than she does not remember any recent events. Exam Narrative: Exam Narrative: Head is healing from her bruise and laceration over her left forehead. Eyes normal. Oropharynx with small airway. Neck is supple without mass or adenopathy. Respirations are clear to auscultation. Cardiovascular: S1, S2, regular rate and rhythm. Abdomen: Bowel sounds active. Abdomen is soft without tenderness. She has bilateral 4+ edema in her lower extremities without erythema. Const: Vital Signs, click to edit/add: Vital Signs - 24 hr 12/30/22 16:30 12/30/22 19:45 12/30/22 23:00 Temperature 98.1 F 97.8 F Pulse Rate [Pulse Oximeter] 80 71 79 Respiratory Rate 18 18 Blood Pressure [Le ft Arm] 130/67 Blood Pressure [Ri ght Arm] 129/73 Pulse Oximetry 94 94 Oxygen Delivery Me thod Room Air Room Air 12/30/22 23:00 12/31/22 04:00 12/31/22 07:00 Temperature 97.5 F L 97.0 F L 97.6 F Pulse Rate [Pulse Oximeter] 79 84 86 Respiratory Rate 20 18 16 Blood Pressure [Le ft Arm] 151/79 H 146/83 H Blood Pressure [Ri ght Arm] 166/97 H Pulse Oximetry 95 96 96 Oxygen Delivery Me thod Room Air Room Air Room Air 12/31/22 07:00 12/31/22 11:00 Temperature 98.3 F Pulse Rate [Pulse Oximeter] 86 82 Respiratory Rate 16 16 Blood Pressure [Le ft Arm] Blood Pressure [Ri ght Arm] 159/90 H Pulse Oximetry 96 Oxygen Delivery Me thod Room Air Documenting provider has reviewed patient's vital signs: yes Labs Labs: Laboratory Results - last 24 hr 12/31/22 12/31/22 05:38 05:38 WBC 8.02 RBC 3.68 L Hgb 11.6 L Hct 36.6 MCV 100 MCH 32 MCHC 32 RDW Coeff of Nicko 11.6 Plt Count 248 Neut % (Auto) 63.7 Lymph % (Auto) 21.1 [place] % (Auto) 11.0 Eos % (Auto) 3.7 Baso % (Auto) 0.4 Neut # (Auto) 5.11 Lymph # (Auto) 1.69 [place] # (Auto) 0.90 Eos # (Auto) 0.30 Baso # (Auto) 0.03 Sodium 139 Potassium 3.4 L Chloride 108 Carbon Dioxide 26 BUN 16 Creatinine 0.7 Estimated Creat Clear 34.64 Estimated GFR 85 Glucose 126 H Calcium 8.6 Magnesium 1.4 L
--- NOTE | 2022-12-31 13:35 | PC.SOCIAL ---
Addendum entered by Yeimy Pastrana [facility] 12/31/22 16:03: Son prefers non-emergency transport for client at time of d/c. Form read to son, verbal signature provided, and shut off worker is setting up transport for 10:00 a.m. Message left for [facility] (Yeimy). No further SW needs at this time. Original Note: Discharge Planning: SW spoke with son (Jayy) this morning regarding PT/OT recommendations for SNF at time of discharge. Son prefers [facility] for rehab but requests confirmation that [facility] is not able to manage pt's care with current recommendation. [facility] RN confirms via telephone that she would prefer a rehab stay for client due to the multiple falls that had occurred for pt at facility. Referral sent to [facility], and they have accepted pt for admission tomorrow before noon if possible and if medically stable. Son will return from [place] late today and be present with pt tomorrow morning. PAS complete: [id number]. Message left for son with updated information re: [facility] acceptance. Transportation to be arranged with non-emergency ambulance tomorrow morning if necessary before noon. SW will continue to follow for d/c planning.
[2022-12-31 15:00] VITALS: BP 169/88; PULSE 89; RESP 16; TEMP 36.9; O2SAT 96
--- NOTE | 2022-12-31 18:50 | PC.NURSE ---
End of Shift: Patient confused and cooperative. Patient vitally stable, lungs clear, BS WNL, IV SL. Patient 1 assist, walker, gb, to toilet. Patient denies pain. Patient continent and incontinent of bowl and bladder, Patient urinating and has had 5-6 mod loose stools. Patient tolerating regular diet. Lower extremities wrapped with sharath bandages.
[2022-12-31 19:00] VITALS: BP 167/93; PULSE 84; RESP 16; TEMP 36.4; O2SAT 95
[2022-12-31] MEDS: ATORVASTATIN 10 MG TABLET 20 MG PO (20:19)
[2022-12-31 23:00] VITALS: BP 159/81; PULSE 79; PULSE 84; RESP 16; TEMP 36.6; O2SAT 95
[2023-01-01 02:39] VITALS: BP 153/84; PULSE 77; RESP 16; TEMP 36.4; O2SAT 95
[2023-01-01] MEDS: LIDOCAINE 5% PATCH 1 PATCH TRANSDERMA (04:27)
--- NOTE | 2023-01-01 04:53 | PC.NURSE ---
Shift note: Patient is doing well, however, still appears confuse and disoriented. Bladder incontinent noted. No s/s of pain. Pt requested for the leg wrap to be removed at 0030. Vitally stable except high systolic Bp.
[2023-01-01 07:00] VITALS: BP 165/89; PULSE 88; RESP 18; TEMP 36.5; O2SAT 96
[2023-01-01 07:04] LABS: Basophils Absolute Auto 0.04 K/uL (0.00-0.30); Basophils Percent Auto 0.5 % (0.0-3.0); Eosinophils Absolute Auto 0.29 K/uL (0.00-0.50); Eosinophils Percent Auto 3.5 % (0.0-7.0); Hematocrit 37.2 % (33.0-51.0); Hemoglobin* 11.8 gm/dL (12.0-16.0); Immature Granulocytes Abs Auto 0.02 K/uL (0.00-0.30); Immature Granulocytes Pct Auto 0.2 %; Lymphocytes Absolute Auto 2.09 K/uL (0.90-2.90); Lymphocytes Percent Auto 25.6 % (20-44); Mean Corpuscular HGB Conc 32 gm/dL (32-36); Mean Corpuscular Hemoglobin 32 pg (26-34); Mean Corpuscular Volume 99 fL (80-100); Monocytes Percent Auto 9.3 % (0.0-11.0); Neutrophils Absolute Auto 4.97 K/uL (1.7-7.0); Neutrophils Percent Auto 60.9 % (42.0-72.0); Platelet Count* 273 K/uL (140-440); RDW Coefficient of Variation % 11.7 % (11.5-15.5); Red Blood Count 3.75 m/uL (4.00-5.20); White Blood Count* 8.17 K/uL (4.50-11.00)
[2023-01-01 07:06] LABS: Slide Review Reflex No
[2023-01-01 07:17] LABS: Chloride* 107 mmol/L (96-114); Potassium* 3.5 mmol/L (3.6-5.1); Sodium* 140 mmol/L (135-149)
[2023-01-01 07:20] LABS: Blood Urea Nitrogen* 18 mg/dL (7-30); Calcium* 8.9 mg/dL (8.4-10.6); Carbon Dioxide* 28 mmol/L (20-32); Creatinine* 0.8 mg/dL (0.5-1.5); Est. Creatinine Clearance* 34.64; Estimated Glomerular Filt Rate 73 ml/min; Glucose* 127 mg/dL (60-115)
[2023-01-01] MEDS: cephALEXin 500 MG CAPSULE PO (08:37)
[2023-01-01] MEDS: METFORMIN 500 MG TABLET PO (08:37)
[2023-01-01] MEDS: buPROPion XL 150 MG TABLET 300 MG PO (08:37)
[2023-01-01] MEDS: IRBESARTAN 150 MG TABLET 75 MG PO (08:38)
[2023-01-01] MEDS: DULOXETINE 30 MG CAPSULE DR 60 MG PO (08:38)
[2023-01-01] MEDS: VERAPAMIL HCL 240 MG ER TABLET PO (08:41)
--- NOTE | 2023-01-01 08:58 | PM.DS1 ---
DS: Providers Provider Date Seen: 01/01/23 Date of admission: 12/27/22 09:03 Primary care physician: Joaquina Cartwright DO Admitting Clinician: Wang Horner MD Attending Physician on discharge: Artemio Painter MD Date of Discharge: 01/01/23 DS: Diagnosis Discharge Diagnosis (1) Sepsis: Status: Acute Problem details: Sepsis present on admission. Secondary to urinary tract infection. Resolved with fluids and IV antibiotics. (2) Urinary tract infection: Status: Acute Problem details: Likely source for sepsis. Culture growing pansensitive E coli. Initially treated with ceftriaxone than cephalexin on discharge (3) AMS (altered mental status): Status: Acute Problem details: Clinically appears to be hypoactive delerium. Relatively severe hypoactive delirium the 1st 2 days in the hospital. Improved but still occasional symptoms over the last few days. (4) Forehead contusion: Status: Acute Problem details: Bruising and laceration are healing. Concussion symptoms improved (5) Diabetes mellitus: Status: Acute Problem details: Long-acting insulin. Fairly good blood sugar control with insulin and metformin. (6) Weakness: Status: Acute Problem details: Acute on chronic. Improved today with improvement in mental status. PT and OT to assess. Currently very disabled related to mental status changes and physical weakness. (7) Fall: Status: Acute Problem details: Fall with head injury. Details unknown. Recurrent problem. (8) BRITANY on CPAP: Status: Acute (9) Urinary incontinence: Status: Acute Problem details: Acute on chronic problem. Ditropan was discontinued due to delirium (10) Spinal stenosis: Status: Acute Problem details: MRI 12/19/2022 shows central canal and neural foraminal stenosis at multiple levels (11) Forehead laceration: Status: Acute Problem details: Appears to be healing appropriately. Continue to monitor (12) Venous insufficiency of both lower extremities: Status: Acute Problem details: Support hose. Has declined support hose in the past. Tolerating elastic bandage compression (13) Bacteremia: Status: Acute Problem details: Positive blood culture was contaminant. (14) Dementia: Status: Acute Problem details: [place] on 12/30/2022 is 19/30 DS: Summary Hospital Course Hospital Course: 82-year-old female from [facility] was found down at home with head injury. Initial evaluation included CT of the head and cervical spine which were unremarkable. She was found to have laceration and bruising on her left forehead. Laceration was treated with medical glue. She had marked alteration of mental status. Cause for this was uncertain. Uncertain if this was due to her acute illness with sepsis or a concussion as a sequelae of her head injury. She was known to have cognitive impairment or dementia prior to her fall. Her mental status has improved though she still has fluctuating course with intermittent disorientation and occasional paranoia suggesting that this is in part delirium. At the time of admission she was found to have a urinary tract infection. Cultures have grown pansensitive E coli. She was initially treated with ceftriaxone and then transition to oral cephalexin. Signs and symptoms of sepsis have been improving. Status at Discharge Functional status at discharge: uses cane/walker Overall status at discharge: patient is progressing back to baseline Time Spent with Patient Time attestation: Total time spent providing and/or coordinating discharge services: Time spent: Greater than 30 minutes Exam Narrative: Exam Narrative: She is alert and appears in no distress. Today she is oriented to her circumstances. She does not recall much detail of what has happened in the last 5 days. Respirations are clear to auscultation. Cardiovascular: S1, S2, regular rate and rhythm. Abdomen is soft without tenderness or mass. Bowel sounds are present. Lower extremities with 2 to 3+ edema bilaterally. No erythema. She moves all 4 extremities well. Const: Vital Signs, click to edit/add: Vital Signs - 24 hr 12/31/22 11:00 12/31/22 15:00 12/31/22 15:00 Temperature 98.3 F 98.5 F Pulse Rate [Pulse Oximeter] 82 89 89 Respiratory Rate 16 16 16 Blood Pressure [Le ft Arm] Blood Pressure [Ri ght Arm] 159/90 H 169/88 H Pulse Oximetry 96 96 Oxygen Delivery Me thod Room Air Room Air 12/31/22 19:00 12/31/22 23:00 12/31/22 23:00 Temperature 97.5 F L 98 F Pulse Rate [Pulse Oximeter] 84 84 79 Respiratory Rate 16 16 Blood Pressure [Le ft Arm] Blood Pressure [Ri ght Arm] 167/93 H 159/81 H Pulse Oximetry 95 95 Oxygen Delivery Me thod Room Air Room Air 01/01/23 02:39 01/01/23 07:00 Temperature 97.5 F L 97.7 F Pulse Rate [Pulse Oximeter] 77 88 Respiratory Rate 16 18 Blood Pressure [Le ft Arm] 165/89 H Blood Pressure [Ri ght Arm] 153/84 H Pulse Oximetry 95 96 Oxygen Delivery Me thod Room Air Room Air Documenting provider has reviewed patient's vital signs: yes DS: Data Data Completed and Pending Labs on day of discharge: Labs from last 24 hours 01/01/23 01/01/23 05:53 05:53 WBC 8.17 RBC 3.75 L Hgb 11.8 L Hct 37.2 MCV 99 MCH 32 MCHC 32 RDW Coeff of Nicko 11.7 Plt Count 273 Neut % (Auto) 60.9 Lymph % (Auto) 25.6 [place] % (Auto) 9.3 Eos % (Auto) 3.5 Baso % (Auto) 0.5 Neut # (Auto) 4.97 Lymph # (Auto) 2.09 [place]es # (Auto) 0.80 Eos # (Auto) 0.29 Baso # (Auto) 0.04 Sodium 140 Potassium 3.5 L Chloride 107 Carbon Dioxide 28 BUN 18 Creatinine 0.8 Estimated Creat Clear 34.64 Estimated GFR 73 Glucose 127 H Calcium 8.9 Preliminary micro results at discharge 12/27/22 04:50 Blood Culture - Preliminary Blood Imaging CT Chest/Ab/Pelvis: Radiologist's impression: In the chest, mild dependent areas of scarring are present in both lung bases. No pleural effusion or pulmonary contusion. No pneumothorax. No adenopathy. No traumatic aortic injury. No pleural or pericardial effusion. No trade. No fracture. Degenerative changes. Right shoulder replacement hardware. In the abdomen, the liver parenchyma is within normal limits. Normal spleen. Fatty atrophy of the pancreas. Adrenal glands are normal. Bilateral simple renal cortical cysts measuring up to 3.2 cm. Slight stranding within the central mesenteric fat along with a few scattered subcentimeter lymph nodes representing mild nonspecific mesenteric panniculitis. No free air or abscess. No bowel obstruction. Atherosclerotic disease. No aneurysm. No enlarged lymph nodes. In the pelvis, multilevel degenerative facet arthropathy throughout the lumbar spine with grade 1 degenerative spondylolisthesis of L3 on L4 and L4 on L5. Multilevel vacuum disc phenomenon noted. No evidence of discitis or osteomyelitis. No acute fracture. Bilateral hip replacement hardware. Mild colonic diverticulosis. No diverticulitis. Appendix normal. No enlarged pelvic or inguinal lymph nodes. Visualized bladder appears normal. There is beam hardening artifact. A right ovarian cyst is present measuring 2.4 cm. No pelvic soft tissue mass. Impression: No traumatic injury or acute inflammatory changes regarding the chest, abdomen and pelvis. MR Brain: Radiologist's impression: FINDINGS: [id number] enlargement of the supratentorial ventricular system out of proportion to the degree of cerebral sulcal prominence. No mass effect or midline shift. Patchy T2 FLAIR hyperintensities in the supratentorial white matter and kj, typical for moderate chronic microvascular ischemic changes. 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 No diffusion restriction to suggest acute infarction. Very shallow FLAIR hyperintensity at the left temporal convexity may represent dural thickening and/or chronic subdural hematoma or hematohygroma. No intrinsic T1 shortening or hyperattenuation on prior CT to suggest recent hemorrhage. ?Punctate susceptibility blooming within the central medulla is nonspecific though may represent a chronic microhemorrhage. 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 The major arterial flow voids of the skullbase are preserved. Hyperostosis frontalis interna. The globes are symmetric. Mild paranasal sinus mucosal thickening. Trace right mastoid fluid. IMPRESSION: 1. No acute infarction or intracranial mass effect. 2. Large chronic infarction? inferior left cerebellar hemisphere. 3. Very shallow FLAIR hyperintensity at the left temporal convexity may represent dural thickening and/or chronic subdural hematoma or hematohygroma. No intrinsic T1 shortening, or hyperattenuation on prior CT, to suggest recent hemorrhage. 4. 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 No evidence for recent lesional hemorrhage. 5. Moderate chronic microvascular ischemic changes. 6. [id number] enlargement of the supratentorial ventricular system out of proportion to the degree of cerebral sulcal prominence may be secondary to central predominant volume loss, though raises the possibility of normal-pressure hydrocephalus in an appropriate clinical setting. Discharge Plan Discharge Disposition: [facility] Date of Admission: 12/27/22 09:03 Attending Provider on Discharge: Franck Painter Consulting Providers: Aleksandra Dowd Primary Care Provider: Stortz,Joaquina A Condition: Improved Discharge Medications: New melatonin 3 mg Tablet 3 mg PO HS Qty: 30 0RF cephalexin 500 mg Capsule 500 mg PO TID Qty: 15 0RF lidocaine 5 % Adhesive Patch,Medicated 1 patch transdermal Q24H Qty: 30 0RF Levemir FlexTouch U-100 Insuln 100 unit/mL (3 mL) Insulin Pen 14 unit subcut DAILY Qty: 10 0RF acetaminophen 500 mg capsule 1,000 mg PO Q6H PRNQty: 100 0RF Continued metformin 500 mg tablet 500 mg PO BID Label Comments: TAKE ONE TABLET BY MOUTH TWICE DAILY WITH MEALS atorvastatin 20 mg tablet 20 mg PO HS Label Comments: TAKE ONE TABLET BY MOUTH ONE TIME DAILY AT BEDTIME irbesartan 75 mg tablet 75 mg PO DAILY Label Comments: TAKE ONE TABLET BY MOUTH ONE TIME DAILY bupropion HCl 300 mg tablet extended release 24 hr 300 mg PO DAILY ibuprofen 400 mg tablet 400 mg PO BID PRN duloxetine 60 mg capsule,delayed release(DR/EC) 60 mg PO DAILY (DME) Contour Next Test Strips Strip MISCELLANEOUS Label Comments: USE TO TEST BLOOD SUGARS ONCE DAILY acetaminophen 500 mg tablet 1,000 mg PO BID Label Comments: AND Q6H PRN epinephrine [EpiPen] 0.3 mg/0.3 mL auto-injector 0.3 ml IM DIRECTED PRN Rx Instructions: do not exceed 3 doses per episode Discontinued oxybutynin chloride 5 mg tablet 10 mg PO HS Label Comments: gabapentin 100 mg capsule 200 mg PO HS loperamide 2 mg capsule 2 mg PO DAILY Discharge Orders: Discharge Order (Routine); Ordered 01/01/23 Ordered By: Franck Painter Activity Level: Up with assist and Use Walker Discharge Diet: Diabetic Follow Up Appointments: Joaquina Cartwright DO [Primary Care Provider] - Admit to: SNF Discharge Potential: Fair Length of Stay: 30-90 days Can use facility standing orders?: Yes Code Status: DNR/DNI TEDs: Bilateral Knee Rehab Potential: Fair Therapy: Physical Therapy and Occupational Therapy Therapy Orders: Evaluate and Treat Oxygen: No Glucose Checks: Twice daily before breakfast and dinner Orders are good >30 days: Yes
[2023-01-01 09:14] VITALS: BP 159/92; PULSE 80; RESP 18; TEMP 36.5
[2023-01-01 10:16] VITALS: BP 165/89; PULSE 88; RESP 18; TEMP 36.5
--- NOTE | 2023-01-01 10:23 | PC.NURSE ---
D/C: [facility]. All belongings sent with patient. IV removed tip intact. Report was given over the phone. Pt is A&O to self. Took pills whole and tolerated diet. Reported no pain. had two inc. BMs. Up with A1 and walker.
== END 2023-01-01 10:04 | DRG 872 ==
LOC: ED 02:43 → MEDSURG 03:20
PROVIDERS: Family Medicine; Internal Medicine; Admitting Provider Family Medicine; Emergency Provider Family Medicine; PCP Family Medicine; Visit Provider Family Medicine
DX: A41.9 Sepsis, unspecified organism (principal); N39.0 Urinary tract infection, site not specified; F05 Delirium due to known physiological condition; Z68.41 Body mass index [BMI] 40.0-44.9, adult; B96.20 Unspecified Escherichia coli [E. coli] as the cause of diseases classified elsewhere; F03.90 Unspecified dementia, unspecified severity, without behavioral disturbance, psychotic disturbance, mood disturbance, and anxiety; S01.81XA Laceration without foreign body of other part of head, initial encounter; W01.0XXA Fall on same level from slipping, tripping and stumbling without subsequent striking against object, initial encounter; Y92.009 Unspecified place in unspecified non-institutional (private) residence as the place of occurrence of the external cause; I12.9 Hypertensive chronic kidney disease with stage 1 through stage 4 chronic kidney disease, or unspecified chronic kidney disease; E11.22 Type 2 diabetes mellitus with diabetic chronic kidney disease; N18.9 Chronic kidney disease, unspecified; Z79.4 Long term (current) use of insulin; Z79.84 Long term (current) use of oral hypoglycemic drugs; G47.33 Obstructive sleep apnea (adult) (pediatric); Z99.89 Dependence on other enabling machines and devices; I89.0 Lymphedema, not elsewhere classified; E66.01 Morbid (severe) obesity due to excess calories; I87.2 Venous insufficiency (chronic) (peripheral); M48.00 Spinal stenosis, site unspecified; N39.46 Mixed incontinence; K21.9 Gastro-esophageal reflux disease without esophagitis; G89.29 Other chronic pain; F34.1 Dysthymic disorder; M79.7 Fibromyalgia; E78.2 Mixed hyperlipidemia; Z96.643 Presence of artificial hip joint, bilateral; Z96.653 Presence of artificial knee joint, bilateral
CPT/HCPCS: 36415; 51798; 70450; 70551; 71045; 71260; 72125; 72170; 73552; 74177; 80048; 80076; 81001; 82962; 83605; 83735; 84443; 84484; 85025; 85610; 87040; 87086; 87186; 87631; 93005; 94761; 97110; 97161; 97165; 97530; 97535; 99285; 99291; A9270; G0378; G0390; J0696; J1650; J2543; J3370; J7030; J7050; J7120; Q9967

== ENCOUNTER 2023-01-01 09:55 | Outpatient (CLI) | payer MEDICARE, BC, SELFPAY | END 2023-01-01 09:56 | disposition home or self-care (01) | LOC: AMB 01-02 09:40 | PROVIDERS: PCP Family Medicine; Visit Provider Family Medicine | DX: F03.90 Unspecified dementia, unspecified severity, without behavioral disturbance, psychotic disturbance, mood disturbance, and anxiety (principal) | CPT/HCPCS: A0425; A0428 ==

== ENCOUNTER 2024-01-01 11:34 | Outpatient (REF) | payer MEDICARE, BC, SELFPAY ==
[2024-01-01 13:12] LABS: Chloride* 105 mmol/L (96-114); Potassium* 4.7 mmol/L (3.6-5.1); Sodium* 138 mmol/L (135-149)
[2024-01-01 13:15] LABS: Anion Gap 10 mEq/L (7-15); Blood Urea Nitrogen* 23 mg/dL (7-30); Carbon Dioxide* 23 mmol/L (20-32); Creatinine* 1.1 mg/dL (0.5-1.5); Estimated Glomerular Filt Rate 49 ml/min
[2024-01-01 13:16] LABS: Calcium* 9.7 mg/dL (8.4-10.6); Glucose* 176 mg/dL (60-115)
== END 2024-01-01 11:35 | disposition home or self-care (01) ==
LOC: NPINS 11:34
PROVIDERS: PCP Family Medicine; Visit Provider Nurse Practitioner Gerontology
DX: R60.0 Localized edema (principal)
CPT/HCPCS: 80048

== ENCOUNTER 2024-01-30 16:18 | Outpatient (CLI) | payer MEDICARE, BC, SELFPAY ==
--- OUTSIDE RECORDS SUMMARY | 2024-01-30 16:33 | XMS_ITS | Clinical Summary ---
Author Name Unknown Organization [employer] [facility] [employer] [facility] Address [place], [place] [address] Care Team Providers Care Talk Show Host Name Role Phone Yossi Mendez Unavailable Unavaila ble Shay Woodard MD Unavailable [phone] Allergies Active Allergy Reactions Criticality Noted Date Comments Adhesive Tape Contact Dermatitis 03/01/2007 TAKES THE SKIN OFF Aspirin, Buffered Anaphylaxis High 03/01/2007 Dexamethasone GI Upset Low 03/01/2007 Esophagitis from prolonged high dose use. Brompheniramine Maleate Rash 03/01/2007 Triamterene-Hydrochlorot hiazid Itching 03/01/2007 Ethylenediamine 08/10/2010 Raw Skin Iodine *Unknown - Pt Doesn't Remember 06/18/2008 Lisinopril Cough 03/14/2011 Shellfish Containing Products Anaphylaxis 06/18/2008 Simvastatin Myalgia 02/27/2012 Improved after stopping med Sulfite Anaphylaxis High 03/01/2007 Tetanus Antitoxin 03/01/2007 possible allergy Hydrocodone-Acetaminophe n Hypotension 04/10/2012 Caused low BP, feels Strange Medications Medication Sig Dispensed Refills Start Date End Date Status Blood-Glucose Meter (True Metrix Glucose Meter)Indications:D iabetes mellitus without complication (HC) Dispense glucose meter, test strips and lancets covered by the patient insurance. Test 1 time per day. 1 Each 09/12/2021 Active EPINEPHrine (EpiPen 2-Carlos) 0.3 mg/0.3 mL auto-injectorIndica tions:Allergic reaction to drug, sequela Inject 0.3 mg (1 pen) intramuscular each time if needed for Allergic Reaction. 2 Each 1 06/19/2022 Active atorvastatin (LIPITOR) 20 mg tabletIndications:M ixed hyperlipidemia Take 1 Tablet (20 mg) by mouth at bedtime. 90 Tablet 3 10/02/2022 Active buPROPion (WELLBUTRIN XL) 150 mg Extended-Release tabletIndications:F ibromyalgia Take 1 Tablet (150 mg) by mouth every morning. 90 Tablet 3 10/02/2022 Active DULoxetine (CYMBALTA) 30 mg Delayed-release capsuleIndications: Anxiety,Depression, recurrent (HC) Take 2 Capsules (60 mg) by mouth once daily. 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 90 Tablet 3 10/02/2022 Active metFORMIN (GLUCOPHAGE) 500 mg tabletIndications:D iabetes mellitus without complication (HC) Take 1 Tablet (500 mg) by mouth two times daily with meals. 9 am and 7 pm 180 Tablet 3 10/02/2022 Active verapamil SR (CALAN SR) 240 mg extended release tabletIndications:E ssential hypertension Take 1 Tablet (240 mg) by mouth once daily with a meal. 90 Tablet 3 10/02/2022 Active clotrimazole (LOTRIMIN) 1 % creamIndications:Ti karen corporis Apply topically to affected area(s) two times daily. 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 E11.9 NIDDM type II - Test 3 times/day, Reason: Med change as insulin recently stopped in hospital 100 Each 3 09/27/2022 Active glipiZIDE extended-release (GLUCOTROL XL) 5 mg Extended-Release tabletIndications:D iabetes mellitus without complication (HC) Take 1 Tablet (5 mg) by mouth once daily before a meal. 90 Tablet 3 10/04/2022 Active cholecalciferol (VITAMIN D3) 1,000 unit tabletIndications:D ysthymic disorder Take 1 Tablet (1,000 units) by mouth once daily. 90 Tablet 3 10/15/2022 Active oxybutynin (DITROPAN) 5 mg tabletIndications:O veractive bladder 5mg in morning and 10mg at night. 270 Tablet 3 11/28/2022 Active acetaminophen (TYLENOL EXTRA STRGTH) 500 mg tabletIndications:L umbar radiculopathy Take 1 Tablet (500 mg) by mouth every 6 hours if needed for Headache or Pain. Max acetaminophen dose: 4000mg in 24 hrs. 100 Tablet 1 11/28/2022 Active ibuprofen (ADVIL; MOTRIN) 200 mg tabletIndications:L umbar radiculopathy Take 2 Tablets (400 mg) by mouth two times daily. As needed 100 Tablet 1 11/28/2022 Active loperamide (IMODIUM) 2 mg capsuleIndications: Acute diarrhea 1 tablet in the morning as needed 90 Capsule 3 11/28/2022 Active gabapentin (NEURONTIN) 100 mg capsuleIndications: Lumbar radiculopathy Take 2 Capsules (200 mg) by mouth at bedtime. 60 Capsule 2 12/11/2022 Active nystatin (MYCOSTATIN) creamIndications:Ye ast infection Apply topically to affected area(s) two times daily. Apply to abdominal folds and under breasts until redness resolved. 90 g 1 01/17/2023 Active CPAPIndications:Obs tructive sleep apnea CPAP machine for home use at pressure: 11 , Heated humidifier x 1 [...] Need: 99 months, Frequency of use: Daily 1 Each 1 03/27/2023 Active Active Problems Problem Noted Date Diagnosed Date CKD (chronic kidney disease) stage 3, GFR 30-59 ml/min 10/23/2020 Overview: Per chart review: creatinine intermittently elevated since 2012 ranging from 1.07-1.66. In 2019, Dr Guerrero noted baseline to be around 1.2 ROB started Dec with increase creatinine 20-30% (depending if compare with 1.07 or baseline 1.2). Repeat end of Oct 2020, if increasing further t/c decreasing irbesartan and nephrology consult. See lab note sent via [employer]. Controlled type 2 diabetes m albert with complication, with long-term current use of insulin 04/12/2020 Trigeminal neuralgia of right side of face 09/03 BRITANY 04/05/2004 AHI-45 09/22/2018 Lymphedema of both lower extremities 07/01/2015 DDD (degenerative disc disease), thoracic 2014 DDD (degenerative disc disease), lumbar 12/02/19 15 Severe lumbar facet arthropathy 10/20/2014 S/P knee replacement 06/07/2012 ACP (advance care planning) 08/13/2011 Overview: Discussed 08/13/2011 At risk for falling 08/13/2011 Overview: Uses cane when out; home: has a walker. 08/13/2011 Chronic pain 05/16/2011 Fibromyalgia 07/20/2010 Overview: S/P Accupuncture x 2 with no benefit. 05/16/2011 Unspecified urinary incontinence 07/20/2010 Overview: Reports much improved with Ditropan. 08/11/2010 Glenohumeral Arthropathy, Right Shoulder 010 Colonic polyps 04/07/2009 Overview: Colonoscopy 04/2009 normal repeat in 5 years Colonoscopy 06/2014 diverticulosis, no follow up needed Unspecified essential hypertension 06/19/2008 Esophageal reflux 07/24/2007 Dysthymic disorder 07/24/2007 Generalized osteoarthrosis, unspecified site 08/2007 Type II or unspecified type diabetes mellitus without mention of complication, not stated as uncontrolled 07/24/2007 Overview: No October 2012, 11/27 Morbid obesity 05/07/2007 Mixed hyperlipidemia 03/06/2007 Other specified cardiac dysrhythmias(427.89) Overview: SVT s/p Ablation 10/1991 Resolved Problems Problem Noted Date Diagnosed Date Resolved Date Long-term (current) use of anticoagulants 06/28/2008 02/03/2009 Routine general medical exam ination at a health care facility 03/03/2007 10/20/2014 Immunizations Name Administration Dates Next Due AMB INFLUENZA IIV3 (AGE 65+ YRS) PF (Flu Clinic Only) 07/14/2018 COVID-19 vaccine (Moderna 100mcg/0.5mL) PF, MDV 12/29/2020 COVID-19 vaccine (Luxoft-Bio NTech 30mcg/0.3mL) 12YO+ BIVALENT PF, MDV 10/04/2022 Influenza, High-dose Inactivated 020,07/14/2019,09/07/2016,2014 Influenza, High-dose Quadriv alent Inactivated 07/25/2021 Influenza, Inactivated AIIV4 (Age 65+ Years) Preserv Free 06/19/2022 Influenza, Inactivated IIV3 (Age 65+ Years) Preserv Free 08/07/2017 Pneumococcal Poly,23-Valent (Pneumovax) 05/17/2016 Pneumococcal conj 13-Valent (Prevnar 13) 02/15/2015 Zoster (Shingrix-RZV, recombinant) 01/20/2021, Family History Medical History Relation Name Comments Heart Disease Father [place] Hypertension Father [place] Hypertension Mother Melissa Stroke Mother Melissa cva at 56yo Heart Disease Sister Rhina Tachycardia; s p Ablation - didn't work; on Atenolol Anesthesia Problem No Family History Blood Disease No Family History Cancer-breast No Family History Relation Name Status Comments Father Boston (Age 61) accidental asphyxiation Mother Melissa (Age 63) hemorrhagi c stroke Sister Rhina Alive Social History Tobacco Use Types Packs/Day Years Used Date Smoking Tobacco: Never Smokeless Tobacco: Never Tobacco Cessation:Counseling Given: Yes Alcohol Use Standard Drinks/Week Comments Yes 0 (1 standard drink = 0.6 oz pur e alcohol) Rare PHQ-2 Answer Date Recorded PHQ-2 TOTAL SCORE 3 10/04/2022 Social Connections Answer Date Recorded Frequency of Communication with Friends and Fami ly Not on file 07/23/2023 Alcohol Use Answer Date Recorded How often do you have a drink containing alcohol ? 1 10/03/2021 How many drinks containing a lcohol do you have on a typical day when you are drinking? 0 10/03/2021 How often do you have five or more drinks on one occasion? 0 10/03/2021 Financial Resource Strain Answer Date R ecorded Difficulty of Paying Living Expenses 3 07/18/2022 Difficulty of Paying Living Expenses Not on file 07/18/2022 Food Insecurity Answer Date Recorded Worried About Running Out of Food in the Last Ye ar 1 07/18/2022 Transportation Needs Answer Date Record ed Lack of Transportation (Medical) 1 07/18/2022 Housing Stability Answer Date Recorded Unable to Pay for Housing in the Last Year 1 07/18/2022 Sex and Gender Information Value Date Recorded Sex Assigned at Not on file Gender Identity Not on file Sexual Orientation Not on file Obstetrics History Para Term AB IAB SAB Ectopic Multiple Livin g Live Births 2 2 1 2 Date Outcome GA Total Labor Labor//3rd Weight Sex Delivery Anes PTL Judy A1 A5 Name Cl in Para Term Last Filed Vital Signs Vital Sign Reading Time Taken Comments Blood Pressure 131/76 12/11/2022 3:04 PM PLATE GAUGER Pulse 86 12/11/2022 3:04 PM PLATE GAUGER Temperature 37.1 ??C (98.7 ??F) 10/22/2022 10:[address] Respiratory Rate 18 10/18/2022 4:13 PM PLATE GAUGER Oxygen Saturation 94% 12/11/2022 3:04 PM PLATE GAUGER Inhaled Oxygen Concentration - - Weight 112 kg (247 lb) 10/04/2022 9:15 AM PLATE GAUGER Height 161.9 cm (5' 3.75) 10/04/2022 9:15 AM CS T Body Mass Index 42.73 10/04/2022 9:15 AM PLATE GAUGER Plan of Treatment Health Maintenance Due Date Last Done Comments Tetanus booster 03/18/2018 03/18/2008 (Declined) COVID-19 vaccine series ( season) 2023 10/04/2022, 09/28/2021, 12/29/2020, Additional history exists BMI (ht and wt on same day) for age 18+ 10/04/2023 10/04/2022, 10/03/2021, 09/14/2020, Additional history exists Depression screening for age 12+ 10/05/2023 10/05/2022, 10/04/2022, 12/19/2021, Additional history exists Medicare Wellness for age 65+ 10/05/2023, 10/03/2021, 09/14/2020, Additional history exists Influenza for age 65+ 06/14/2024 06/19/2022 , 07/25/2021, 06/14/2020, Additional history exists DEXA/DXA scan for age 65+ Completed 04/17/2011 Pneumococcal series for age 65+ Completed 6, 02/15/2015 Zoster (shingles) series for age 50+ Completed 01/20/2021, 09/20/2020 Medical Devices Implanted Type Area Pharmacy Benefit Manager Device Identifier Shelf Expiration Date Model / Serial / Lot Cup Acetab 52mm - [id number] Implanted:Qty: 1 on 06/18/[address] [facility] Left: Hip DEPUY 1217-22-0 52 # / / [id number] Eliminator [place] Hole 1246-03-000 - [id number] Implanted:Qty: 1 on 06/18/[address] [facility] Left: Hip DEPUY 1246-03-0 00 # / / [id number] Liner Acetab Ultamet Mom 52x36 1218-87-352 - [id number] Implanted:Qty: 1 on 06/18/[address] [facility] Left: Hip DEPUY 1218-87-3 52 # / / [id number] Screw Canclls Bone 6.5x20mm 1217-20-500 - [id number] Implanted:Qty: 1 on 06/18/[address] [facility] Left: Hip DEPUY 1217-20-5 00 # / / [id number] Screw Canclls Bone 6.5x35mm 1217-35-500 - [id number] Implanted:Qty: 1 on 06/18/[address] [facility] Left: Hip DEPUY 1217-35-5 00 # / / [id number] Fem Stem Corail2 Std Sz9 - [id number] Implanted:Qty: 1 on 06/18/[address] [facility] Left: Hip DEPUY [id number]# / / [id number] Head Fem Aubrey M 36mm +[id number] - [id number] Implanted:Qty: 1 on 06/18/[address] [facility] Left: Hip DEPUY 1365-51-0 00 # / / [id number] Advance Directives Documents on File Type Date Recorded Patient Quality Control Supervisor Expl anation Healthcare Directive 12/19/2021 3:39 PM [facility] DIRECTIVE, 02/25/2019 * Full Code (Latest Code Status on File) Date Activated Date Inactivated Comments 06/18/2008 10:57 AM 06/22/2008 1:52 PM * Full Code Date Activated Date Inactivated Comments 06/18/2008 9:12 AM 06/18/2008 10:57 AM Care Teams Talk Show Host Relationship Specialty Start Date End Date Yossi Mendez Orthopedics Surgery - Orthopedics 02/27/12 Shay Woodard MD [address] [facility] [address] [place] [address] Endocrinology 02/27/12
[2024-01-30 17:14] LABS: Bilirubin Urine Negative (Negative); Blood Urine Trace-intact (Negative); Color Urine Yellow (Yellow); Glucose Urine Negative (Negative); Ketones Urine Negative (Negative); Leukocyte Esterase Urine 1+ (Negative); Nitrite Urine Positive (Negative); Protein Urine Negative (Negative); Urobilinogen Urine 0.2 (0.2-1.0); pH Urine 5.5 (5.0-8.5)
[2024-01-30 17:35] LABS: Appearance Urine Slightly Cloudy (Clear)
[2024-01-30 17:50] LABS: Bacteria Urine Moderate; Squamous Epithelial Cell Urine Few (None-Few)
== END 2024-01-30 16:19 | disposition home or self-care (01) ==
LOC: NPLBINS 16:31
PROVIDERS: PCP Family Medicine; Visit Provider Nurse Practitioner Gerontology
DX: R53.1 Weakness (principal)
CPT/HCPCS: 81001; 87086; 87186

== ENCOUNTER 2024-03-03 11:41 | Outpatient (REF) | payer BC, SELFPAY ==
--- OUTSIDE RECORDS SUMMARY | 2024-03-03 11:44 | XMS_ITS | Clinical Summary ---
Author Name Unknown Organization [employer] [facility] [employer] Address [place], [place] [address] Care Team Providers Care Machine Stuffer Automatic Name Role Phone Yossi Mendez Unavailable Unavaila ble Shay Woodard MD Unavailable [phone] Allergies Active Allergy Reactions Criticality Noted Date [...] 2 diabetes mellitus with microalbuminuria, unspecified whether terminal carman insulin use Dispense item covered by pt [...] nephrology consult. See lab note sent via [employer]. Controlled type 2 diabetes m albert with [...] (Moderna 100mcg/0.5mL) PF, MDV 12/29/2020 COVID-19 vaccine (Starteed-Bio NTech 30mcg/0.3mL) 12YO+ BIVALENT PF, MDV 10/04/2022 [...] Comments Blood Pressure 131/76 12/11/2022 3:04 PM BIOLOGICAL SCIENCE TECHNICIAN Pulse 86 12/11/2022 3:04 PM BIOLOGICAL SCIENCE TECHNICIAN Temperature 37.1 ??C (98.7 ??F) 10/22/2022 10:[address] Respiratory Rate 18 10/18/2022 4:13 PM BIOLOGICAL SCIENCE TECHNICIAN Oxygen Saturation 94% 12/11/2022 3:04 PM BIOLOGICAL SCIENCE TECHNICIAN Inhaled Oxygen Concentration - - Weight 112 kg (247 lb) 10/04/2022 9:15 AM BIOLOGICAL SCIENCE TECHNICIAN Height 161.9 cm (5' 3.75) 10/04/2022 9:15 AM CS T Body Mass Index 42.73 10/04/2022 9:15 AM BIOLOGICAL SCIENCE TECHNICIAN Plan of Treatment Health Maintenance Due Date [...] 01/20/2021, 09/20/2020 Medical Devices Implanted Type Area Assistant Manager Bilingual Device Identifier Shelf Expiration Date Model / Serial / Lot Cup Acetab 52mm - [id number] Implanted:Qty: 1 on 06/18/2008 at [facility] Left: Hip DEPUY 1217-22-0 52 # / / [id number] Eliminator [place] 1246-03-000 - [id number] Implanted:Qty: 1 on 06/18/2008 at [facility] Left: Hip DEPUY 1246-03-0 00 # / / [id number] Liner Acetab Ultamet Mom 52x36 1218-87-352 - [id number] Implanted:Qty: 1 on 06/18/2008 at [facility] Left: Hip DEPUY 1218-87-3 52 # / / [id number] Screw Canclls Bone 6.5x20mm 1217-20-500 - [id number] Implanted:Qty: 1 on 06/18/2008 at [facility] Left: Hip DEPUY 1217-20-5 00 # / / [id number] Screw Canclls Bone 6.5x35mm 1217-35-500 - [id number] Implanted:Qty: 1 on 06/18/2008 at [facility] Left: Hip DEPUY 1217-35-5 00 # / / [id number] Fem Stem Corail2 Std Sz9 - [id number] Implanted:Qty: 1 on 06/18/2008 at [facility] Left: Hip DEPUY [id number]# / / [id number] Head Fem Aubrey M 36mm +1.81201-65-282 - [id number] Implanted:Qty: 1 on 06/18/2008 at [facility] Left: Hip DEPUY 1365-51-0 00 # / / [id number] Advance Directives Documents on File Type Date Recorded Patient Animal Impersonator Expl anation Healthcare Directive 12/19/2021 3:39 PM [facility] LTHCARE DIRECTIVE, 02/25/2019 * Full Code (Latest Code Status on File) Date Activated Date Inactivated Comments 06/18/2008 10:57 AM 06/22/2008 1:52 PM * Full Code Date Activated Date Inactivated Comments 06/18/2008 9:12 AM 06/18/2008 10:57 AM Care Teams Machine Stuffer Automatic Relationship Specialty Start Date End Date Yossi Mendez Orthopedics Surgery - Orthopedics 02/27/12 Shay Woodard MD [address] [facility] [address] [place] [address] Endocrinology 02/27/12
[2024-03-03 12:12] LABS: Hemoglobin A1C* 7.5 % (0-5.6)
[2024-03-03 12:21] LABS: Chloride* 106 mmol/L (96-114); Potassium* 4.5 mmol/L (3.6-5.1); Sodium* 140 mmol/L (135-149)
[2024-03-03 12:24] LABS: Anion Gap 8 mEq/L (7-15); Blood Urea Nitrogen* 24 mg/dL (7-30); Carbon Dioxide* 26 mmol/L (20-32); Estimated Glomerular Filt Rate 55 ml/min
[2024-03-03 12:25] LABS: Calcium* 9.1 mg/dL (8.4-10.6); Glucose* 177 mg/dL (60-115)
== END 2024-03-03 11:42 | disposition home or self-care (01) ==
LOC: NPINS 11:41
PROVIDERS: PCP Family Medicine; Visit Provider Nurse Practitioner Gerontology
DX: E11.9 Type 2 diabetes mellitus without complications (principal)
CPT/HCPCS: 80048; 83036

== ENCOUNTER 2024-03-27 13:01 | Outpatient (REF) | payer BC, SELFPAY ==
--- OUTSIDE RECORDS SUMMARY | 2024-03-27 13:07 | XMS_ITS | Clinical Summary ---
Author Organization [employer] [facility] [employer] Address [place], [place] [address] Care Team Providers Care Epoxy Specialist Name Role Phone Yossi Mendez Unavailable Unavaila ble Shay Woodard MD Unavailable [phone] Allergies Active Allergy Reactions Criticality Noted Date [...] 2 diabetes mellitus with microalbuminuria, unspecified whether fpc insulin use Dispense item covered by pt [...] nephrology consult. See lab note sent via [employer]. Controlled type 2 diabetes m albert with [...] (Moderna 100mcg/0.5mL) PF, MDV 12/29/2020 COVID-19 vaccine (Pfizer-Bio NTech 30mcg/0.3mL) 12YO+ BIVALENT PF, MDV 10/04/2022 [...] Outcome GA Total Labor Labor//3rd Weight Sex Type Anes PTL Judy A1 A5 Name Clin Para Term Last Filed Vital Signs Vital Sign Reading Time Taken Comments Blood Pressure 131/76 12/11/2022 3:04 PM DIRECTOR OF WOMEN'S SERVICES Pulse 86 12/11/2022 3:04 PM DIRECTOR OF WOMEN'S SERVICES Temperature 37.1 ??C (98.7 ??F) 10/22/2022 10:[address] Respiratory Rate 18 10/18/2022 4:13 PM DIRECTOR OF WOMEN'S SERVICES Oxygen Saturation 94% 12/11/2022 3:04 PM DIRECTOR OF WOMEN'S SERVICES Inhaled Oxygen Concentration - - Weight 112 kg (247 lb) 10/04/2022 9:15 AM DIRECTOR OF WOMEN'S SERVICES Height 161.9 cm (5' 3.75) 10/04/2022 9:15 AM CS T Body Mass Index 42.73 10/04/2022 9:15 AM DIRECTOR OF WOMEN'S SERVICES Plan of Treatment Health Maintenance Due Date [...] 01/20/2021, 09/20/2020 Medical Devices Implanted Type Area Medical Billing Clerk Device Identifier Shelf Expiration Date Model / Serial / Lot Cup Acetab 52mm - [id number] Implanted:Qty: 1 on 06/18/2008 at [facility] Left: Hip DEPUY 1217-22-0 52 # / / [id number] Eliminator [place] 1246-03-000 - [id number] Implanted:Qty: 1 on 06/18/2008 at [facility] Left: Hip DEPUY 1246-03-0 00 # / / [id number] Liner Acetab Ultamet Mom 52x36 1218-87-352 - [id number] Implanted:Qty: 1 on 06/18/2008 at [facility] Left: Hip DEPUY 1218-87-3 52 # / / [id number] Screw Canclls Bone 6.5x20mm 1217-20-500 - [id number] Implanted:Qty: 1 on 06/18/2008 at [facility] Left: Hip DEPUY 1217-20-5 00 # / / [id number] Screw Canclls Bone 6.5x35mm 1217-35-500 - [id number] Implanted:Qty: 1 on 06/18/2008 at [facility] Left: Hip DEPUY 1217-35-5 00 # / / [id number] Fem Stem Corail2 Std Sz9 - [id number] Implanted:Qty: 1 on 06/18/2008 at [facility] Left: Hip DEPUY [id number]# / / [id number] Head Fem Aubrey M 36mm +1.09232-94-656 - [id number] Implanted:Qty: 1 on 06/18/2008 at [facility] Left: Hip DEPUY 1365-51-0 00 # / / [id number] Advance Directives Documents on File Type Date Recorded Patient Sanitizer Expl anation Healthcare Directive 12/19/2021 3:39 PM HEA LTHCARE DIRECTIVE, 02/25/2019 * Full Code (Latest Code Status on File) Date Activated Date Inactivated Comments 06/18/2008 10:57 AM 06/22/2008 1:52 PM * Full Code Date Activated Date Inactivated Comments 06/18/2008 9:12 AM 06/18/2008 10:57 AM Care Teams Epoxy Specialist Relationship Specialty Start Date End Date Andrea Yossi Goldsmith Orthopedics Surgery - Orthopedics 02/27/12 Shay Woodard MD [address] [facility] [address] [place] [address] Endocrinology 02/27/12
[2024-03-27 13:18] LABS: Appearance Urine Clear (Clear); Bilirubin Urine Negative (Negative); Blood Urine Negative (Negative); Color Urine Yellow (Yellow); Glucose Urine Negative (Negative); Ketones Urine Negative (Negative); Leukocyte Esterase Urine Negative (Negative); Nitrite Urine Positive (Negative); Protein Urine Negative (Negative); Specific Gravity Urine 1.015 (1.000-1.030); Urobilinogen Urine 0.2 (0.2-1.0); pH Urine 5.5 (5.0-8.5)
[2024-03-27 13:58] LABS: Bacteria Urine Moderate; RBC Urine 0-2 (0-2); Squamous Epithelial Cell Urine Few (None-Few)
== END 2024-03-27 13:02 | disposition home or self-care (01) ==
LOC: NPINS 13:01
PROVIDERS: PCP Family Medicine; Visit Provider Family Medicine
DX: N39.0 Urinary tract infection, site not specified (principal)
CPT/HCPCS: 81001; 87086; 87186

== ENCOUNTER 2024-05-05 12:52 | Outpatient (REF) | payer BC, SELFPAY ==
--- OUTSIDE RECORDS SUMMARY | 2024-05-05 12:56 | XMS_ITS | Clinical Summary ---
Author Organization [employer] [facility] [employer] Address [place], [place] [address] Care Team Providers Care Adding Machine Servicer Name Role Phone Yossi Mendez Unavailable Unavaila ble Shay Woodard MD Unavailable [phone] Allergies Active Allergy Reactions Criticality Noted Date [...] 2 diabetes mellitus with microalbuminuria, unspecified whether jail insulin use Dispense item covered by pt [...] nephrology consult. See lab note sent via [employer]. Controlled type 2 diabetes m albert with [...] Comments Blood Pressure 131/76 12/11/2022 3:04 PM EDI COORDINATOR Pulse 86 12/11/2022 3:04 PM EDI COORDINATOR Temperature 37.1 ??C (98.7 ??F) 10/22/2022 10:[address] Respiratory Rate 18 10/18/2022 4:13 PM EDI COORDINATOR Oxygen Saturation 94% 12/11/2022 3:04 PM EDI COORDINATOR Inhaled Oxygen Concentration - - Weight 112 kg (247 lb) 10/04/2022 9:15 AM EDI COORDINATOR Height 161.9 cm (5' 3.75) 10/04/2022 9:15 AM CS T Body Mass Index 42.73 10/04/2022 9:15 AM EDI COORDINATOR Plan of Treatment Health Maintenance Due Date [...] 01/20/2021, 09/20/2020 Medical Devices Implanted Type Area Storekeeper Steward Device Identifier Shelf Expiration Date Model / Serial / Lot Cup Acetab 52mm - [id number] Implanted:Qty: 1 on 06/18/2008 at [facility] Left: Hip DEPUY 1217-22-0 52 # / / [id number] Eliminator [place] Hole 1246-03-000 - [id number] Implanted:Qty: 1 on 06/18/2008 at [facility] Left: Hip DEPUY 1246-03-0 00 # / / [id number] Liner Acetab Ultamet Mom 52x36 1218-87-352 - [id number] Implanted:Qty: 1 on 06/18/2008 at [facility] Left: Hip DEPUY 1218-87-3 52 # / / [id number] Screw Canclls Bone 6.5x20mm 1217-20-500 - [id number] Implanted:Qty: 1 on 06/18/2008 at [facility] Left: Hip DEPUY 1217-20-5 00 # / / [id number] Screw Canclls Bone 6.5x35mm 1217-35-500 - [id number] Implanted:Qty: 1 on 06/18/2008 at [facility] Left: Hip DEPUY 1217-35-5 00 # / / [id number] Fem Stem Corail2 Std Sz9 - [id number] Implanted:Qty: 1 on 06/18/2008 at [facility] Left: Hip DEPUY [id number]# / / [id number] Head Fem Aubrey M 36mm +1.47144-69-802 - [id number] Implanted:Qty: 1 on 06/18/2008 at [facility] Left: Hip DEPUY 1365-51-0 00 # / / [id number] Advance Directives Documents on File Type Date Recorded Patient Soaping Machine Back Tender Expl anation Healthcare Directive 12/19/2021 3:39 PM HEA LTHCARE DIRECTIVE, 02/25/2019 * Full Code (Latest Code Status on File) Date Activated Date Inactivated Comments 06/18/2008 10:57 AM 06/22/2008 1:52 PM * Full Code Date Activated Date Inactivated Comments 06/18/2008 9:12 AM 06/18/2008 10:57 AM Care Teams Adding Machine Servicer Relationship Specialty Start Date End Date Andrea Yossi Goldsmith Orthopedics Surgery - Orthopedics 02/27/12 Shay Woodard MD [address] [facility] [address] [place] [address] Endocrinology 02/27/12
[2024-05-05 13:13] LABS: Appearance Urine Cloudy (Clear); Bilirubin Urine Negative (Negative); Blood Urine Trace-intact (Negative); Color Urine Yellow (Yellow); Glucose Urine Negative (Negative); Ketones Urine Negative (Negative); Leukocyte Esterase Urine Trace (Negative); Nitrite Urine Positive (Negative); Protein Urine 1+ (Negative); Urobilinogen Urine 0.2 (0.2-1.0)
[2024-05-05 13:28] LABS: Bacteria Urine Many; Squamous Epithelial Cell Urine Moderate (None-Few)
== END 2024-05-05 12:53 | disposition home or self-care (01) ==
LOC: NPINS 12:52
PROVIDERS: PCP Family Medicine; Visit Provider Nurse Practitioner Gerontology
DX: N39.0 Urinary tract infection, site not specified (principal)
CPT/HCPCS: 81001; 81003; 87086

== ENCOUNTER 2024-11-10 10:48 | Outpatient (REF) | payer BC, SELFPAY ==
[2024-11-10 11:25] LABS: Hemoglobin A1C* 7.2 % (0-5.6)
[2024-11-10 11:26] LABS: Chloride* 105 mmol/L (96-114); Potassium* 4.6 mmol/L (3.6-5.1); Sodium* 139 mmol/L (135-149)
[2024-11-10 11:29] LABS: Anion Gap 8 mEq/L (7-15); Blood Urea Nitrogen* 20 mg/dL (7-30); Calcium* 9.3 mg/dL (8.4-10.6); Carbon Dioxide* 26 mmol/L (20-32); Creatinine* 0.9 mg/dL (0.5-1.5); Estimated Glomerular Filt Rate 62 ml/min; Glucose* 202 mg/dL (60-115)
== END 2024-11-10 10:49 | disposition home or self-care (01) ==
LOC: NPINS 10:48
PROVIDERS: PCP Family Medicine; Visit Provider Nurse Practitioner Gerontology
DX: E11.9 Type 2 diabetes mellitus without complications (principal)
CPT/HCPCS: 80048; 83036

== ENCOUNTER 2025-03-08 22:27 | Outpatient (CLI) | payer BC, SELFPAY | END 2025-03-08 22:28 | disposition home or self-care (01) | PROVIDERS: PCP Family Medicine; Visit Provider Family Medicine | DX: R41.82 Altered mental status, unspecified (principal) | CPT/HCPCS: A0998 ==

== ENCOUNTER 2025-05-05 09:54 | Outpatient (REF) | payer BC, SELFPAY ==
[2025-05-05 10:20] LABS: Chloride* 102 mmol/L (96-114); Sodium* 136 mmol/L (135-149)
[2025-05-05 10:21] LABS: Potassium* 4.1 mmol/L (3.6-5.1)
[2025-05-05 10:24] LABS: Anion Gap 8 mEq/L (7-15); Blood Urea Nitrogen* 22 mg/dL (7-30); Calcium* 9.5 mg/dL (8.4-10.6); Carbon Dioxide* 26 mmol/L (20-32); Creatinine* 1.0 mg/dL (0.5-1.5); Estimated Glomerular Filt Rate 55 ml/min; Glucose* 228 mg/dL (60-115)
--- OUTSIDE RECORDS SUMMARY | 2025-05-06 00:13 | XMS_ITS | Clinical Summary ---
Author Organization [facility] Address [address] [place] [id number] Care Team Providers Care Therapeutic Assistant Name Role Phone Yossi Mendez Unavailable Unavaila ble Shay Woodard MD Unavailable [phone] Allergies Active Allergy Reactions Criticality Noted Date [...] 04/10/2012 Caused low BP, feels Strange Medications Blood-Glucose Meter (True Metrix Glucose Meter)Indications: Diabetes mellitus without complication (HC) Dispense glucose meter, test strips and lancets covered by the patient insurance. Test 1 time per day. 1 Each 09/12/20 21 Active EPINEPHrine (EpiPen 2-Carlos) 0.3 mg/0.3 mL auto-injectorIndic ations:Allergic reaction to drug, sequela Inject 0.3 mg (1 pen) intramuscular each time if needed for Allergic Reaction. 2 Each 1 06/19/20 22 Active atorvastatin (LIPITOR) 20 mg tabletIndications: Mixed hyperlipidemia Take 1 Tablet (20 mg) by mouth at bedtime. 90 Tablet 3 10/02/20 22 Active buPROPion (WELLBUTRIN XL) 150 mg Extended-Release tabletIndications: Fibromyalgia Take 1 Tablet (150 mg) by mouth every morning. 90 Tablet 3 10/02/20 22 Active DULoxetine (CYMBALTA) 30 mg Delayed-release capsuleIndications :Anxiety,Depressio n, recurrent Take 2 Capsules (60 mg) by mouth once daily. 180 Capsule 3 10/02/20 22 Active irbesartan (AVAPRO) 75 mg tabletIndications: Diabetic nephropathy associated with type 2 diabetes mellitus (HC) Take 1 Tablet (75 mg) by mouth once daily. 90 Tablet 3 10/02/20 22 Active metFORMIN (GLUCOPHAGE) 500 mg tabletIndications: Diabetes mellitus without complication (HC) Take 1 Tablet (500 mg) by mouth two times daily with meals. 9 am and 7 pm 180 Tablet 3 10/02/20 22 Active verapamil SR (CALAN SR) 240 mg extended release tabletIndications: Essential hypertension Take 1 Tablet (240 mg) by mouth once daily with a meal. 90 Tablet 3 10/02/20 22 Active clotrimazole (LOTRIMIN) 1 % creamIndications:T inea corporis Apply topically to affected area(s) two times daily. 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 E11.9 NIDDM type II - Test 3 times/day, Reason: Med change as insulin recently stopped in hospital 100 Each 3 09/27/20 22 Active glipiZIDE extended-release (GLUCOTROL XL) 5 mg Extended-Release tabletIndications: Diabetes mellitus without complication (HC) Take 1 Tablet (5 mg) by mouth once daily before a meal. 90 Tablet 3 10/04/20 22 Active cholecalciferol (VITAMIN D3) 1,000 unit tabletIndications: Dysthymic disorder Take 1 Tablet (1,000 units) by mouth once daily. 90 Tablet 3 10/15/19 23 Active oxybutynin (DITROPAN) 5 mg tabletIndications: Overactive bladder 5mg in morning and 10mg at night. 270 Tablet 3 11/28/19 Active acetaminophen (TYLENOL EXTRA STRGTH) 500 mg tabletIndications: Lumbar radiculopathy Take 1 Tablet (500 mg) by mouth every 6 hours if needed for Headache or Pain. Max acetaminophen dose: 4000mg in 24 hrs. 100 Tablet 1 11/28/19 Active ibuprofen (ADVIL; MOTRIN) 200 mg tabletIndications: Lumbar radiculopathy Take 2 Tablets (400 mg) by mouth two times daily. As needed 100 Tablet 1 11/28/19 23 Active loperamide (IMODIUM) 2 mg capsuleIndications :Acute diarrhea 1 tablet in the morning as needed 90 Capsule 3 11/28/19 Active gabapentin (NEURONTIN) 100 mg capsuleIndications :Lumbar radiculopathy Take 2 Capsules (200 mg) by mouth at bedtime. 60 Capsule 2 12/11/19 Active nystatin (MYCOSTATIN) creamIndications:Y east infection Apply topically to affected area(s) two times daily. Apply to abdominal folds and under breasts until redness resolved. 90 g 1 01/18/20 Active CPAPIndications:Ob structive sleep apnea CPAP machine for home use [...] Frequency of use: Daily 1 Each 1 03/27/20 Active Active Problems Problem Noted Date Diagnosed Date CKD (chronic kidney disease) stage 3, GFR 30-59 ml/min 10/23/2020 Overview (10/23/2020): Per chart review: creatinine intermittently elevated since 2012 ranging from 1.07-1.66. In 2019, Dr Guerrero noted baseline to be around 1.2 ROB started Dec with increase creatinine 20-30% (depending if compare with 1.07 or baseline 1.2). Repeat end of Oct 2020, if increasing further t/c decreasing irbesartan and nephrology consult. See lab note sent via [employer]. Controlled type 2 diabetes m albert with complication, with long-term current use of insulin 04/12/2020 Trigeminal neuralgia of right side of face 09/03 BRITANY 04/05/2004 AHI-45 09/22/2018 Lymphedema of both lower extremities 07/01/2015 DDD (degenerative disc disease), thoracic 2014 DDD (degenerative disc disease), lumbar 12/02/19 15 Severe lumbar facet arthropathy 10/20/2014 S/P knee replacement 06/07/2012 ACP (advance care planning) 08/13/2011 Overview (08/13/2011): Discussed 08/13/2011 At risk for falling 08/13/2011 Overview (08/13/2011): Uses cane when out; home: has a walker. 08/13/2011 Chronic pain 05/16/2011 Fibromyalgia 07/20/2010 Overview (05/16/2011): S/P Accupuncture x 2 with no benefit. 05/16/2011 Unspecified urinary incontinence 07/20/2010 Overview (08/11/2010): Reports much improved with Ditropan. 08/11/2010 Glenohumeral Arthropathy, Right Shoulder 010 Colonic polyps 04/07/2009 Overview (07/09/2014): Colonoscopy 04/2009 normal repeat in 5 years Colonoscopy 06/2014 diverticulosis, no follow up needed Unspecified essential hypertension 06/19/2008 Esophageal reflux 07/24/2007 Dysthymic disorder 07/24/2007 Generalized osteoarthrosis, unspecified site 08/2007 Type II or unspecified type diabetes mellitus without mention of complication, not stated as uncontrolled 07/24/2007 Overview (11/26/2013): Faby RIVERO October 2012, 11/27 Morbid obesity 05/07/2007 Mixed hyperlipidemia 03/06/2007 Other specified cardiac dysrhythmias(427.89) Overview (03/03/2007): SVT s/p Ablation 10/1991 Resolved Problems Problem Noted Date Diagnosed Date Resolved Date Long-term (current) use of anticoagulants 06/28/2008 02/03/2009 Routine general medical exam ination at a health care facility 03/03/2007 10/20/2014 Immunizations Immunization Administration Dates Next Due AMB INFLUENZA IIV3 [...] Housing in the Last Year 1 07/18/2022 Comments No Sex and Gender Information Value Date Recorded Sex Assigned at Not on file Legal Sex Female 6:08 AM MILK AND CREAM GRADER Gender Identity Not on file Sexual Orientation Not on file Occupation Industry Job Start Date Job End Date Retired Not on file Not on file Not on file Obstetrics History Para Term AB IAB SAB Ectopic Multiple Livin g Live Births 2 2 1 2 Date Outcome GA Total Labor Labor/2nd/3rd Weight Sex Type Anes PTL Judy A1 A5 Name Clin Para Term Last Filed Vital Signs Vital Sign Reading Time Taken Comments Blood Pressure 131/76 12/11/2022 3:04 PM MILK AND CREAM GRADER Pulse 86 12/11/2022 3:04 PM MILK AND CREAM GRADER Temperature 37.1 C (98.7 F) 10/22/2022 10:13 AM MILK AND CREAM GRADER Respiratory Rate 18 10/18/2022 4:13 PM MILK AND CREAM GRADER Oxygen Saturation 94% 12/11/2022 3:04 PM MILK AND CREAM GRADER Inhaled Oxygen Concentration - - Weight 112 kg (247 lb) 10/04/2022 9:15 AM MILK AND CREAM GRADER Height 161.9 cm (5' 3.75) 10/04/2022 9:15 AM CS T Body Mass Index 42.73 10/04/2022 9:15 AM MILK AND CREAM GRADER Plan of Treatment Health Maintenance Due Date Last Done Comments RSV vaccine for adults or (1 - 1-dose 75+ series) 2013 BMI (ht and wt on same day) for age 18+ 10/04/2023 10/04/2022, 10/03/2021, 09/14/2020, Additional history exists Depression screening for age 12+ 10/05/2023 10/05/2022, 10/04/2022, 12/19/2021, Additional history exists Medicare Wellness for age 65+ 10/05/2023 10/04/2022, 10/03/2021, 09/14/2020, Additional history exists COVID-19 vaccine series ( season) 2024 10/04/2022, 09/28/2021, 12/29/2020, Additional history exists Influenza Vaccine (#1) 2025 , 06/14/2020, 07/14/2019, Additional history exists DEXA/DXA scan for age 65+ Completed 04/17/2011 Pneumococcal series for age 50+ Completed 05/17/2016, 02/15/2015 Zoster (shingles) series for age 50+ Completed 01/20/2021, 09/20/2020 Hepatitis B series for 19+ Aged Out N o longer eligible based on patient's age to complete this topic Medical Devices Implanted Type Area Skin Care Instructor Device Identifier Shelf Expiration Date Model / Serial / Lot Cup Acetab 52mm - [id number] Implanted:Qty: 1 on 06/18/[address] [facility] Left: Hip DEPUY 1217-22-0 52 # / / [id number] Eliminator [place] 1246-03-000 - [id number] Implanted:Qty: 1 on 06/18/[address] [facility] Left: Hip DEPUY 1246-03-0 00 # / / [id number] Liner Acetab Ult[place] Mom 52x36 1218-87-352 - [id number] Implanted:Qty: 1 on 06/18/[address] [facility] Left: Hip DEPUY 1218-87-3 52 # / / [id number] Screw Canclls Bone 6.5x20mm 1217-20-500 - [id number] Implanted:Qty: 1 on 06/18/[address] [facility] Left: Hip DEPUY 1217-20-5 00 # / / [id number] Screw Canclls Bone 6.5x35mm 1217-35-500 - [id number] Implanted:Qty: 1 on 06/18/[address] [facility] Left: Hip DEPUY 1217-35-5 00 # / / [id number] Fem Stem Corail2 Std Sz9 - [id number] Implanted:Qty: 1 on 06/18/[address] [facility] Left: Hip DEPUY [id number]# / / [id number] Head Fem Aubrey Ryan 36mm +[id number] - [id number] Implanted:Qty: 1 on 06/18/[address] 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
== END 2025-05-05 09:55 | disposition home or self-care (01) ==
LOC: NPINS 09:54
PROVIDERS: PCP Family Medicine; Visit Provider Family Medicine
DX: N39.0 Urinary tract infection, site not specified (principal)
CPT/HCPCS: 80048

== ENCOUNTER 2025-08-17 13:35 | Outpatient (REF) | payer BC, SELFPAY ==
[2025-08-17 14:50] LABS: Chloride* 105 mmol/L (96-114); Potassium* 4.7 mmol/L (3.6-5.1); Sodium* 140 mmol/L (135-149)
[2025-08-17 14:53] LABS: Anion Gap 10 mEq/L (7-15); Blood Urea Nitrogen* 22 mg/dL (7-30); Calcium* 9.4 mg/dL (8.4-10.6); Carbon Dioxide* 25 mmol/L (20-32); Creatinine* 0.9 mg/dL (0.5-1.5); Estimated Glomerular Filt Rate 62 ml/min; Glucose* 130 mg/dL (60-115)
--- OUTSIDE RECORDS SUMMARY | 2025-08-18 00:14 | XMS_ITS | Clinical Summary ---
Author Organization [facility] Address [address] [place] [address] Care Team Providers Care Sleeve Sewer Name Role Phone Yossi Mendez Unavailable Unavaila ble Shay Wodoard MD Unavailable [phone] Allergies Active Allergy Reactions Criticality Noted Date [...] 2 diabetes mellitus with microalbuminuria, unspecified whether rat exterminator insulin use Dispense item covered by pt [...] nephrology consult. See lab note sent via [employer]. Controlled type 2 diabetes m albert with [...] on file Legal Sex Female 6:08 AM FACULTY CRIMINAL JUSTICE Gender Identity Not on file Sexual Orientation [...] Comments Blood Pressure 131/76 12/11/2022 3:04 PM FAC[employer]INAL [employer]ICE Pulse 86 12/11/2022 3:04 PM FAC[employer]Y [employer]INAL JUSTICE Temperature 37.1 C (98.7 F) 10/22/2022 10:13 AM FAC[employer]Y [employer]IN[employer] JUSTICE Respiratory Rate 18 10/18/2022 4:13 PM FACULTY CRIMINAL JUSTICE Oxygen Saturation 94% 12/11/2022 3:04 PM F[employer] Inhaled Oxygen Concentration - - Weight 112 kg (247 lb) 10/04/2022 9:15 AM FACULTY CRIMINAL JUSTICE Height 161.9 cm (5' 3.75) 10/04/2022 9:15 AM CS T Body Mass Index 42.73 10/04/2022 9:15 AM FACULTY CRIMINAL JUSTICE Plan of Treatment Health Maintenance Due Date Last Done Comments RSV vaccine for adults or (1 - 1-dose 75+ series) 2013 BMI (ht and wt on same day) for age 18+ 10/04/2023 10/04/2022, 10/03/2021, 09/14/2020, Additional history exists Depression screening for age 12+ 10/05/2023 10/05/2022, 10/04/2022, 12/19/2021, Additional history exists Medicare Wellness for age 65+ 10/05/2023 10/04/2022, 10/03/2021, 09/14/2020, Additional history exists Influenza Vaccine (#1) 2025 , 06/14/2020, 07/14/2019, Additional history exists DEXA/DXA scan for age 65+ Completed 04/17/2011 Pneumococcal series for age 50+ Completed 05/17/2016, 02/15/2015 Zoster (shingles) series for age 50+ Completed 01/20/2021, 09/20/2020 Hepatitis B series for 19+ Aged Out N o longer eligible based on patient's age to complete this topic Medical Devices Implanted Type Area Wash Oil Pump Operator Device Identifier Shelf Expiration Date Model / Serial / Lot Cup Acetab 52mm - [id number] Implanted:Qty: 1 on 06/18/2008 at [facility] Left: Hip DEPUY 1217-22-0 52 # / / [id number] Eliminator [place] 1246-03-000 - [id number] Implanted:Qty: 1 on 06/18/2008 at [facility] Left: Hip DEPUY 1246-03-0 00 # / / [id number] Liner Acetab [place] Mom 52x36 1218-87-352 - [id number] Implanted:Qty: 1 on 06/18/2008 at [facility] Left: Hip DEPUY 1218-87-3 52 # / / [id number] Screw Canclls Bone 6.5x20mm 1217-20-500 - [id number] Implanted:Qty: 1 on 06/18/2008 at [facility] Left: Hip DEPUY 1217-20-5 00 # / / [id number] Screw Canclls Bone 6.5x35mm 1217-35-500 - [id number] Implanted:Qty: 1 on 06/18/2008 at [facility] Left: Hip DEPUY 1217-35-5 00 # / / [id number] Fem Stem Corail2 Std Sz9 - [id number] Implanted:Qty: 1 on 06/18/2008 at [facility] Left: Hip DEPUY [id number]# / / [id number] Head Fem Aubrey M 36mm +[id number] - [id number] Implanted:Qty: 1 on 06/18/2008 at [facility] Left: Hip DEPUY 1365-51-0 00 # / / [id number] Insurance [facility] MEDICARE PART B HB ONLY MEDICARE PART A HB ONLY [place] BLUE PB ONLY [place] BLUE HB ONLY MEDICARE PPS MEDICARE PART B HB ONLY MEDICARE PART A HB ONLY [place] BLUE MR PB ONLY Advance Directives Documents on File Type Date Recorded Patient Dial Buffer Expl anation Healthcare Directive 12/19/2021 3:39 PM HEA LTHCARE DIRECTIVE, 02/25/2019 * Full Code (Latest Code Status on File) Date Activated Date Inactivated Comments 06/18/2008 10:57 AM 06/22/2008 1:52 PM * Full Code Date Activated Date Inactivated Comments 06/18/2008 9:12 AM 06/18/2008 10:57 AM Care Teams Sleeve Sewer Relationship Specialty Start Date End Date Yossi Mendez Orthopedics Surgery - Orthopedics 02/27/12 Shay Woodard MD [address] [place] [address] Endocrinology 02/27/12
== END 2025-08-17 13:36 | disposition home or self-care (01) ==
LOC: NPINS 13:35
PROVIDERS: PCP Family Medicine; Visit Provider Nurse Practitioner Gerontology
DX: E11.9 Type 2 diabetes mellitus without complications (principal)
CPT/HCPCS: 80048; 83036